=== PATIENT | male | born 1955 | race Two or more races ===

== ENCOUNTER 2020-05-07 11:44 | Inpatient (IN) | payer MEDICARE, OTHER ==
[~2020-05-07] VITALS: Ht 177.8 cm; Wt 59.9 kg
--- NOTE | 2020-05-07 11:55 | Emergency Room Report ---
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 Per EMS patient was Covid +2 days ago. He started having vomiting yesterday. Labs demonstrated sodium of 126. Unable to obtain further history at this time. Allergies: Coded Allergies: No Known Allergies (Unverified , 05/07/20) Patient History Reviewed Nursing Documentation: PMH: Agreed; PSxH: Agreed Review of Systems All Other Systems: limited - Nonverbal Physical Exam Sp02 EP Interpretation: abnormal General Appearance: other - Nonverbal, Chronically Ill ENT: dry mucus membranes Neck: supple, no meningismus Respiratory: no respiratory distress, no accessory muscle use, other - Scattered rhonchi Cardiovascular #1: regular rate, rhythm Gastrointestinal: non tender, soft Musculoskeletal: other - Contracted extremities Psychiatric: other - Nonverbal unable to assess Skin: no rash Medical Decision Making Diagnostic Impression: Primary Impression: COVID-19 Additional Impressions: UTI (urinary tract infection) Hyponatremia ER Course Patient pancultured. Patient started on broad-spectrum antibiotics for pneumonia and UTI. Patient is also COVID-19 positive. Patient mildly hypoxic. His lactate is normal. patient started on albuterol and IV Decadron. Patient admitted for further treatment and evaluation. Laboratory Tests Test 05/07/20 12:09 05/07/20 12:45 Arterial Blood pH 7.479 (7.350-7.450) Arterial Blood Partial Pressure CO2 31.9 mmHg (35.0-45.0) L Arterial Blood Partial Pressure O2 63.2 mmHg (75.0-100.0) L Arterial Blood HCO3 23.2 mmol/L (22.0-26.0) Arterial Blood Oxygen Saturation 92.8 % (95-100) L Arterial Blood Base Excess 0.2 (-2-2) Caleb Test Positive White Blood Count 4.6 K/UL (4.8-10.8) L Red Blood Count 3.77 M/UL (4.70-6.10) L Hemoglobin 10.8 G/DL (14.2-18.0) L Hematocrit 34.1 % (42.0-52.0) L Mean Corpuscular Volume 91 FL (80-99) Mean Corpuscular Hemoglobin 28.8 PG (27.0-31.0) Mean Corpuscular Hemoglobin Concent 31.8 G/DL (32.0-36.0) L Red Cell Distribution Width 13.8 % (11.6-14.8) Platelet Count 244 K/UL (150-450) Mean Platelet Volume 5.3 FL (6.5-10.1) L Neutrophils (%) (Auto) 68.2 % (45.0-75.0) Lymphocytes (%) (Auto) 22.5 % (20.0-45.0) Monocytes (%) (Auto) 5.4 % (1.0-10.0) Eosinophils (%) (Auto) 3.2 % (0.0-3.0) H Basophils (%) (Auto) 0.7 % (0.0-2.0) Prothrombin Time 12.7 SEC (9.30-11.50) H Prothrombin Time INR 1.2 (0.9-1.1) H Activated Partial Thromboplast Time 35 SEC (23-33) H D-Dimer Pending Urine Color Yellow Urine Appearance Clear Urine pH 7 (4.5-8.0) Urine Specific [place] 1.010 (1.005-1.035) Urine Protein Negative (NEGATIVE) Urine Glucose (UA) Negative (NEGATIVE) Urine Ketones Negative (NEGATIVE) Urine Blood Negative (NEGATIVE) Urine Nitrite Negative (NEGATIVE) Urine Bilirubin Negative (NEGATIVE) Urine Urobilinogen 1 MG/DL (0.0-1.0) H Urine Leukocyte Esterase 2+ (NEGATIVE) H Urine RBC Pending Urine WBC Pending Urine Squamous Epithelial Cells Pending Urine Bacteria Pending Sodium Level 129 MMOL/L (136-145) L Potassium Level 4.2 MMOL/L (3.5-5.1) Chloride Level 96 MMOL/L (98-107) L Carbon Dioxide Level 26 MMOL/L (21-32) Anion Gap 7 mmol/L (5-15) Blood Urea Nitrogen 13 mg/dL (7-18) Creatinine 1.1 MG/DL (0.55-1.30) Estimated Glomerular Filtration Rate > 60 mL/min (>60) Glucose Level 98 MG/DL (74-106) Lactic Acid Level Pending Calcium Level 8.1 MG/DL (8.5-10.1) L Magnesium Level Pending Ferritin Pending Total Bilirubin Pending Aspartate Amino Transferase (AST) Pending Alanine Aminotransferase (ALT) Pending Alkaline Phosphatase Pending Lactate Dehydrogenase Pending Troponin I Pending C-Reactive Protein, Quantitative Pending Pro-B-Type Natriuretic Peptide Pending Total Protein Pending Albumin Pending Globulin Pending Microbiology Date/Time Source Procedure Growth Status 05/07/20 13:00 Nasal Nares - Final Complete 05/07/20 13:00 Nasal Nares - Final Complete 05/07/20 12:45 Nasopharynx SARS-CoV-2 RdRp Gene Assay - Final Complete EKG Diagnostic Results Troponin ordered: Yes When was troponin ordered?: May 07, 2020 EKG Time: 13:12 EP Interpretation: Janae Dumas MD Rate: normal - 71 bpm Rhythm: NSR ST Segments: no acute changes ASA given to the pt in ED: No Rhythm Strip Diag. Results Rhythm Strip Time: 13:20 EP Interpretation: yes - Janae Dumas MD Rate: 72 bpm Rhythm: NSR, no PVC's, no ectopy Chest X-Ray Diagnostic Results Chest X-Ray Diagnostic Results : Chest X-Ray Ordered: Yes # of Views/Limited/Complete: 1 View Indication: Other - Fever EP Interpretation: Yes Interpretation: no effusion, no pneumothorax, other - Left lower lobe infiltrate Impression: Other - Pneumonia Electronically Signed by: Janae Dumas MD Other X-Ray Diagnostic Results Other X-Ray Diagnostic Results : X-Ray ordered: Abdominal x-ray # of Views/Limited Vs Complete: 2 View Indication: Other - Vomiting EP Interpretation: Yes Interpretation: nonspecific bowel gas, no sbo, other - Moderate stool Impression: No acute disease Electronically Signed by: Janae Dumas MD Disposition: ADMITTED INPATIENT Condition: Critical Physician Consult: Dr. Aranda Additional Instructions: Please note that this report is being documented using [employer] technology. This can lead to erroneous entry secondary to incorrect interpretation by the dictating instrument. Janae Dumas M.D. May 07, 2020 11:55
[2020-05-07 11:57] VITALS: BP 105/65
--- NOTE | 2020-05-07 11:57 | NUR ---
ED Nurse Note: Patient from [facility] and brought in by [facility] due to abnormal labs of NA 126 and 2 episodes of vomiting. Pt is awake but non verbal, No respiratory distress and came in with indwelling toth cath.
--- NOTE | 2020-05-07 12:30 | NUR ---
ED Nurse Note: Collected blood, Covid9 swab, flu swab and urine specimen then sent.
[2020-05-07] MEDS ORDERED: Acetaminophen 650mg/20.3ml GT ONE (12:45)
[2020-05-07] MEDS ORDERED: LORazepam Inj 2mg/ml 1ml IV ONE (12:45)
[2020-05-07] MEDS ORDERED: Albuterol ud Inhalation HHN ONE ×2 (13:15→15:45)
[2020-05-07] MEDS ORDERED: dexAMETHasone 10mg/ml Inj IV ONE (13:15)
[2020-05-07 13:43] LABS: BASOPHILS % (AUTO) 0.7 % (0.0-2.0); EOSINOPHILS % (AUTO) 3.2 % (0.0-3.0); HEMATOCRIT 34.1 % (42.0-52.0); HEMOGLOBIN 10.8 G/DL (14.2-18.0); LYMPHOCYTES % (AUTO) 22.5 % (20.0-45.0); MEAN CORPUSCULAR VOLUME 91 FL (80-99); MONOCYTES % (AUTO) 5.4 % (1.0-10.0); NEUTROPHILS % (AUTO) 68.2 % (45.0-75.0); PLATELET COUNT 244 K/UL (150-450); RED BLOOD COUNT 3.77 M/UL (4.70-6.10); RED CELL DISTRIBUTION WIDTH 13.8 % (11.6-14.8); WHITE BLOOD COUNT 4.6 K/UL (4.8-10.8)
[2020-05-07 13:49] LABS: APPEARANCE,URINE CLEAR; BILIRUBIN, URINE NEGATIVE (NEGATIVE); COLOR,URINE YELLOW; GLUCOSE, URINE (UA) NEGATIVE (NEGATIVE); KETONES,URINE NEGATIVE (NEGATIVE); LEUKOCYTE ESTERASE ,URINE 2+ (NEGATIVE); NITRITE,URINE NEGATIVE (NEGATIVE); PH,URINE 7 (4.5-8.0); PROTEIN,URINE NEGATIVE (NEGATIVE); UROBILINOGEN,URINE 1 MG/DL (0.0-1.0)
[2020-05-07 13:54] LABS: ANION GAP 7 mmol/L (5-15); BLOOD UREA NITROGEN 13 mg/dL (7-18); CALCIUM 8.1 MG/DL (8.5-10.1); CARBON DIOXIDE 26 MMOL/L (21-32); CHLORIDE 96 MMOL/L (98-107); CREATININE 1.1 MG/DL (0.55-1.30); POTASSIUM 4.2 MMOL/L (3.5-5.1); SODIUM 129 MMOL/L (136-145)
[2020-05-07 13:56] LABS: INR 1.2 (0.9-1.1)
[2020-05-07 14:11] LABS: ALANINE AMINOTRANSFERASE 19 U/L (12-78); ALBUMIN 2.3 G/DL (3.4-5.0); ALBUMIN/GLOBULIN RATIO 0.5 (1.0-2.7); ALKALINE PHOSPHATASE 61 U/L (46-116); ASPARTATE AMINO TRANSFERASE 31 U/L (15-37); BILIRUBIN,TOTAL 0.2 MG/DL (0.2-1.0); FERRITIN 130 NG/ML (8-388); LACTATE DEHYDROGENASE 236 U/L (81-234)
[2020-05-07] MEDS ORDERED: Vancomycin 1 GM in NS 275 ML IVPB ONE (14:15)
[2020-05-07] MEDS ORDERED: Cefepime HCl 2 GM in D5W 55 ML IVPB ONE (14:15)
[2020-05-07] MEDS ORDERED: HUMULIN R100 UNIT/1 SUBQ (14:43)
[2020-05-07] MEDS ORDERED: PROTONIX40 MG ORAL (14:43)
[2020-05-07] MEDS ORDERED: ATORVASTATIN CA40 MG ORAL (14:43)
[2020-05-07] MEDS ORDERED: FERROUS SULFAT325 MG ORAL (14:43)
[2020-05-07] MEDS ORDERED: LOSARTAN POTASS50 MG ORAL (14:43)
[2020-05-07] MEDS ORDERED: CARVEDILOL25 MG ORAL (14:43)
[2020-05-07] MEDS ORDERED: WELLBUTRIN SR100 MG ORAL (14:43)
[2020-05-07] MEDS ORDERED: FLOMAX0.4 MG ORAL (14:43)
[2020-05-07] MEDS ORDERED: BACTRIM DS TAB1 EAC1 ORAL (14:43)
[2020-05-07] MEDS ORDERED: PROSCAR5 MG ORAL (14:43)
[2020-05-07] MEDS ORDERED: GABAPENTIN600 MG ORAL (14:43)
[2020-05-07] MEDS ORDERED: AMLODIPINE BESY10 MG ORAL (14:43)
[2020-05-07] MEDS ORDERED: Enoxaparin 40mg Inj SUBQ SCH (14:45)
--- NOTE | 2020-05-07 15:09 | History and Physical ---
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 He recently tested positive for COVID-19. Patient is nonverbal and unable to provide any history. In ED, he was found to have hyponatremia as well as possible UTI. He does not appear to have respiratory symptoms/signs. Unable to verify patient's PMH, PSH, Fam Hx, Soc Hx due to patient's nonverbal status. Allergies: Coded Allergies: No Known Allergies (Unverified , 05/07/20) COVID-19 Screening Contact w/high risk pt: Yes Experienced COVID-19 symptoms?: No Medication History Scheduled Amlodipine Besylate* (Amlodipine Besylate*), 10 MG ORAL DAILY, (Reported) Atorvastatin Calcium* (Atorvastatin Calcium*), 80 MG ORAL BEDTIME, (Reported) Atorvastatin Calcium* (Atorvastatin Calcium*), 80 MG ORAL BEDTIME, (Reported) Bupropion Sr* (Wellbutrin Sr*), 150 MG ORAL DAILY, (Reported) Carvedilol* (Carvedilol*), 25 MG ORAL EVERY 12 HOURS, (Reported) Ferrous Sulfate* (Ferrous Sulfate*), 450 MG ORAL TID, (Reported) Finasteride* (Proscar*), 5 MG ORAL DAILY, (Reported) Gabapentin* (Gabapentin*), 600 MG ORAL THREE TIMES A DAY, (Reported) Losartan Potassium* (Losartan Potassium*), 100 MG ORAL DAILY, (Reported) Pantoprazole* (Protonix*), 40 MG ORAL DAILY, (Reported) Tamsulosin HCl (Flomax), 0.4 MG ORAL HS, (Reported) Trimethoprim/Sulfamethoxazole 160/800* (Bactrim Ds Tablet*), 1 TAB ORAL DAILY, (Reported) Miscellaneous Medications Insulin Regular, Human (Humulin R), 0 SUBQ, (Reported) Patient History Limited by: medical condition History Provided By: Medical Record Healthcare decision maker Resuscitation status Advanced Directive on File Review of Systems ROS Narrative Unable to obtain ROS due to patient's nonverbal status. Physical Exam General Appearance: no apparent distress, thin HEENT: normocephalic, atraumatic Neck: non-tender, supple, normal inspection Respiratory/Chest: lungs clear, normal breath sounds, no respiratory distress, no accessory muscle use Cardiovascular/Chest: normal rate, regular rhythm, no gallop/murmur Abdomen: soft, no organomegaly Extremities: other - severe contractures Skin Exam: normal pigmentation Neurologic: motor weakness Musculoskeletal: atrophy Last 24 Hour Vital Signs Date Time Temp Pulse Resp B/P (MAP) Pulse Ox O2 Delivery O2 Flow Rate FiO2 05/07/20 13:10 62 20 105/65 05/07/20 11:57 98.0 88 20 105/65 97 Room Air 05/07/20 11:47 99.7 62 20 105/65 (78) Room Air Laboratory Tests Test 05/07/20 12:09 05/07/20 12:45 Arterial Blood pH 7.479 (7.350-7.450) Arterial Blood Partial Pressure CO2 31.9 mmHg (35.0-45.0) L Arterial Blood Partial Pressure O2 63.2 mmHg (75.0-100.0) L Arterial Blood HCO3 23.2 mmol/L (22.0-26.0) Arterial Blood Oxygen Saturation 92.8 % (95-100) L Arterial Blood Base Excess 0.2 (-2-2) Caleb Test Positive White Blood Count 4.6 K/UL (4.8-10.8) L Red Blood Count 3.77 M/UL (4.70-6.10) L Hemoglobin 10.8 G/DL (14.2-18.0) L Hematocrit 34.1 % (42.0-52.0) L Mean Corpuscular Volume 91 FL (80-99) Mean Corpuscular Hemoglobin 28.8 PG (27.0-31.0) Mean Corpuscular Hemoglobin Concent 31.8 G/DL (32.0-36.0) L Red Cell Distribution Width 13.8 % (11.6-14.8) Platelet Count 244 K/UL (150-450) Mean Platelet Volume 5.3 FL (6.5-10.1) L Neutrophils (%) (Auto) 68.2 % (45.0-75.0) Lymphocytes (%) (Auto) 22.5 % (20.0-45.0) Monocytes (%) (Auto) 5.4 % (1.0-10.0) Eosinophils (%) (Auto) 3.2 % (0.0-3.0) H Basophils (%) (Auto) 0.7 % (0.0-2.0) Prothrombin Time 12.7 SEC (9.30-11.50) H Prothromb Time International Ratio 1.2 (0.9-1.1) H Activated Partial Thromboplast Time 35 SEC (23-33) H D-Dimer 0.68 mg/L FEU (0.00-0.49) H Urine Color Yellow Urine Appearance Clear Urine pH 7 (4.5-8.0) Urine Specific [place] 1.010 (1.005-1.035) Urine Protein Negative (NEGATIVE) Urine Glucose (UA) Negative (NEGATIVE) Urine Ketones Negative (NEGATIVE) Urine Blood Negative (NEGATIVE) Urine Nitrite Negative (NEGATIVE) Urine Bilirubin Negative (NEGATIVE) Urine Urobilinogen 1 MG/DL (0.0-1.0) H Urine Leukocyte Esterase 2+ (NEGATIVE) H Urine RBC 0-2 /HPF (0 - 0) H Urine WBC 2-4 /HPF (0 - 0) Urine Squamous Epithelial Cells None /LPF (NONE/OCC) Urine Bacteria Occasional /HPF (NONE) Sodium Level 129 MMOL/L (136-145) L Potassium Level 4.2 MMOL/L (3.5-5.1) Chloride Level 96 MMOL/L (98-107) L Carbon Dioxide Level 26 MMOL/L (21-32) Anion Gap 7 mmol/L (5-15) Blood Urea Nitrogen 13 mg/dL (7-18) Creatinine 1.1 MG/DL (0.55-1.30) Estimat Glomerular Filtration Rate > 60 mL/min (>60) Glucose Level 98 MG/DL (74-106) Lactic Acid Level 0.40 mmol/L (0.4-2.0) Calcium Level 8.1 MG/DL (8.5-10.1) L Magnesium Level 1.7 MG/DL (1.8-2.4) L Ferritin 130 NG/ML (8-388) Total Bilirubin 0.2 MG/DL (0.2-1.0) Aspartate Amino Transf (AST/SGOT) 31 U/L (15-37) Alanine Aminotransferase (ALT/SGPT) 19 U/L (12-78) Alkaline Phosphatase 61 U/L (46-116) Lactate Dehydrogenase 236 U/L (81-234) H Troponin I 0.019 ng/mL (0.000-0.056) C-Reactive Protein, Quantitative 2.5 mg/dL (0.00-0.90) H Pro-B-Type Natriuretic Peptide 57 pg/mL (0-125) Total Protein 6.6 G/DL (6.4-8.2) Albumin 2.3 G/DL (3.4-5.0) L Globulin 4.3 g/dL Albumin/Globulin Ratio 0.5 (1.0-2.7) L Microbiology Date/Time Source Procedure Growth Status 05/07/20 13:20 Rectum Received 05/07/20 13:00 Nasal Nares - Final Complete 05/07/20 13:00 Nasal Nares - Final Complete 05/07/20 12:45 Nasopharynx SARS-CoV-2 RdRp Gene Assay - Final Complete Height (Feet): 5 Height (Inches): 10.00 Weight (Pounds): 120 Medications Current Medications Medications (Trade) Dose Ordered Sig/Luis E Route PRN Reason Start Time Stop Time Status Last Admin Dose Admin Enoxaparin Sodium (Lovenox) 40 mg Q12HR SUBQ 05/07/20 14:45 08/05/20 14:44 05/07/20 15:02 Vancomycin HCl 1 gm/Sodium Chloride 275 ml @ 183.708 mls/hr ONCE ONCE IVPB 05/07/20 14:15 05/07/20 15:44 05/07/20 14:54 Assessment/Plan Assessment/Plan: #COVID-19 infection #Respiratory alkalosis - on ABG - CTX per ID - No indication for dexamethasone or remdesivir at this time per ID - Pulmonary consult linda Hood appreciated - ID consult linda Gold appreciated #Hyponatremia - Na 126 on admission #Renal insufficiency - Nephrology consult linda James appreciated - BMP daily #UTI - CTX per ID #HTN #Dyslipidemia - continue home meds #Hx of CVA #Nonverbal status - MANAGER WOUND CARE eval I spent 61 minutes on this patient's case, and 33 minutes was dedicated to counseling and/or care coordination with RN, telehealth case manager, consulting MD team I spent an additional 36 minutes on review of medical records including prior outside hospital records, consult notes, progress notes, procedures, imaging, labs, hemodynamics, and other clinical documentation. Maximiliano Pacheco M.D. May 07, 2020 15:09
--- NOTE | 2020-05-07 15:21 | NUR ---
ED Nurse Note: Placed patient on negative pressure room. Called RT for breathing treatment.
--- NOTE | 2020-05-07 15:35 | Diagnostic Imaging Report ---
EXAM: XR Abdomen, 2 Views CLINICAL HISTORY: VOMITING TECHNIQUE: Frontal view of the abdomen/pelvis with upright view of the abdomen. COMPARISON: None FINDINGS: Hardware: None. Abdomen: Nonobstructive but nonspecific bowel gas pattern. Moderate to large amount of stool. No free air. Bones: Chronic appearing deformity of the proximal right femur. Soft tissues: Normal. IMPRESSION: Nonobstructive but nonspecific bowel gas pattern. Moderate to large amount of stool.
--- NOTE | 2020-05-07 15:36 | Diagnostic Imaging Report ---
EXAM: XR Chest, 1 View CLINICAL HISTORY: AMS TECHNIQUE: Frontal view of the chest. COMPARISON: None FINDINGS: Hardware: None. Lungs/pleura: Mild left basilar atelectasis. No focal consolidation. No pleural effusion or pneumothorax. Heart/mediastinum: Normal. No cardiomegaly. Soft tissues: Unremarkable. Bones: No acute fracture. Upper abdomen: Normal. Other: The patient's hand projects over the right midlung and limits evaluation. IMPRESSION: The patient's hand projects over the right midlung and limits evaluation. Otherwise, no acute disease identified.
--- NOTE | 2020-05-07 15:50 | NUR ---
ED Nurse Note: RT at the bed side for breathing treatment.
--- NOTE | 2020-05-07 15:57 | NUR ---
ED Nurse Note: Report given to Sherman ELIZONDO of telemetry unit.
[2020-05-07 16:35] VITALS: BP 131/78
--- NOTE | 2020-05-07 16:35 | NUR ---
NURSE NOTES: PATIENT WAS BROUGHT TO TELE VIA [facility] FROM ED. COVID 19 + CALLED AND PROTOCOL IMPLEMENTED. PERSONAL BELONGINGS REVIEWED AND NOTED. PATIENT RECEIVED A/A/OX1, RESPONSE TO TACTILE STIMULI. NONVERBAL. PATIENT APPEARED TO BE CONTRACTED TO ALL EXTREMITIES UPPER AND LOWER. SKIN ASSESSMENT RENDERED AND INTACT WITH ALL THE BONY PROMINENCES. FEW DRY SCABS ON UPPER TORSO. VSS AND RECORDED. ON RA. NO ACUTE RESP DISTRESS NOTED. PIV PATENT AND INTACT. BAILEY CATH INPLACED AND ANCHORED WELL. HOB ELEVATED FOR ASPIRATION PRECAUTIONS. OBSERVED NPO XCEPT MEDS/ICE CHIPS. ADMISSION PROFILE DONE AND ADMISSION ORDERS ENTERED BY PMD. SIDERAILS ARE UPX3. CALL LIGHT IS WITHIN REACH. BED ALARM AND LOCKED ACTIVATED. WILL CONT THE PLAN OF CARE.
--- NOTE | 2020-05-07 18:10 | Consultation ---
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 He recently tested positive for COVID-19. Patient is nonverbal and unable to provide any history. In ED, he was found to have hyponatremia as well as possible UTI. He does not appear to have respiratory symptoms/signs. Unable to verify patient's PMH, PSH, Fam Hx, Soc Hx due to patient's nonverbal status. Allergies: Coded Allergies: No Known Allergies (Unverified , 05/07/20) Medication History Scheduled Amlodipine Besylate* (Amlodipine Besylate*), 10 MG ORAL DAILY, (Reported) Atorvastatin Calcium* (Atorvastatin Calcium*), 80 MG ORAL BEDTIME, (Reported) Atorvastatin Calcium* (Atorvastatin Calcium*), 80 MG ORAL BEDTIME, (Reported) Bupropion Sr* (Wellbutrin Sr*), 150 MG ORAL DAILY, (Reported) Carvedilol* (Carvedilol*), 25 MG ORAL EVERY 12 HOURS, (Reported) Ferrous Sulfate* (Ferrous Sulfate*), 450 MG ORAL TID, (Reported) Finasteride* (Proscar*), 5 MG ORAL DAILY, (Reported) Gabapentin* (Gabapentin*), 600 MG ORAL THREE TIMES A DAY, (Reported) Losartan Potassium* (Losartan Potassium*), 100 MG ORAL DAILY, (Reported) Pantoprazole* (Protonix*), 40 MG ORAL DAILY, (Reported) Tamsulosin HCl (Flomax), 0.4 MG ORAL HS, (Reported) Trimethoprim/Sulfamethoxazole 160/800* (Bactrim Ds Tablet*), 1 TAB ORAL DAILY, (Reported) Miscellaneous Medications Insulin Regular, Human (Humulin R), 0 SUBQ, (Reported) Patient History Healthcare decision maker Resuscitation status Advanced Directive on File No Review of Systems ROS Narrative Unable to obtain due to non-verbal status Physical Exam General Appearance: no apparent distress Lines, tubes and drains: peripheral HEENT: normocephalic, atraumatic Neck: non-tender Respiratory/Chest: chest wall non-tender, normal breath sounds Extremities: normal range of motion Skin Exam: normal pigmentation Last 24 Hour Vital Signs Date Time Temp Pulse Resp B/P (MAP) Pulse Ox O2 Delivery O2 Flow Rate FiO2 05/07/20 16:56 Room Air 05/07/20 16:35 96.8 77 20 131/78 (95) 98 05/07/20 16:19 97.8 81 17 117/80 96 Room Air 05/07/20 16:02 69 20 100 Room Air 21 83 20 95 05/07/20 13:40 62 20 105/65 97 05/07/20 13:10 62 20 105/65 05/07/20 11:57 98.0 88 20 105/65 97 Room Air 05/07/20 11:47 99.7 62 20 105/65 (78) Room Air Laboratory Tests Test 05/07/20 12:09 05/07/20 12:45 Arterial Blood pH 7.479 (7.350-7.450) Arterial Blood Partial Pressure CO2 31.9 mmHg (35.0-45.0) L Arterial Blood Partial Pressure O2 63.2 mmHg (75.0-100.0) L Arterial Blood HCO3 23.2 mmol/L (22.0-26.0) Arterial Blood Oxygen Saturation 92.8 % (95-100) L Arterial Blood Base Excess 0.2 (-2-2) Caleb Test Positive White Blood Count 4.6 K/UL (4.8-10.8) L Red Blood Count 3.77 M/UL (4.70-6.10) L Hemoglobin 10.8 G/DL (14.2-18.0) L Hematocrit 34.1 % (42.0-52.0) L Mean Corpuscular Volume 91 FL (80-99) Mean Corpuscular Hemoglobin 28.8 PG (27.0-31.0) Mean Corpuscular Hemoglobin Concent 31.8 G/DL (32.0-36.0) L Red Cell Distribution Width 13.8 % (11.6-14.8) Platelet Count 244 K/UL (150-450) Mean Platelet Volume 5.3 FL (6.5-10.1) L Neutrophils (%) (Auto) 68.2 % (45.0-75.0) Lymphocytes (%) (Auto) 22.5 % (20.0-45.0) Monocytes (%) (Auto) 5.4 % (1.0-10.0) Eosinophils (%) (Auto) 3.2 % (0.0-3.0) H Basophils (%) (Auto) 0.7 % (0.0-2.0) Prothrombin Time 12.7 SEC (9.30-11.50) H Prothromb Time International Ratio 1.2 (0.9-1.1) H Activated Partial Thromboplast Time 35 SEC (23-33) H D-Dimer 0.68 mg/L FEU (0.00-0.49) H Urine Color Yellow Urine Appearance Clear Urine pH 7 (4.5-8.0) Urine Specific [place] 1.010 (1.005-1.035) Urine Protein Negative (NEGATIVE) Urine Glucose (UA) Negative (NEGATIVE) Urine Ketones Negative (NEGATIVE) Urine Blood Negative (NEGATIVE) Urine Nitrite Negative (NEGATIVE) Urine Bilirubin Negative (NEGATIVE) Urine Urobilinogen 1 MG/DL (0.0-1.0) H Urine Leukocyte Esterase 2+ (NEGATIVE) H Urine RBC 0-2 /HPF (0 - 0) H Urine WBC 2-4 /HPF (0 - 0) Urine Squamous Epithelial Cells None /LPF (NONE/OCC) Urine Bacteria Occasional /HPF (NONE) Sodium Level 129 MMOL/L (136-145) L Potassium Level 4.2 MMOL/L (3.5-5.1) Chloride Level 96 MMOL/L (98-107) L Carbon Dioxide Level 26 MMOL/L (21-32) Anion Gap 7 mmol/L (5-15) Blood Urea Nitrogen 13 mg/dL (7-18) Creatinine 1.1 MG/DL (0.55-1.30) Estimat Glomerular Filtration Rate > 60 mL/min (>60) Glucose Level 98 MG/DL (74-106) Lactic Acid Level 0.40 mmol/L (0.4-2.0) Calcium Level 8.1 MG/DL (8.5-10.1) L Magnesium Level 1.7 MG/DL (1.8-2.4) L Ferritin 130 NG/ML (8-388) Total Bilirubin 0.2 MG/DL (0.2-1.0) Aspartate Amino Transf (AST/SGOT) 31 U/L (15-37) Alanine Aminotransferase (ALT/SGPT) 19 U/L (12-78) Alkaline Phosphatase 61 U/L (46-116) Lactate Dehydrogenase 236 U/L (81-234) H Troponin I 0.019 ng/mL (0.000-0.056) C-Reactive Protein, Quantitative 2.5 mg/dL (0.00-0.90) H Pro-B-Type Natriuretic Peptide 57 pg/mL (0-125) Total Protein 6.6 G/DL (6.4-8.2) Albumin 2.3 G/DL (3.4-5.0) L Globulin 4.3 g/dL Albumin/Globulin Ratio 0.5 (1.0-2.7) L Urine Legionella Antigen Pending Microbiology Date/Time Source Procedure Growth Status 05/07/20 13:20 Rectum Received 05/07/20 13:00 Nasal Nares - Final Complete 05/07/20 13:00 Nasal Nares - Final Complete 05/07/20 12:45 Nasopharynx SARS-CoV-2 RdRp Gene Assay - Final Complete Height (Feet): 5 Height (Inches): 10.00 Weight (Pounds): 132 Medications Current Medications Medications (Trade) Dose Ordered Sig/Luis E Route PRN Reason Start Time Stop Time Status Last Admin Dose Admin Atorvastatin Calcium (Lipitor) 80 mg BEDTIME ORAL 05/07/20 21:00 08/05/20 20:59 Bisacodyl (Dulcolax) 10 mg DAILYPRN PRN RECTAL Constipation 05/07/20 15:45 08/05/20 15:44 Bupropion HCl (Wellbutrin SR) 150 mg DAILY ORAL 05/08/20 09:00 06/07/20 08:59 UNV Dextrose (Dextrose 50%) 25 ml Q30M PRN IV Hypoglycemia 05/07/20 15:45 08/05/20 15:44 Dextrose (Dextrose 50%) 50 ml Q30M PRN IV Hypoglycemia 05/07/20 15:45 08/05/20 15:44 Heparin Sodium (Porcine) (Heparin 5000 units/ml) 5,000 units EVERY 12 HOURS SUBQ 05/08/20 09:00 06/22/20 08:59 Pantoprazole (Protonix) 40 mg DAILY IV 05/08/20 09:00 06/07/20 08:59 Assessment/Plan Diagnosis [place]: #Hyponatremia- hypovolumic #COVID infection #UTI #HLD #HTN #h/o CVA #nonverbal #failure to thrive - IVF on D5NS - ID eval - on ceftriaxone - follow cx - monitor sodium - GI eval - swallow eval - pulmonary eval - monitor UOP - replete lytes prn Time spent 65min Barak Aranda M.D. May 07, 2020 18:10
[2020-05-07] MEDS ORDERED: cefTRIAXone 1 GM in D5W 50 ML IVPB SCH (18:15)
--- NOTE | 2020-05-07 18:15 | Infectious Diseases Prog Note ---
Assessment/Plan Assessment/Plan Full consult dictated: A) 1) covid-19 virus infection, fevers 2) complicated uti 3) pmh noted 4) allergies - nkda P) 1) ceftriaxone 2) f/u on cultures 3) no indication for remdesivir or steroids 4) thank you Subjective Allergies: Coded Allergies: No Known Allergies (Unverified , 05/07/20) Objective Last 24 Hour Vital Signs Date Time Temp Pulse Resp B/P (MAP) Pulse Ox O2 Delivery O2 Flow Rate FiO2 05/07/20 16:56 Room Air 05/07/20 16:35 96.8 77 20 131/78 (95) 98 05/07/20 16:19 97.8 81 17 117/80 96 Room Air 05/07/20 16:02 69 20 100 Room Air 21 83 20 95 05/07/20 13:40 62 20 105/65 97 05/07/20 13:10 62 20 105/65 05/07/20 11:57 98.0 88 20 105/65 97 Room Air 05/07/20 11:47 99.7 62 20 105/65 (78) Room Air Height (Feet): 5 Height (Inches): 10.00 Weight (Pounds): 132 Microbiology Date/Time Source Procedure Growth Status 05/07/20 13:20 Rectum Received 05/07/20 13:00 Nasal Nares - Final Complete 05/07/20 13:00 Nasal Nares - Final Complete 05/07/20 12:45 Nasopharynx SARS-CoV-2 RdRp Gene Assay - Final Complete Laboratory Tests Test 05/07/20 12:09 05/07/20 12:45 Arterial Blood pH 7.479 (7.350-7.450) Arterial Blood Partial Pressure CO2 31.9 mmHg (35.0-45.0) L Arterial Blood Partial Pressure O2 63.2 mmHg (75.0-100.0) L Arterial Blood HCO3 23.2 mmol/L (22.0-26.0) Arterial Blood Oxygen Saturation 92.8 % (95-100) L Arterial Blood Base Excess 0.2 (-2-2) Caleb Test Positive White Blood Count 4.6 K/UL (4.8-10.8) L Red Blood Count 3.77 M/UL (4.70-6.10) L Hemoglobin 10.8 G/DL (14.2-18.0) L Hematocrit 34.1 % (42.0-52.0) L Mean Corpuscular Volume 91 FL (80-99) Mean Corpuscular Hemoglobin 28.8 PG (27.0-31.0) Mean Corpuscular Hemoglobin Concent 31.8 G/DL (32.0-36.0) L Red Cell Distribution Width 13.8 % (11.6-14.8) Platelet Count 244 K/UL (150-450) Mean Platelet Volume 5.3 FL (6.5-10.1) L Neutrophils (%) (Auto) 68.2 % (45.0-75.0) Lymphocytes (%) (Auto) 22.5 % (20.0-45.0) Monocytes (%) (Auto) 5.4 % (1.0-10.0) Eosinophils (%) (Auto) 3.2 % (0.0-3.0) H Basophils (%) (Auto) 0.7 % (0.0-2.0) Prothrombin Time 12.7 SEC (9.30-11.50) H Prothromb Time International Ratio 1.2 (0.9-1.1) H Activated Partial Thromboplast Time 35 SEC (23-33) H D-Dimer 0.68 mg/L FEU (0.00-0.49) H Urine Color Yellow Urine Appearance Clear Urine pH 7 (4.5-8.0) Urine Specific Nerinx 1.010 (1.005-1.035) Urine Protein Negative (NEGATIVE) Urine Glucose (UA) Negative (NEGATIVE) Urine Ketones Negative (NEGATIVE) Urine Blood Negative (NEGATIVE) Urine Nitrite Negative (NEGATIVE) Urine Bilirubin Negative (NEGATIVE) Urine Urobilinogen 1 MG/DL (0.0-1.0) H Urine Leukocyte Esterase 2+ (NEGATIVE) H Urine RBC 0-2 /HPF (0 - 0) H Urine WBC 2-4 /HPF (0 - 0) Urine Squamous Epithelial Cells None /LPF (NONE/OCC) Urine Bacteria Occasional /HPF (NONE) Sodium Level 129 MMOL/L (136-145) L Potassium Level 4.2 MMOL/L (3.5-5.1) Chloride Level 96 MMOL/L (98-107) L Carbon Dioxide Level 26 MMOL/L (21-32) Anion Gap 7 mmol/L (5-15) Blood Urea Nitrogen 13 mg/dL (7-18) Creatinine 1.1 MG/DL (0.55-1.30) Estimat Glomerular Filtration Rate > 60 mL/min (>60) Glucose Level 98 MG/DL (74-106) Lactic Acid Level 0.40 mmol/L (0.4-2.0) Calcium Level 8.1 MG/DL (8.5-10.1) L Magnesium Level 1.7 MG/DL (1.8-2.4) L Ferritin 130 NG/ML (8-388) Total Bilirubin 0.2 MG/DL (0.2-1.0) Aspartate Amino Transf (AST/SGOT) 31 U/L (15-37) Alanine Aminotransferase (ALT/SGPT) 19 U/L (12-78) Alkaline Phosphatase 61 U/L (46-116) Lactate Dehydrogenase 236 U/L (81-234) H Troponin I 0.019 ng/mL (0.000-0.056) C-Reactive Protein, Quantitative 2.5 mg/dL (0.00-0.90) H Pro-B-Type Natriuretic Peptide 57 pg/mL (0-125) Total Protein 6.6 G/DL (6.4-8.2) Albumin 2.3 G/DL (3.4-5.0) L Globulin 4.3 g/dL Albumin/Globulin Ratio 0.5 (1.0-2.7) L Urine Legionella Antigen Pending Current Medications Medications (Trade) Dose Ordered Sig/Luis E Route PRN Reason Start Time Stop Time Status Last Admin Dose Admin Atorvastatin Calcium (Lipitor) 80 mg BEDTIME ORAL 05/07/20 21:00 08/05/20 20:59 Bisacodyl (Dulcolax) 10 mg DAILYPRN PRN RECTAL Constipation 05/07/20 15:45 08/05/20 15:44 Bupropion HCl (Wellbutrin SR) 150 mg DAILY ORAL 05/08/20 09:00 06/07/20 08:59 UNV Dextrose (Dextrose 50%) 25 ml Q30M PRN IV Hypoglycemia 05/07/20 15:45 08/05/20 15:44 Dextrose (Dextrose 50%) 50 ml Q30M PRN IV Hypoglycemia 05/07/20 15:45 08/05/20 15:44 Heparin Sodium (Porcine) (Heparin 5000 units/ml) 5,000 units EVERY 12 HOURS SUBQ 05/08/20 09:00 06/22/20 08:59 Magnesium Sulfate 100 ml @ 100 mls/hr Q1H IVPB 05/07/20 18:15 05/07/20 20:14 Pantoprazole (Protonix) 40 mg DAILY IV 05/08/20 09:00 06/07/20 08:59 Nickolas Goldstein MD May 07, 2020 18:15
--- NOTE | 2020-05-07 18:47 | NUR ---
NURSE NOTES: sent urine culture to lab from indwelling cath. will cont to monitor.
--- NOTE | 2020-05-07 19:07 | NUR ---
NURSE HAND-OFF REPORT: Important Events on Shift:[ADMISSION RENDERED; BATHE AND SKIN ASSESSMENT DONE; PERSONAL BELONGINGS NOTED. ] Patient Status: [STABLE] Diet: [NPO XCEPT MEDS AND ICE CHIPS] Pending Orders: [LABAS AND CXR] Pending Results/Labs:[IN AM] Pending MD notification:[] Latest Vital Signs: Temperature 96.8 , Pulse 77 , B/P 131 /78 , Respiratory Rate 20 , O2 SAT 98 , Room Air, O2 Flow Rate . Vital Sign Comment: [] EKG Rhythm: Rhythm change?: MD Notified?: - MD Response: Latest Hankins Fall Score: 35 Fall Risk: Medium Risk Safety Measures: Call light Within Reach, Bed Alarm Zone 1, Side Rails Side Rails x2, Bed position Low and Locked. Fall Precautions: Yellow Socks Yellow Gown Report given to [MURRAY].
--- NOTE | 2020-05-07 19:51 | NUR ---
NURSE NOTES: Patient received from Mari ELIZONDO. Patient A&O x 0. Saturating well on room air. Patient is non verbal. Patient on NPO for swallow eval. IV site patent and intact on Left FA 20G SL. Bed in lowest position and locked. Call light and bedside table within reach. Will continue plan of care.
[2020-05-07 20:00] VITALS: BP 109/69
[2020-05-07] MEDS: Atorvastatin 80mg tab ORAL SCH ×2 (20:08→21:00)
--- NOTE | 2020-05-07 21:14 | Consultation ---
DATE OF CONSULTATION: 05/07/2020 INFECTIOUS DISEASE CONSULTATION CONSULTING PHYSICIAN: Nickolas Goldstein MD. ATTENDING PHYSICIAN: Barak Aranda MD. REFERRING PHYSICIANS: 1. Barak Aranda MD. 2. Maximiliano Pacheco MD. REASON FOR CONSULTATION: Urinary tract infection, COVID-19 infection, fevers. CHIEF COMPLAINT: The patient's chief complaint coming in the hospital is hyponatremia. HISTORY OF PRESENT ILLNESS: This is a 64-year-old male, who is not a very good historian. The patient presents to [facility] with what looks like hyponatremia from [facility] care facility. The patient has tested positive for COVID infection by molecular testing and PCR testing, I believe. Influenza testing is negative. The patient has significant hyponatremia with a sodium 129. The patient was noted to have 2+ leukocyte esterase on urinalysis and could have complicated UTI with hyponatremia. The patient also has fevers. Infectious Disease consultation is requested. Infectious Disease consultation requested because of the possible complicated urinary tract infection, complicated UTI, and also COVID-19 infection. The patient's saturations are stable. Initial chest x-ray was negative. The patient was placed empirically on Rocephin. He was given vancomycin and cefepime in the emergency room. MAR was noted. Orders were noted. Notes were reviewed. The patient did have fevers also in the emergency room. REVIEW OF SYSTEMS: CONSTITUTIONAL: As discussed, he did have fevers in the emergency room. He comes with generalized weakness and hyponatremia. HEAD AND NECK: No head pain or neck pain. CARDIAC: No chest pain or pressors. PULMONARY: No significant cough, congestion, shortness of breath, hemoptysis, or secretions GASTROINTESTINAL: No nausea, vomiting, abdominal pain, or diarrhea. GENITOURINARY: He has a Gregory. SKIN: No rash or itching. EXTREMITIES: No extremity pain. NEUROLOGICAL: No seizures. Generalized fatigue. MUSCULOSKELETAL: No joint pain. PAST MEDICAL HISTORY: The patient has a past medical history of hypertension, I believe, essential hypertension. He has history of CVA. He is nonverbal. He has history of renal insufficiency. He has hyponatremia. He could have depression, he is on Wellbutrin, and also dyslipidemia in addition to CVA, hypertension, weakness, and renal insufficiency. ALLERGIES: He has no known drug allergies. No antibiotic allergies. SOCIAL HISTORY: Negative for smoking, alcohol, or drug abuse. FAMILY HISTORY: Noncontributory. Negative for tuberculosis or cancer. MEDICATIONS: Upon reviewing the MAR, he is on following medications; he is on Wellbutrin, pantoprazole, heparin, atorvastatin, IV fluids. He was given vancomycin, cefepime, enoxaparin, dexamethasone, albuterol, lorazepam, and acetaminophen. Outside medications were noted and reconciliated. PHYSICAL EXAMINATION: VITAL SIGNS: Temperature 96.8, pulse rate 77, respiratory rate 20, blood pressure 131/78. Saturation 98% on room air. The patient has not been hypoxic on room air. GENERAL: Weak, nonverbal. He is in no acute distress. HEAD AND NECK: Oral exam, no thrush. Eye exam, no icterus. Normocephalic. Neck is supple. No JVD. HEART: Regular. No gallop or murmur. No friction rub. LUNGS: Clear bilaterally. No rhonchi or rales. ABDOMEN: Soft. Positive bowel sounds. Nontender. SKIN: No rash or dermatitis. MUSCULOSKELETAL: No joint pain or septic arthritis. Lower extremities are without cellulitis. PERIPHERAL VASCULAR: No gangrene or cyanosis. GENITOURINARY: The patient has a Gregory. Urine is cloudy. LINE SITES: Without phlebitis. NEUROLOGIC: General weakness, alert, responsive. LABORATORY DATA: UA with 2+ leukocyte esterase and bacteria. Creatinine 1.1. LFTs noted. Sodium 129. White count 4.6, hemoglobin 10.8. Cultures - SARS nasopharyngeal molecular testing or COVID testing was positive. Influenza testing negative. Outside COVID testing positive. Blood and urine cultures are pending. IMAGING: Chest x-ray shows no acute disease. No pneumonia. Chest x-ray initially was negative. Followup chest x-ray has been ordered. ASSESSMENT AND PLAN: 1. The patient has COVID-19 virus infection and fevers. He did have a temperature initially of 99.7. I believe he has history of temperatures. The patient's chest x-ray is negative and saturations are stable. There is no indication for remdesivir or dexamethasone at this time. The patient also looks like he has a complicated UTI, significant positive urinalysis with hyponatremia. At this time, we will continue antibiotic, Rocephin empirically for gram-negative coverage. Continue Rocephin for complicated urinary tract infection. Check urine culture and blood cultures. Monitor fevers. Monitor for hypoxia for COVID-19 infection. The patient is currently in COVID isolation. Continue Rocephin for now for UTI and continue supportive care for COVID-19 virus infection. Monitor fevers and check urine culture, blood cultures, laboratories, and followup chest x-ray. 2. Hyponatremia. Continue IV fluids per Renal and Medicine. 3. The patient is anemic. 4. Possible hyperlipidemia or dyslipidemia. 5. CVA. 6. Weakness. 7. Nonverbal. 8. Hypertension. Blood pressure treatment per primary care team. 9. Renal insufficiency. 10. Skin care per protocol. 11. The patient has no known drug allergies. 12. Social history is negative. 13. Family history is noncontributory. 14. MAR is noted. 15. Case discussed with RN. 16. Continue treatment per primary consultants. Thank you, I will follow. Nickolas Goldstein M.D. DR: RADHA JOB#: [id number] CC:
[2020-05-07] MEDS: cefTRIAXone 1 GM in D5W 50 ML IVPB SCH (21:43)
[2020-05-07] MEDS ORDERED: Varibar Pudding 230ml MC PRN (22:00)
[2020-05-07] MEDS ORDERED: Varibar Honey 250ml MC PRN (22:00)
[2020-05-07] MEDS ORDERED: Varibar Thin Liquid powder 148gm MC PRN (22:00)
[2020-05-07] MEDS ORDERED: Varibar Nectar 240ml MC PRN (22:00)
--- NOTE | 2020-05-07 22:00 | NUR ---
NURSE NOTES: Gave Magnesium late patient only had 1 IV access and notified [facility]. Also wasted PO atorvastatin for safety because patient was sleeping and has difficulty swallowing, risk for aspiration. Swallow eval tomorrow
[2020-05-08] VITALS (7 sets, daily range): BP systolic 102–131; BP diastolic 64–80
[2020-05-08 04:16] LABS: HEMATOCRIT 34.7 % (42.0-52.0); HEMOGLOBIN 10.7 G/DL (14.2-18.0); LYMPHOCYTES % (AUTO) 13.8 % (20.0-45.0); MEAN CORPUSCULAR VOLUME 91 FL (80-99); MONOCYTES % (AUTO) 5.7 % (1.0-10.0); NEUTROPHILS % (AUTO) 77.6 % (45.0-75.0); PLATELET COUNT 247 K/UL (150-450); RED CELL DISTRIBUTION WIDTH 13.5 % (11.6-14.8)
[2020-05-08 04:33] LABS: ANION GAP 7 mmol/L (5-15); BLOOD UREA NITROGEN 12 mg/dL (7-18); CALCIUM 7.9 MG/DL (8.5-10.1); CARBON DIOXIDE 25 MMOL/L (21-32); CHLORIDE 98 MMOL/L (98-107); CREATININE 1.1 MG/DL (0.55-1.30); POTASSIUM 4.8 MMOL/L (3.5-5.1); SODIUM 130 MMOL/L (136-145)
--- NOTE | 2020-05-08 07:18 | NUR ---
NURSE HAND-OFF REPORT: Important Events on Shift:[None] Patient Status: [] Diet: [NPO] Pending Orders: [] Pending Results/Labs:[] Pending MD notification:[] Latest Vital Signs: Temperature 97.7 , Pulse 77 , B/P 102 /64 , Respiratory Rate 18 , O2 SAT 94 , Room Air, O2 Flow Rate . Vital Sign Comment: [] EKG Rhythm: Sinus Rhythm Rhythm change?: N MD Notified?: - MD Response: Latest Hankins Fall Score: 55 Fall Risk: High Risk Safety Measures: Call light Within Reach, Bed Alarm Zone 1, Side Rails Side Rails x3, Bed position Low and Locked. Fall Precautions: Yellow Socks Yellow Gown Door Sign Patient Fall Education Report given to [Ana Cristina RN].
--- NOTE | 2020-05-08 07:23 | NUR ---
NURSE NOTES: Pt received from Tena ELIZONDO. Pt in bed awake and responds with mumble and nod, bed low and locked call light within reach. no distress noted.
--- NOTE | 2020-05-08 08:44 | Consultation ---
DATE OF CONSULTATION: 05/08/2020 CHIEF COMPLAINT: Nausea and vomiting. HISTORY OF PRESENT ILLNESS: Most of history per chart. The patient is a poor historian. The patient is a 64-year-old male with past medical history of CVA, very poorly verbal, history of hypertension, history of hypercholesteremia, possibly depression, BPH, chronic GERD, was admitted to the hospital with complaint of vomiting, was found to have a urinary tract infection, also COVID positive pneumonia. PAST MEDICAL HISTORY: Significant for: 1. History of hypertension. 2. CVA. 3. BPH. 4. Hypercholesteremia. 5. Chronic GERD. 6. Iron-deficiency. PAST SURGICAL HISTORY: Unknown. ALLERGIES: No known drug allergies. MEDICATIONS: Please see medication reconciliation list. SOCIAL HISTORY: Currently the patient lives in a fci. No recent history of tobacco, alcohol, or drug abuse. FAMILY HISTORY: Noncontributory. REVIEW OF SYSTEMS: Unable to obtain. PHYSICAL EXAMINATION: VITAL SIGNS: Temperature is 97.7, pulse 78, respirations 18, blood pressure is 106/64. HEENT: Normocephalic and atraumatic. Sclerae anicteric. NECK: Supple. No evidence of obvious lymphadenopathy. CARDIOVASCULAR: Regular rate and rhythm. Plus S1 and S2. LUNGS: Decreased breath sounds bilaterally and diffusely. ABDOMEN: Soft, nontender. No rebound. No guarding. No peritoneal sign. EXTREMITIES: No cyanosis. No clubbing. No edema. LABORATORY DATA: White count is 4, hemoglobin 10, hematocrit 34, platelets 247. Creatinine is 1.1, magnesium 1.7. ASSESSMENT: 1. Pneumonia. 2. Hyponatremia. 3. UTI. 4. Constipation. 5. Normocytic anemia. 6. History of CVA. 7. History of . 8. History of hypercholesteremia. 9. History of BPH. PLAN: Vomiting might be the combination of COVID positive pneumonia, UTI, hyponatremia, and also mild constipation. According to the nurses, has not had any vomiting overnight. The patient is NPO for swallow evaluation. Therefore, we are going to start IV fluids, D5 normal saline at 75 mL an hour while waiting for the swallow evaluation. If the patient passes swallow, we will start him on diet and slowly stop the IV fluids. In terms of hyponatremia, follow with Nephrology recommendation. Anemia is normocytic in nature. Apparently, the patient has prior history of anemia and is on iron. Plan to do anemia workup including iron panel, B12, folate, stool for OB. GI procedures on hold at this time unless there is emergency. In terms of constipation, KUB showed evidence of some constipation. Plan to start the patient on Colace and MiraLAX and monitor for bowel movement. Alejandro Jimenez M.D. DR: Sarai JOB#: [id number] CC:
--- NOTE | 2020-05-08 08:44 | Diagnostic Imaging Report ---
EXAM: XR Chest, 1 View CLINICAL HISTORY: INFECT TECHNIQUE: Frontal view of the chest. COMPARISON: Chest radiograph May 07, 2020. FINDINGS/IMPRESSION: No focal consolidation, pleural effusion, or pneumothorax. Numerous skin folds project over the lung alva. Cardiomegaly. Tortuous aorta. Old, healed posterior right rib fractures. Note, the right lung apex is obscured by the patient's hand. Recommend follow-up radiographs to have patient's hand excluded from the field-of- view.
[2020-05-08] MEDS: Pantoprazole Inj IV SCH (09:55)
[2020-05-08] MEDS: Docusate 100mg cap ORAL SCH ×2 (09:56→17:36)
[2020-05-08] MEDS: Heparin 5000 units/ml inj SUBQ SCH ×2 (09:56→21:13)
--- NOTE | 2020-05-08 10:58 | NUR ---
CASE MANAGEMENT:INITIAL REVIEW 64 YR OLD MALE BIBA FROM [facility] CC;ABNORMAL LABS SI;COVID POSITIVE. HYPONATREMIA. UTI. 99.7 88 20 105/65 95% ON RA WBC 4.6 NA 129 MAG 1.7 LDH 236 CRP 2.5 ALB 2.3 PT 12.7 INR 1.2 APTT 35 D-DIMER 0.68 UA+ UROBILINOGEN, LEUKOCYTE ESTERASE, RBC RAPID COVID ~ POSITIVE CXR ~ The patient's hand projects over the right midlung and limits evaluation. Otherwise, no acute disease identified. ABD XRAY ~ ortuous aorta. Old, healed posterior right rib fractures. IS;IVF N S BOLUS TYLENOL GT ATIVAN IV DECADRON IV X2 ROCEPHIN IV VANCOMYCIN IV PROVENTIL HHN ONCE ADMITTED TO TELE 05/07/20 @ 1543 TELE STATUS DCP;FROM [facility]
[2020-05-08] MEDS: BuPROPion SR 150mg tab ORAL SCH (11:00)
--- NOTE | 2020-05-08 12:57 | NUR ---
NURSE NOTES: Wellbutrin held because pt is pending st eval and does not seem to be able to solerate swallowing whole pills, and this one cant be crushed. Dr. Viera aware that we are not giving anything PO for now.
--- NOTE | 2020-05-08 13:06 | NUR ---
RD ASSESSMENT & RECOMMENDATIONS SEE CARE ACTIVITY FOR COMPLETE ASSESSMENT DAILY ESTIMATED NEEDS: Needs based on Pulmonary 60kg 25-35 kcals/kg 9389-7515 total kcals 1-1.5 g protein/kg 60-90 g total protein 25-30 mL/kg 6127-1496 total fluid mLs NUTRITION DIAGNOSIS: Swallowing difficulty r/t h/o CVA, as evidenced by pt is non verbal, NPO w/ pending [facility] eval. CURRENT DIET: NPO, pending [facility] PO DIET RECOMMENDATIONS: Liberalized Regular diet, texture per [facility] ADDITIONAL RECOMMENDATIONS: 1) Add Ensure Enlive w/ meals w/ diet order F/up w/ [facility], need for non oral feeds 2) Check lytes, replete as needed 3) Monitor weight, maintain calibrated weights 4) rec D5 while NPO
--- NOTE | 2020-05-08 13:15 | Consultation ---
DATE OF CONSULTATION: 05/08/2020 PULMONARY CONSULTATION HISTORY OF PRESENT ILLNESS: This is a 64-year-old male admitted to the hospital with a diagnosis of COVID pneumonia. The patient had a rapid antigen test that was positive in the emergency room. The patient is a resident at a extended care facility. He was sent in with hyponatremia. The patient has tested as an outpatient for COVID-19 as well. The patient started having emesis, was found to be hyponatremic. No other history is available at this point in time. PAST MEDICAL HISTORY: Previous CVA, hypertension, hyperlipidemia, psychiatric disorder, BPH. HOME MEDICATIONS: Flomax, losartan, ferrous sulfate, Coreg, bupropion, Lipitor, amlodipine. REVIEW OF SYSTEMS: Not obtainable. PHYSICAL EXAMINATION: GENERAL: Reveals a 64-year-old male. VITAL SIGNS: Blood pressure is 102/70, heart rate 74, respiratory rate 18, O2 saturation 98% on 2 L of oxygen. HEENT: Unremarkable. CHEST: Clear breath sounds bilaterally. ABDOMEN: Soft. EXTREMITIES: There is no edema. LABORATORY DATA: Lab testing shows white count 4000, hemoglobin 10.7. Sodium 130, glucose 129. ABG, pH 7.47, pCO2 31, pO2 63. Coags show D-dimer of 0.6. Serology is negative. X-ray chest shows old healed right rib fractures. Apart from that, there is no focal consolidation. IMPRESSION: 1. COVID-19 pneumonia. 2. Hyponatremia. 3. CVA. 4. . 5. Hyperlipidemia. DISCUSSION: The patient is saturating well on room air. I would recommend holding off on further therapies for COVID-19 pneumonia as he is not hypoxic. I note he has received Decadron one dose yesterday. Defer further choice to ID specialist. We will follow as chief passenger ship steward/stewardess. Jaguar Gann M.D. DR: Aster JOB#: [id number] CC:
--- NOTE | 2020-05-08 15:50 | Cardiology Report ---
APPROVED REPORT EKG Measurement Heart [id number] <Conclusion> Normal sinus rhythm Normal ECG
--- NOTE | 2020-05-08 16:32 | Nephrology Progress Note ---
Assessment/Plan Plan #Hyponatremia- hypovolumic #COVID infection #UTI #HLD #HTN #h/o CVA #nonverbal #failure to thrive - IVF on D5NS - ID eval - on ceftriaxone - follow cx - monitor sodium - GI eval - swallow eval - pulmonary eval - monitor UOP - replete lytes prn Time spent 65min Subjective ROS Limited/Unobtainable: Yes Subjective sodium is slowly uptrending with hydration afebrile vitals stable Objective Objective Last 24 Hour Vital Signs Date Time Temp Pulse Resp B/P (MAP) Pulse Ox O2 Delivery O2 Flow Rate FiO2 05/08/20 12:00 71 05/08/20 12:00 98.1 78 21 107/80 (89) 96 05/08/20 09:00 Room Air 05/08/20 08:00 73 05/08/20 08:00 97.7 78 21 102/71 (81) 96 05/08/20 04:00 97.7 78 18 102/64 (77) 94 05/08/20 04:00 77 05/08/20 00:00 97.5 71 19 102/64 (77) 96 05/08/20 00:00 68 05/07/20 21:00 Room Air 05/07/20 20:00 69 05/07/20 20:00 97.7 69 18 109/69 (82) 95 05/07/20 16:56 Room Air 05/07/20 16:35 96.8 77 20 131/78 (95) 98 Intake and Output 05/07/20 05/08/20 19:00 07:00 Intake Total 1238.7 ml Output Total 100 ml 700 ml Balance 1138.7 ml -700 ml Intake IV Total 1238.7 ml Output Urine Total 100 ml 700 ml # Bowel Movements 1 Laboratory Tests 05/08/20 03:30: White Blood Count 4.0L, Red Blood Count 3.80L, Hemoglobin 10.7L, Hematocrit 34.7L, Mean Corpuscular Volume 91, Mean Corpuscular Hemoglobin 28.2, Mean Corpuscular Hemoglobin Concent 30.8L, Red Cell Distribution Width 13.5, Platelet Count 247, Mean Platelet Volume 4.7L, Neutrophils (%) (Auto) 77.6H, Lymphocytes (%) (Auto) 13.8L, Monocytes (%) (Auto) 5.7, Eosinophils (%) (Auto) 0.0, B asophils (%) (Auto) 3.0H, Sodium Level 130L, Potassium Level 4.8, Chloride Level 98, Carbon Dioxide Level 25, Anion Gap 7, Blood Urea Nitrogen 12, Creatinine 1.1, Estimat Glomerular Filtration Rate > 60, Glucose Level 129H, Calcium Level 7.9L Height (Feet): 5 Height (Inches): 10.00 Weight (Pounds): 132 Objective General Appearance: no apparent distress Lines, tubes and drains: peripheral HEENT: normocephalic, atraumatic Neck: non-tender Respiratory/Chest: chest wall non-tender, normal breath sounds Extremities: normal range of motion Skin Exam: normal pigmentation Barak Aranda M.D. May 08, 2020 16:32
--- NOTE | 2020-05-08 17:08 | Consultation ---
History of Present Illness General Date patient seen: May 08, 2020 Reason for Hospitalization: Abnormal Labs Present Illness HPI 64M currently admitted to [facility] for abnormal labs was c/o abd pain cramping 4/10 without radiation early this AM. no n/v/f/c. passing flatus. intermittent cramping pain. surgery called to evaluate. patient seen, chart reviewed, patient examined. electrolytes being replaced Allergies: Coded Allergies: No Known Allergies (Unverified , 05/07/20) COVID-19 Screening Contact w/high risk pt: Yes Experienced COVID-19 symptoms?: No Medication History Scheduled Amlodipine Besylate* (Amlodipine Besylate*), 10 MG ORAL DAILY, (Reported) Atorvastatin Calcium* (Atorvastatin Calcium*), 80 MG ORAL BEDTIME, (Reported) Atorvastatin Calcium* (Atorvastatin Calcium*), 80 MG ORAL BEDTIME, (Reported) Bupropion Sr* (Wellbutrin Sr*), 150 MG ORAL DAILY, (Reported) Carvedilol* (Carvedilol*), 25 MG ORAL EVERY 12 HOURS, (Reported) Ferrous Sulfate* (Ferrous Sulfate*), 450 MG ORAL TID, (Reported) Finasteride* (Proscar*), 5 MG ORAL DAILY, (Reported) Gabapentin* (Gabapentin*), 600 MG ORAL THREE TIMES A DAY, (Reported) Losartan Potassium* (Losartan Potassium*), 100 MG ORAL DAILY, (Reported) Pantoprazole* (Protonix*), 40 MG ORAL DAILY, (Reported) Tamsulosin HCl (Flomax), 0.4 MG ORAL HS, (Reported) Trimethoprim/Sulfamethoxazole 160/800* (Bactrim Ds Tablet*), 1 TAB ORAL DAILY, (Reported) Miscellaneous Medications Insulin Regular, Human (Humulin R), 0 SUBQ, (Reported) Patient History History Provided By: Patient, Medical Record, PMD Healthcare decision maker Resuscitation status Advanced Directive on File No Past Medical/Surgical History Past Medical/Surgical History: (1) Abdominal pain (2) Hyponatremia (3) UTI (urinary tract infection) (4) COVID-19 Review of Systems Review of Symptoms General ROS: no weight loss or fever Psychological ROS: no depression or mood changes, no memory loss Ophthalmic ROS: no visual changes or eye irritation ENT ROS: no nasal congestion, hearing loss, dizziness Allergy and Immunology ROS: no allergic symptoms or urticaria Hematological and Lymphatic ROS: no swollen glands, unusual bleeding or bruising Endocrine ROS: no polyuria, polydipsia, weight changes, temperature intolerance Respiratory ROS: no cough, shortness of breath, or wheezing Cardiovascular ROS: no chest pain or dyspnea on exertion Gastrointestinal ROS: denies abdominal pain, bright red blood in stool. Musculoskeletal ROS: no myalgias or arthralgias Neurological ROS: no TIA or stroke symptoms Dermatological ROS: no new or changing skin lesions, rashes or pruritis Physical Exam Physical Exam General appearance: alert, cooperative, no distress, appears stated age Head: Normocephalic, without obvious abnormality, atraumatic Eyes: conjunctivae/corneas clear. PERRL, EOM's intact. Fundi benign Throat: Lips, mucosa, and tongue normal. Teeth and gums normal Neck: supple, symmetrical, trachea midline, no adenopathy, thyroid: not enlarged, symmetric, no tenderness/mass/nodules, no carotid bruit and no JVD Lungs: clear to auscultation bilaterally Heart: regular rate and rhythm, S1, S2 normal, no murmur, click, rub or gallop Abdomen: soft, non-tender. Bowel sounds normal. No masses, no organomegaly Extremities: extremities normal, atraumatic, no cyanosis or edema Pulses: 2+ and symmetric Skin: Skin color, texture, turgor normal. No rashes or lesions Neurologic: Grossly normal Last 24 Hour Vital Signs Date Time Temp Pulse Resp B/P (MAP) Pulse Ox O2 Delivery O2 Flow Rate FiO2 05/08/20 16:00 96.7 80 20 108/71 (83) 96 05/08/20 16:00 67 05/08/20 12:00 71 05/08/20 12:00 98.1 78 21 107/80 (89) 96 05/08/20 09:00 Room Air 05/08/20 08:00 73 05/08/20 08:00 97.7 78 21 102/71 (81) 96 05/08/20 04:00 97.7 78 18 102/64 (77) 94 05/08/20 04:00 77 05/08/20 00:00 97.5 71 19 102/64 (77) 96 05/08/20 00:00 68 05/07/20 21:00 Room Air 05/07/20 20:00 69 05/07/20 20:00 97.7 69 18 109/69 (82) 95 Intake and Output 05/07/20 05/08/20 19:00 07:00 Intake Total 1238.7 ml Output Total 100 ml 700 ml Balance 1138.7 ml -700 ml Intake IV Total 1238.7 ml Output Urine Total 100 ml 700 ml # Bowel Movements 1 Laboratory Tests Test 05/08/20 03:30 White Blood Count 4.0 K/UL (4.8-10.8) L Red Blood Count 3.80 M/UL (4.70-6.10) L Hemoglobin 10.7 G/DL (14.2-18.0) L Hematocrit 34.7 % (42.0-52.0) L Mean Corpuscular Volume 91 FL (80-99) Mean Corpuscular Hemoglobin 28.2 PG (27.0-31.0) Mean Corpuscular Hemoglobin Concent 30.8 G/DL (32.0-36.0) L Red Cell Distribution Width 13.5 % (11.6-14.8) Platelet Count 247 K/UL (150-450) Mean Platelet Volume 4.7 FL (6.5-10.1) L Neutrophils (%) (Auto) 77.6 % (45.0-75.0) H Lymphocytes (%) (Auto) 13.8 % (20.0-45.0) L Monocytes (%) (Auto) 5.7 % (1.0-10.0) Eosinophils (%) (Auto) 0.0 % (0.0-3.0) Basophils (%) (Auto) 3.0 % (0.0-2.0) H Sodium Level 130 MMOL/L (136-145) L Potassium Level 4.8 MMOL/L (3.5-5.1) Chloride Level 98 MMOL/L (98-107) Carbon Dioxide Level 25 MMOL/L (21-32) Anion Gap 7 mmol/L (5-15) Blood Urea Nitrogen 12 mg/dL (7-18) Creatinine 1.1 MG/DL (0.55-1.30) Estimat Glomerular Filtration Rate > 60 mL/min (>60) Glucose Level 129 MG/DL (74-106) H Calcium Level 7.9 MG/DL (8.5-10.1) L Height (Feet): 5 Height (Inches): 10.00 Weight (Pounds): 132 Medications Current Medications Medications (Trade) Dose Ordered Sig/Luis E Route PRN Reason Start Time Stop Time Status Last Admin Dose Admin Atorvastatin Calcium (Lipitor) 80 mg BEDTIME ORAL 05/07/20 21:00 08/05/20 20:59 Barium Sulfate (Varibar Honey) 250 ml NOW PRN RAD 05/07/20 22:00 05/10/20 21:52 Barium Sulfate (Varibar [place]) 240 ml NOW PRN MC RAD 05/07/20 22:00 05/10/20 21:52 Barium Sulfate (Varibar Pudding) 230 ml NOW PRN RAD 05/07/20 22:00 05/10/20 21:52 Barium Sulfate (Varibar Thin Liquid powder) 148 gm NOW PRN RAD 05/07/20 22:00 05/10/20 21:52 Bisacodyl (Dulcolax) 10 mg DAILYPRN PRN RECTAL Constipation 05/07/20 15:45 08/05/20 15:44 Bupropion HCl (Wellbutrin SR) 150 mg DAILY ORAL 05/08/20 11:00 06/07/20 10:59 Ceftriaxone Sodium 1 gm/ Dextrose 50 ml @ 100 mls/hr Q24H IVPB 05/07/20 20:00 05/14/20 19:59 05/07/20 21:43 Dextrose (Dextrose 50%) 25 ml Q30M PRN IV Hypoglycemia 05/07/20 15:45 08/05/20 15:44 Dextrose (Dextrose 50%) 50 ml Q30M PRN IV Hypoglycemia 05/07/20 15:45 08/05/20 15:44 Docusate Sodium (Colace) 100 mg TWICE A DAY ORAL 05/08/20 09:00 06/07/20 08:59 05/08/20 09:56 Heparin Sodium (Porcine) (Heparin 5000 units/ml) 5,000 units EVERY 12 HOURS SUBQ 05/08/20 09:00 06/22/20 08:59 05/08/20 09:56 Pantoprazole (Protonix) 40 mg DAILY IV 05/08/20 09:00 06/07/20 08:59 05/08/20 09:55 Polyethylene Glycol (Miralax) 17 gm BEDTIME ORAL 05/08/20 21:00 06/07/20 20:59 Potassium Chloride 10 meq/ Dextrose/Sodium Chloride 1,005 ml @ 75 mls/hr [id number] IV 05/08/20 08:00 06/07/20 07:59 05/08/20 09:55 Assessment/Plan Problem List: (1) Hyponatremia ICD Codes: E87.1 - Hypo-osmolality and hyponatremia SNOMED: 44702977 (2) UTI (urinary tract infection) ICD Codes: N39.0 - Urinary tract infection, site not specified SNOMED: 56296120 (3) COVID-19 ICD Codes: U07.1 - COVID-19 SNOMED: 907656641 (4) Abdominal pain Assessment & Plan: KUB noted likely constipated recommend bowel regimen hold on further imaging okay for diet activity as tolerated will follow with exam and recs thank you Abdomen: Nonobstructive but nonspecific bowel gas pattern. Moderate to large amount of stool. No free air. Bones: Chronic appearing deformity of the proximal right femur. Soft tissues: Normal. IMPRESSION: Nonobstructive but nonspecific bowel gas pattern. Moderate to large amount of stool. ICD Codes: R10.9 - Unspecified abdominal pain SNOMED: 97238672 Harry Brown May 08, 2020 17:08
--- NOTE | 2020-05-08 17:43 | NUR ---
NURSE HAND-OFF REPORT: Important Events on Shift:[no remarkable events, pt stable throughout shift plan is to keep him npo until after swallow eval. weak cough present. ] Patient Status: [in bed stable awake] Diet: [NPO] Pending Orders: [] Pending Results/Labs:[] Pending MD notification:[] Latest Vital Signs: Temperature 96.7 , Pulse 67 , B/P 108 /71 , Respiratory Rate 20 , O2 SAT 96 , Room Air, O2 Flow Rate . Vital Sign Comment: [] EKG Rhythm: Sinus Rhythm Rhythm change?: N MD Notified?: - MD Response: Latest Hankins Fall Score: 55 Fall Risk: High Risk Safety Measures: Call light Within Reach, Bed Alarm Zone 1, Side Rails Side Rails x3, Bed position Low and Locked. Fall Precautions: Yellow Socks Yellow Gown Door Sign Patient Fall Education Report given to [Pending Rn assignment]. Addendum: 05/08/20 at 1923 by Ana Cristina Robb RN Report given to Liliane ELIZONDO
--- NOTE | 2020-05-08 18:53 | General Progress Note ---
Subjective Date patient seen: May 08, 2020 ROS Limited/Unobtainable: Yes - Patient nonverbal Allergies: Coded Allergies: No Known Allergies (Unverified , 05/07/20) Subjective Interval events: no acute events overnight. Today, patient appears to be resting comfortably in bed. Nonverbal. Objective Last 24 Hour Vital Signs Date Time Temp Pulse Resp B/P (MAP) Pulse Ox O2 Delivery O2 Flow Rate FiO2 05/08/20 16:00 96.7 80 20 108/71 (83) 96 05/08/20 16:00 67 05/08/20 12:00 71 05/08/20 12:00 98.1 78 21 107/80 (89) 96 05/08/20 09:00 Room Air 05/08/20 08:00 73 05/08/20 08:00 97.7 78 21 102/71 (81) 96 05/08/20 04:00 97.7 78 18 102/64 (77) 94 05/08/20 04:00 77 05/08/20 00:00 97.5 71 19 102/64 (77) 96 05/08/20 00:00 68 05/07/20 21:00 Room Air 05/07/20 20:00 69 05/07/20 20:00 97.7 69 18 109/69 (82) 95 Intake and Output 05/07/20 05/08/20 19:00 07:00 Intake Total 1238.7 ml Output Total 100 ml 700 ml Balance 1138.7 ml -700 ml Intake IV Total 1238.7 ml Output Urine Total 100 ml 700 ml # Bowel Movements 1 Laboratory Tests 05/08/20 03:30: White Blood Count 4.0L, Red Blood Count 3.80L, Hemoglobin 10.7L, Hematocrit 34.7L, Mean Corpuscular Volume 91, Mean Corpuscular Hemoglobin 28.2, Mean Corpuscular Hemoglobin Concent 30.8L, Red Cell Distribution Width 13.5, Platelet Count 247, Mean Platelet Volume 4.7L, Neutrophils (%) (Auto) 77.6H, Lymphocytes (%) (Auto) 13.8L, Monocytes (%) (Auto) 5.7, Eosinophils (%) (Auto) 0.0, B asophils (%) (Auto) 3.0H, Sodium Level 130L, Potassium Level 4.8, Chloride Level 98, Carbon Dioxide Level 25, Anion Gap 7, Blood Urea Nitrogen 12, Creatinine 1.1, Estimat Glomerular Filtration Rate > 60, Glucose Level 129H, Calcium Level 7.9L Height (Feet): 5 Height (Inches): 10.00 Weight (Pounds): 132 Objective General Appearance: no apparent distress, thin, resting comfortably HEENT: normocephalic, atraumatic Neck: non-tender, supple, normal inspection Respiratory/Chest: lungs clear, normal breath sounds, no respiratory distress, no accessory muscle use Cardiovascular/Chest: normal rate, regular rhythm, no gallop/murmur Abdomen: soft, no organomegaly Extremities: other - severe contractures Skin Exam: normal pigmentation Neurologic: motor weakness Musculoskeletal: atrophy Assessment/Plan Assessment/Plan: #COVID-19 infection #Respiratory alkalosis - on ABG Stable. No respiratory distress - CTX per ID - No indication for dexamethasone or remdesivir at this time per ID - Pulmonary consult linda Hood appreciated - ID consult linda Gold appreciated #Hyponatremia - Na 126 on admission. 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 Maximiliano Pacheco M.D. May 08, 2020 18:53
--- NOTE | 2020-05-08 19:45 | NUR ---
NURSE NOTES: Received patient in bed, confused, disoriented, unable to make his needs known, contracted in upper and lower extremities, IV site is clean dry and intact, patient is NPO pending the ST evaluation. Call light is within reach, bed is lowered, locked, alarm is on, will continue to monitor for comfort and safety.
[2020-05-08] MEDS: cefTRIAXone 1 GM in D5W 50 ML IVPB SCH (20:00)
[2020-05-08] MEDS: Miralax 17gm pkt ORAL SCH (21:00)
[2020-05-08] MEDS: Atorvastatin 80mg tab ORAL SCH (21:00)
[2020-05-09 04:00] VITALS: BP 122/74
--- NOTE | 2020-05-09 06:52 | NUR ---
NURSE HAND-OFF REPORT: Important Events on Shift: patient is NPO Patient Status:full code Diet: NPO Pending Orders: Pending Results/Labs: Pending MD notification: Latest Vital Signs: Temperature 97.8 , Pulse 74 , B/P 122 /74 , Respiratory Rate 18 , O2 SAT 98 , Room Air, O2 Flow Rate . Vital Sign Comment: EKG Rhythm: Sinus Rhythm Rhythm change?: N MD Notified?: - MD Response: Latest Hankins Fall Score: 55 Fall Risk: High Risk Safety Measures: Call light Within Reach, Bed Alarm Zone 1, Side Rails Side Rails x3, Bed position Low and Locked. Fall Precautions: Yellow Socks Yellow Gown Door Sign Patient Fall Education Report given to Ana Cristina ELIZONDO
[2020-05-09 07:00] LABS: HEMATOCRIT 35.4 % (42.0-52.0); HEMOGLOBIN 11.1 G/DL (14.2-18.0); MEAN CORPUSCULAR VOLUME 91 FL (80-99); PLATELET COUNT 247 K/UL (150-450); RED CELL DISTRIBUTION WIDTH 13.4 % (11.6-14.8)
--- NOTE | 2020-05-09 07:01 | NUR ---
NURSE NOTES: Pt received from Char ELIZONDO pt in bed resting. contraction of arm and legs noted. Bed low and locked. call light within reach. pt NPO (with sign on door) pending ST eval.
[2020-05-09 07:13] LABS: ANION GAP 6 mmol/L (5-15); BLOOD UREA NITROGEN 10 mg/dL (7-18); CARBON DIOXIDE 27 MMOL/L (21-32); CHLORIDE 99 MMOL/L (98-107); CREATININE 1.1 MG/DL (0.55-1.30); POTASSIUM 4.3 MMOL/L (3.5-5.1); SODIUM 132 MMOL/L (136-145)
[2020-05-09 08:00] VITALS: BP 125/72
[2020-05-09] MEDS: BuPROPion SR 150mg tab ORAL SCH (09:00)
[2020-05-09] MEDS: Docusate 100mg cap ORAL SCH ×2 (09:00→17:48)
[2020-05-09] MEDS: Pantoprazole Inj IV SCH (09:19)
[2020-05-09] MEDS: Heparin 5000 units/ml inj SUBQ SCH ×2 (09:20→22:22)
--- NOTE | 2020-05-09 09:53 | General Progress Note ---
Subjective ROS Limited/Unobtainable: No Allergies: Coded Allergies: No Known Allergies (Unverified , 05/07/20) Objective Last 24 Hour Vital Signs Date Time Temp Pulse Resp B/P (MAP) Pulse Ox O2 Delivery O2 Flow Rate FiO2 05/09/20 08:00 98.0 76 18 125/72 (89) 97 05/09/20 08:00 78 05/09/20 04:00 75 05/09/20 04:00 97.8 74 18 122/74 (90) 98 05/09/20 00:00 79 05/08/20 23:55 98.2 69 20 131/70 (90) 96 05/08/20 22:33 73 05/08/20 22:12 Room Air 05/08/20 20:00 98.6 70 20 126/65 (85) 98 05/08/20 16:00 96.7 80 20 108/71 (83) 96 05/08/20 16:00 67 05/08/20 12:00 71 05/08/20 12:00 98.1 78 21 107/80 (89) 96 Intake and Output 05/08/20 05/09/20 19:00 07:00 Output Total 1350 ml Balance -1350 ml Output Urine Total 1350 ml Laboratory Tests 05/09/20 06:30: White Blood Count 3.0L, Red Blood Count 3.90L, Hemoglobin 11.1L, Hematocrit 35.4L, Mean Corpuscular Volume 91, Mean Corpuscular Hemoglobin 28.5, Mean Corpuscular Hemoglobin Concent 31.3L, Red Cell Distribution Width 13.4, Platelet Count 247, Mean Platelet Volume 4.8L, Neutrophils (%) (Auto) , Lymphocytes (%) (Auto) , Monocytes (%) (Auto) , Eosinophils (%) (Auto) , Basophils (%) (Auto) , Differential Total Cells Counted 100, Neutrophils % (Manual) 73, Lymphocytes % (Manual) 20, Monocytes % (Manual) 7, Eosinophils % (Manual) 0, Basophils % (Manual) 0, Band Neutrophils 0, Platelet Estimate Adequate, Platelet Morphology Normal, Anisocytosis 1+, Sodium Level 132L, Potassium Level 4.3, Chloride Level 99, Carbon Dioxide Level 27, Anion Gap 6, Blood Urea Nitrogen 10, Creatinine 1.1, Estimat Glomerular Filtration Rate > 60, Glucose Level 99, Calcium Level 8.0L, Phosphorus Level 3.0, Magnesium Level 1.8, Vitamin B12 Level 1177H, Folate 9.5 Height (Feet): 5 Height (Inches): 10.00 Weight (Pounds): 132 General Appearance: no apparent distress EENT: normal ENT inspection Neck: supple Cardiovascular: normal rate Respiratory/Chest: decreased breath sounds Abdomen: hypoactive bowel sounds Extremities: non-tender Assessment/Plan Assessment/Plan: 1. Pneumonia. 2. Hyponatremia. 3. UTI. 4. Constipation. 5. Normocytic anemia. 6. History of CVA. 7. History of Covid 8. History of hypercholesteremia. 9. History of BPH. had BM bowel regimen stable H&H pending swallow eval iron panel repeat labs will fu Alejandro Jimenez MD May 09, 2020 09:53
--- NOTE | 2020-05-09 10:01 | Nephrology Progress Note ---
Assessment/Plan Plan #Hyponatremia- hypovolumic #COVID infection #UTI #HLD #HTN #h/o CVA #nonverbal #failure to thrive - IVF on D5NS - ID eval - on ceftriaxone - follow cx - monitor sodium - GI eval - swallow eval - pulmonary eval - monitor UOP - replete lytes prn Time spent 65min Subjective ROS Limited/Unobtainable: Yes Subjective sodium is slowly uptrending with hydration afebrile vitals stable Objective Objective Last 24 Hour Vital Signs Date Time Temp Pulse Resp B/P (MAP) Pulse Ox O2 Delivery O2 Flow Rate FiO2 05/09/20 09:00 Room Air 05/09/20 08:00 98.0 76 18 125/72 (89) 97 05/09/20 08:00 78 05/09/20 04:00 75 05/09/20 04:00 97.8 74 18 122/74 (90) 98 05/09/20 00:00 79 05/08/20 23:55 98.2 69 20 131/70 (90) 96 05/08/20 22:33 73 05/08/20 22:12 Room Air 05/08/20 20:00 98.6 70 20 126/65 (85) 98 05/08/20 16:00 96.7 80 20 108/71 (83) 96 05/08/20 16:00 67 05/08/20 12:00 71 05/08/20 12:00 98.1 78 21 107/80 (89) 96 Intake and Output 05/08/20 05/09/20 19:00 07:00 Output Total 1350 ml Balance -1350 ml Output Urine Total 1350 ml Laboratory Tests 05/09/20 06:30: White Blood Count 3.0L, Red Blood Count 3.90L, Hemoglobin 11.1L, Hematocrit 35. 4L, Mean Corpuscular Volume 91, Mean Corpuscular Hemoglobin 28.5, Mean Corpuscular Hemoglobin Concent 31.3L, Red Cell Distribution Width 13.4, Platelet Count 247, Mean Platelet Volume 4.8L, Neutrophils (%) (Auto) , Lymphocytes (%) (Auto) , Monocytes (%) (Auto) , Eosinophils (%) (Auto) , Basophils (%) (Auto) , Differential Total Cells Counted 100, Neutrophils % (Manual) 73, Lymphocytes % (Manual) 20, Monocytes % (Manual) 7, Eosinophils % (Manual) 0, Basophils % (Manual) 0, Band Neutrophils 0, Platelet Estimate Adequate, Platelet Morphology Normal, Anisocytosis 1+, Sodium Level 132L, Potassium Level 4.3, Chloride Level 99, Carbon Dioxide Level 27, Anion Gap 6, Blood Urea Nitrogen 10, Creatinine 1.1, Estimat Glomerular Filtration Rate > 60, Glucose Level 99, Calcium Level 8.0L, Phosphorus Level 3.0, Magnesium Level 1.8, Vitamin B12 Level 1177H, Folate 9.5 Height (Feet): 5 Height (Inches): 10.00 Weight (Pounds): 132 Objective General Appearance: no apparent distress Lines, tubes and drains: peripheral HEENT: normocephalic, atraumatic Neck: non-tender Respiratory/Chest: chest wall non-tender, normal breath sounds Extremities: normal range of motion Skin Exam: normal pigmentation Barak Aranda M.D. May 09, 2020 10:01
--- NOTE | 2020-05-09 10:17 | Pulmonology Progress Note ---
Subjective ROS Limited/Unobtainable: Yes Interval Events: None new Constitutional: Reports: no symptoms HEENT: Repors: no symptoms Respiratory: Reports: no symptoms Cardiovascular: Reports: no symptoms Gastrointestinal/Abdominal: Reports: no symptoms Allergies: Coded Allergies: No Known Allergies (Unverified , 05/07/20) Objective Last 24 Hour Vital Signs Date Time Temp Pulse Resp B/P (MAP) Pulse Ox O2 Delivery O2 Flow Rate FiO2 05/09/20 09:00 Room Air 05/09/20 08:00 98.0 76 18 125/72 (89) 97 05/09/20 08:00 78 05/09/20 04:00 75 05/09/20 04:00 97.8 74 18 122/74 (90) 98 05/09/20 00:00 79 05/08/20 23:55 98.2 69 20 131/70 (90) 96 05/08/20 22:33 73 05/08/20 22:12 Room Air 05/08/20 20:00 98.6 70 20 126/65 (85) 98 05/08/20 16:00 96.7 80 20 108/71 (83) 96 05/08/20 16:00 67 05/08/20 12:00 71 05/08/20 12:00 98.1 78 21 107/80 (89) 96 Intake and Output 05/08/20 05/09/20 19:00 07:00 Output Total 1350 ml Balance -1350 ml Output Urine Total 1350 ml General Appearance: no acute distress HEENT: normocephalic Respiratory: chest wall non-tender, lungs clear Cardiovascular: normal peripheral pulses Abdomen: normal bowel sounds Microbiology Date/Time Source Procedure Growth Status 05/07/20 13:20 Rectum Received 05/07/20 13:00 Nasal Nares - Final Complete 05/07/20 13:00 Nasal Nares - Final Complete 05/07/20 12:45 Nasopharynx SARS-CoV-2 RdRp Gene Assay - Final Complete Laboratory Tests 05/09/20 06:30: White Blood Count 3.0L, Red Blood Count 3.90L, Hemoglobin 11.1L, Hematocrit 35.4L, Mean Corpuscular Volume 91, Mean Corpuscular Hemoglobin 28.5, Mean Corpuscular Hemoglobin Concent 31.3L, Red Cell Distribution Width 13.4, Platelet Count 247, Mean Platelet Volume 4.8L, Neutrophils (%) (Auto) , Lymphocytes (%) (Auto) , Monocytes (%) (Auto) , Eosinophils (%) (Auto) , Basophils (%) (Auto) , Differential Total Cells Counted 100, Neutrophils % (Manual) 73, Lymphocytes % (Manual) 20, Monocytes % (Manual) 7, Eosinophils % (Manual) 0, Basophils % (Manual) 0, Band Neutrophils 0, Platelet Estimate Adequate, Platelet Morphology Normal, Anisocytosis 1+, Sodium Level 132L, Potassium Level 4.3, Chloride Level 99, Carbon Dioxide Level 27, Anion Gap 6, Blood Urea Nitrogen 10, Creatinine 1.1, Estimat Glomerular Filtration Rate > 60, Glucose Level 99, Calcium Level 8.0L, Phosphorus Level 3.0, Magnesium Level 1.8, Vitamin B12 Level 1177H, Folate 9.5 Current Medications Medications (Trade) Dose Ordered Sig/Luis E Route PRN Reason Start Time Stop Time Status Last Admin Dose Admin Atorvastatin Calcium (Lipitor) 80 mg BEDTIME ORAL 05/07/20 21:00 08/05/20 20:59 Barium Sulfate (Varibar Honey) 250 ml NOW PRN MC RAD 05/07/20 22:00 05/10/20 21:52 Barium Sulfate (Varibar [place]) 240 ml NOW PRN MC RAD 05/07/20 22:00 05/10/20 21:52 Barium Sulfate (Varibar Pudding) 230 ml NOW PRN MC RAD 05/07/20 22:00 05/10/20 21:52 Barium Sulfate (Varibar Thin Liquid powder) 148 gm NOW PRN MC RAD 05/07/20 22:00 05/10/20 21:52 Bisacodyl (Dulcolax) 10 mg DAILYPRN PRN RECTAL Constipation 05/07/20 15:45 08/05/20 15:44 Bupropion HCl (Wellbutrin SR) 150 mg DAILY ORAL 05/08/20 11:00 06/07/20 10:59 Ceftriaxone Sodium 1 gm/ Dextrose 50 ml @ 100 mls/hr Q24H IVPB 05/07/20 20:00 05/14/20 19:59 05/08/20 20:00 Dextrose (Dextrose 50%) 25 ml Q30M PRN IV Hypoglycemia 05/07/20 15:45 08/05/20 15:44 Dextrose (Dextrose 50%) 50 ml Q30M PRN IV Hypoglycemia 05/07/20 15:45 08/05/20 15:44 Docusate Sodium (Colace) 100 mg TWICE A DAY ORAL 05/08/20 09:00 06/07/20 08:59 05/08/20 09:56 Heparin Sodium (Porcine) (Heparin 5000 units/ml) 5,000 units EVERY 12 HOURS SUBQ 05/08/20 09:00 06/22/20 08:59 05/09/20 09:20 Pantoprazole (Protonix) 40 mg DAILY IV 05/08/20 09:00 06/07/20 08:59 05/09/20 09:19 Polyethylene Glycol (Miralax) 17 gm BEDTIME ORAL 05/08/20 21:00 06/07/20 20:59 Potassium Chloride 10 meq/ Dextrose/Sodium Chloride 1,005 ml @ 75 mls/hr [id number] IV 05/08/20 08:00 06/07/20 07:59 05/09/20 05:57 Assessment/Plan Assessment/Plan IMPRESSION: 1. COVID-19 pneumonia. 2. Hyponatremia. 3. CVA. 4. Hyperlipidemia. DISCUSSION: The patient is saturating well on room air. I would recommend holding off on further therapies for COVID-19 pneumonia as he is not hypoxic. I will follow as crap game box person. Isiah Coffey Omar Syed MD May 09, 2020 10:17
--- NOTE | 2020-05-09 10:44 | General Progress Note ---
Subjective Date patient seen: May 09, 2020 ROS Limited/Unobtainable: Yes Allergies: Coded Allergies: No Known Allergies (Unverified , 05/07/20) Subjective Interval events: fever to 101.2 this morning per nurse report Today, patient remains lying in bed, no distress or pain noted. Nonverbal. Objective Last 24 Hour Vital Signs Date Time Temp Pulse Resp B/P (MAP) Pulse Ox O2 Delivery O2 Flow Rate FiO2 05/09/20 09:00 Room Air 05/09/20 08:00 98.0 76 18 125/72 (89) 97 05/09/20 08:00 78 05/09/20 04:00 75 05/09/20 04:00 97.8 74 18 122/74 (90) 98 05/09/20 00:00 79 05/08/20 23:55 98.2 69 20 131/70 (90) 96 05/08/20 22:33 73 05/08/20 22:12 Room Air 05/08/20 20:00 98.6 70 20 126/65 (85) 98 05/08/20 16:00 96.7 80 20 108/71 (83) 96 05/08/20 16:00 67 05/08/20 12:00 71 05/08/20 12:00 98.1 78 21 107/80 (89) 96 Intake and Output 05/08/20 05/09/20 19:00 07:00 Output Total 1350 ml Balance -1350 ml Output Urine Total 1350 ml Laboratory Tests 05/09/20 06:30: White Blood Count 3.0L, Red Blood Count 3.90L, Hemoglobin 11.1L, Hematocrit 35.4L, Mean Corpuscular Volume 91, Mean Corpuscular Hemoglobin 28.5, Mean Corpuscular Hemoglobin Concent 31.3L, Red Cell Distribution Width 13.4, Platelet Count 247, Mean Platelet Volume 4.8L, Neutrophils (%) (Auto) , Lymphocytes (%) (Auto) , Monocytes (%) (Auto) , Eosinophils (%) (Auto) , Basophils (%) (Auto) , Differential Total Cells Counted 100, Neutrophils % (Manual) 73, Lymphocytes % (Manual) 20, Monocytes % (Manual) 7, Eosinophils % (Manual) 0, Basophils % (Manual) 0, Band Neutrophils 0, Platelet Estimate Adequate, Platelet Morphology Normal, Anisocytosis 1+, Sodium Level 132L, Potassium Level 4.3, Chloride Level 99, Carbon Dioxide Level 27, Anion Gap 6, Blood Urea Nitrogen 10, Creatinine 1.1, Estimat Glomerular Filtration Rate > 60, Glucose Level 99, Calcium Level 8.0L, Phosphorus Level 3.0, Magnesium Level 1.8, Vitamin B12 Level 1177H, Folate 9.5 Height (Feet): 5 Height (Inches): 10.00 Weight (Pounds): 132 Objective General Appearance: no apparent distress, thin, resting in bed HEENT: normocephalic, atraumatic Neck: non-tender, supple, normal inspection Respiratory/Chest: lungs clear, normal breath sounds, no respiratory distress, no accessory muscle use Cardiovascular/Chest: normal rate, regular rhythm, no gallop/murmur Abdomen: soft, no organomegaly Extremities: other - severe contractures Skin Exam: normal pigmentation Neurologic: motor weakness Musculoskeletal: atrophy Assessment/Plan Assessment/Plan: #COVID-19 infection - #Respiratory alkalosis - on ABG Fever with decreasing WBC count. Still hemodynamically stable. No respiratory distress. - Blood and urine cultures - CXR - Exchange Gregory catheter - Per ID, broadening abx to Vanc/Zosyn - No indication for dexamethasone or remdesivir at this time per ID - Pulmonary consult linda Hood appreciated - ID consult linda Gold appreciated #Hyponatremia - Na 126 on admission. Continues to improve #Renal insufficiency - resolving - Nephrology consult linda James appreciated - BMP daily #UTI Fever today. - UA and urine culture - Gregory exchange - Abx per ID #HTN #Dyslipidemia - continue home meds #Hx of CVA #Nonverbal status - AUDIO VIDEO TECH sarah Stout spent 40 minutes on this patient's case, and 24 minutes was dedicated to counseling and/or care coordination with RN, case sealer, consulting MD team regarding new fever, infectious workup, antibiotic selection, patient's respiratory status, nutrition status. Maximiliano Pacheco M.D. May 09, 2020 10:44
--- NOTE | 2020-05-09 11:00 | NUR ---
NURSE NOTES: Pt has fever 101.3. per Dr. Viera, JONATHAN toth and reinsert a new one. upon D/C noted abscess at the end of the shaft. Informed Bairon Viera who put Dr Brown on the case to assess.
[2020-05-09 11:16] LABS: APPEARANCE,URINE CLEAR; BILIRUBIN, URINE NEGATIVE (NEGATIVE); GLUCOSE, URINE (UA) NEGATIVE (NEGATIVE); KETONES,URINE NEGATIVE (NEGATIVE); LEUKOCYTE ESTERASE ,URINE 1+ (NEGATIVE); NITRITE,URINE NEGATIVE (NEGATIVE); PH,URINE 5 (4.5-8.0); PROTEIN,URINE 1+ (NEGATIVE); UROBILINOGEN,URINE NORMAL MG/DL (0.0-1.0)
[2020-05-09 11:29] LABS: COLOR,URINE YELLOW
[2020-05-09 12:00] VITALS: BP 119/69
[2020-05-09] MEDS ORDERED: FERROUS SU300 MG/5 M ORAL (13:55)
[2020-05-09] MEDS ORDERED: ATORVASTATIN CA80 MG ORAL (13:55)
[2020-05-09] MEDS ORDERED: ACETAMINOPHEN325 M1 ORAL (13:55)
[2020-05-09] MEDS ORDERED: DIPHENHYDRAMINE25 M1 ORAL (13:56)
--- NOTE | 2020-05-09 14:05 | NUR ---
Speech Pathology Note (Bedside Dysphagia Evaluation) Brief Note: Mr. Kovacs is a 64 year old male admitted from [facility] on 05/07/2020 for hyponatremia 126 and positive COVID 19. Pt's diet at senior care home was pureed and nectar thick liquid. PO intake was not clear. Hospital course, Pt is currently NPO and hyponatremia was corrected and currently 132. His white count is low from 4.6k to 3.0 at this time. He has low fever 100.2. BP is stable. Spo2 is within functional range on room air. He has large amount of stool via KUB that has been medically treated. CXR is no evidence of acute cardiopulmonary process. Findings: Mr. Kovacs is alert. He has good eye contact and shift. Oral exam was difficult to perform due to oral apraxia and COVID 19 with mask requirement for this examiner. Given him, apple sauce via TSF x 2, he was able to tolerate without s.s of aspiration. Given him nectar thick liquid via a straw, he tolerated without s.s of aspiration. Given him thin liquid, he coughed with obvious s.s of aspiration. Interpretation: 1. Oropharyngeal Dysphagia with aspiration signs on thin liquid Plan: 1. Pureed and [place] thick liquid -Aspiration precaution Kelechi Luna
[2020-05-09 16:00] VITALS: BP 115/65
--- NOTE | 2020-05-09 16:44 | Diagnostic Imaging Report ---
Indication: Reason For Exam: COUGH Technique: Single AP view of the chest. Comparison: Chest radiograph dated 05/07/2020 and 05/08/2020 Findings: Examination is limited due to overlying right arm shadow. The cardiomediastinal silhouette is unchanged in appearance. No new airspace consolidation. No new pleural effusion or pneumothorax. Redemonstration of right rib deformities. IMPRESSION: Limited examination due to overlying arm shadows. Within these limitations, no definite new airspace consolidation.
--- NOTE | 2020-05-09 18:48 | Surgery Progress Note ---
Surgery Progress Note Subjective Additional Comments febrile HD stable penile lesion identified Objective Last 24 Hour Vital Signs Date Time Temp Pulse Resp B/P (MAP) Pulse Ox O2 Delivery O2 Flow Rate FiO2 05/09/20 16:00 99.7 64 18 115/65 (82) 97 05/09/20 16:00 71 05/09/20 12:00 100.2 71 20 119/69 (86) 96 05/09/20 12:00 69 05/09/20 11:33 100.9 05/09/20 09:00 Room Air 05/09/20 08:00 98.0 76 18 125/72 (89) 97 05/09/20 08:00 78 05/09/20 04:00 75 05/09/20 04:00 97.8 74 18 122/74 (90) 98 05/09/20 00:00 79 05/08/20 23:55 98.2 69 20 131/70 (90) 96 05/08/20 22:33 73 05/08/20 22:12 Room Air 05/08/20 20:00 98.6 70 20 126/65 (85) 98 I&O Intake and Output 05/08/20 05/09/20 19:00 07:00 Output Total 1350 ml Balance -1350 ml Output Urine Total 1350 ml Dressing: saturated Cardiovascular: RSR Respiratory: decreased breath sounds Abdomen: soft, non-tender, present bowel sounds Extremities: no tenderness, no cyanosis Laboratory Tests Test 05/09/20 06:30 05/09/20 10:00 05/09/20 10:35 White Blood Count 3.0 K/UL (4.8-10.8) L Red Blood Count 3.90 M/UL (4.70-6.10) L Hemoglobin 11.1 G/DL (14.2-18.0) L Hematocrit 35.4 % (42.0-52.0) L Mean Corpuscular Volume 91 FL (80-99) Mean Corpuscular Hemoglobin 28.5 PG (27.0-31.0) Mean Corpuscular Hemoglobin Concent 31.3 G/DL (32.0-36.0) L Red Cell Distribution Width 13.4 % (11.6-14.8) Platelet Count 247 K/UL (150-450) Mean Platelet Volume 4.8 FL (6.5-10.1) L Neutrophils (%) (Auto) % (45.0-75.0) Lymphocytes (%) (Auto) % (20.0-45.0) Monocytes (%) (Auto) % (1.0-10.0) Eosinophils (%) (Auto) % (0.0-3.0) Basophils (%) (Auto) % (0.0-2.0) Differential Total Cells Counted 100 Neutrophils % (Manual) 73 % (45-75) Lymphocytes % (Manual) 20 % (20-45) Monocytes % (Manual) 7 % (1-10) Eosinophils % (Manual) 0 % (0-3) Basophils % (Manual) 0 % (0-2) Band Neutrophils 0 % (0-8) Platelet Estimate Adequate Platelet Morphology Normal Anisocytosis 1+ Sodium Level 132 MMOL/L (136-145) L Potassium Level 4.3 MMOL/L (3.5-5.1) Chloride Level 99 MMOL/L (98-107) Carbon Dioxide Level 27 MMOL/L (21-32) Anion Gap 6 mmol/L (5-15) Blood Urea Nitrogen 10 mg/dL (7-18) Creatinine 1.1 MG/DL (0.55-1.30) Estimat Glomerular Filtration Rate > 60 mL/min (>60) Glucose Level 99 MG/DL (74-106) Calcium Level 8.0 MG/DL (8.5-10.1) L Phosphorus Level 3.0 MG/DL (2.5-4.9) Magnesium Level 1.8 MG/DL (1.8-2.4) Vitamin B12 Level 1177 PG/ML (193-986) H Folate 9.5 NG/ML (8.6-58.9) Stool Occult Blood Negative (NEGATIVE) Urine Color Yellow Urine Appearance Clear Urine pH 5 (4.5-8.0) Urine Specific [place] 1.015 (1.005-1.035) Urine Protein 1+ (NEGATIVE) H Urine Glucose (UA) Negative (NEGATIVE) Urine Ketones Negative (NEGATIVE) Urine Blood 5+ (NEGATIVE) H Urine Nitrite Negative (NEGATIVE) Urine Bilirubin Negative (NEGATIVE) Urine Urobilinogen Normal MG/DL (0.0-1.0) Urine Leukocyte Esterase 1+ (NEGATIVE) H Urine RBC 15-20 /HPF (0 - 0) H Urine WBC 0-2 /HPF (0 - 0) Urine Squamous Epithelial Cells Occasional /LPF Urine Bacteria Occasional /HPF (NONE) Plan Problems: (1) Hyponatremia (2) UTI (urinary tract infection) (3) COVID-19 (4) Abdominal pain Assessment & Plan: KUB noted likely constipated recommend bowel regimen hold on further imaging okay for diet activity as tolerated will follow with exam and recs thank you penile soft tissue pelvic swelling. likely seroma. does not seem to be abscess. will monitor toth causing breakdown of penile meatus chronic contractures Abdomen: Nonobstructive but nonspecific bowel gas pattern. Moderate to large amount of stool. No free air. Bones: Chronic appearing deformity of the proximal right femur. Soft tissues: Normal. IMPRESSION: Nonobstructive but nonspecific bowel gas pattern. Moderate to large amount of stool. Harry Brown May 09, 2020 18:48
--- NOTE | 2020-05-09 19:01 | NUR ---
NURSE HAND-OFF REPORT: Important Events on Shift:[pt spiked fever, MD aware, toth removed and new one inserted. Passed ST eval now eating. tolerating diet well. 2 BM's] Patient Status: [in bed resting stable] Diet: [cardiac puree moist with nectar thick fluids] Pending Orders: [] Pending Results/Labs:[] Pending MD notification:[please notify Dr. Jimenez that occult blood is negative] Latest Vital Signs: Temperature 99.7 , Pulse 71 , B/P 115 /65 , Respiratory Rate 18 , O2 SAT 97 , Room Air, O2 Flow Rate . Vital Sign Comment: [] EKG Rhythm: Sinus Rhythm Rhythm change?: N MD Notified?: - MD Response: Latest Hankins Fall Score: 55 Fall Risk: High Risk Safety Measures: Call light Within Reach, Bed Alarm Zone 1, Side Rails Side Rails x3, Bed position Low and Locked. Fall Precautions: Yellow Socks Yellow Gown Door Sign Patient Fall Education Report given to [pending Rn Assignment]. Addendum: 05/09/20 at 1922 by Ana Cristina Robb RN Report given to Latrell ELIZONDO
--- NOTE | 2020-05-09 19:02 | NUR ---
NURSE NOTES: Received pt asleep; AOX0 but arousable; denies any pain; in no acute distress; noted with f/c intact and patent. Will continue to monitor.
--- NOTE | 2020-05-09 20:59 | Infectious Diseases Prog Note ---
Assessment/Plan Assessment/Plan ASSESSMENT AND PLAN: 1. gram + uti, sepsis, covid-19 infection, fevers, weakness, chest x-ray negative for pna - change to zosyn and vancomycin - f/u on cultures - monitor labs - monitor temperatures 2. Hyponatremia. Continue IV fluids per Renal and Medicine. 3. The patient is anemic. 4. Possible hyperlipidemia or dyslipidemia. 5. CVA. 6. Weakness. 7. Nonverbal. 8. Hypertension. Blood pressure treatment per primary care team. 9. Renal insufficiency. 10. Skin care per protocol. 11. The patient has no known drug allergies. 12. Social history is negative. 13. Family history is noncontributory. 14. MAR is noted. 15. Case discussed with RN. 16. Continue treatment per primary consultants. Subjective Constitutional: Reports: fever HEENT: Denies: congestion Respiratory: Denies: shortness of breath Cardiovascular: Denies: chest pain Gastrointestinal/Abdominal: Denies: nausea, vomiting, diarrhea Genitourinary: Reports: other - + toth Neurologic: Reports: weakness Psychiatric: Reports: other - NA Skin: Denies: rash Hematologic: Denies: bleeding Musculoskeletal: Denies: pain Allergies: Coded Allergies: No Known Allergies (Unverified , 05/07/20) Objective Last 24 Hour Vital Signs Date Time Temp Pulse Resp B/P (MAP) Pulse Ox O2 Delivery O2 Flow Rate FiO2 05/09/20 16:00 99.7 64 18 115/65 (82) 97 05/09/20 16:00 71 05/09/20 12:00 100.2 71 20 119/69 (86) 96 05/09/20 12:00 69 05/09/20 11:33 100.9 05/09/20 09:00 Room Air 05/09/20 08:00 98.0 76 18 125/72 (89) 97 05/09/20 08:00 78 05/09/20 04:00 75 05/09/20 04:00 97.8 74 18 122/74 (90) 98 05/09/20 00:00 79 05/08/20 23:55 98.2 69 20 131/70 (90) 96 05/08/20 22:33 73 05/08/20 22:12 Room Air Height (Feet): 5 Height (Inches): 10.00 Weight (Pounds): 132 General Appearance: no acute distress HEENT: atraumatic, anicteric, mucous membranes moist, EOMI, supple, no JVD Respiratory/Chest: lungs clear, normal breath sounds, no respiratory distress, no accessory muscle use Cardiovascular: normal rate, regular rhythm, no gallop/murmur Abdomen: normal bowel sounds, soft, non tender, no organomegaly, non distended Genitourinary: other - + toth - urine cloudy Extremities: no cyanosis Skin: no rash 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 Comparison: Chest radiograph dated 05/07/2020 and 05/08/2020 Findings: Examination is limited due to overlying right arm shadow. The cardiomediastinal silhouette is unchanged in appearance. No new airspace consolidation. No new pleural effusion or pneumothorax. Redemonstration of right rib deformities. IMPRESSION: Limited examination due to overlying arm shadows. Within these limitations, no definite new airspace consolidation. Microbiology Date/Time Source Procedure Growth Status 05/07/20 18:40 Indwelling Cath Urine Culture - Preliminary Gram Positive Cocci Resulted 05/07/20 13:20 Rectum VRE Culture - Final NO VANCOMYCIN RESISTANT ENTEROCOCCUS ... Complete 05/07/20 13:20 Rectum Received 05/07/20 13:00 Nasal Nares - Final Complete 05/07/20 13:00 Nasal Nares - Final Complete 05/07/20 12:45 Nasopharynx SARS-CoV-2 RdRp Gene Assay - Final Complete Laboratory Tests Test 05/09/20 06:30 05/09/20 10:00 05/09/20 10:35 White Blood Count 3.0 K/UL (4.8-10.8) L Red Blood Count 3.90 M/UL (4.70-6.10) L Hemoglobin 11.1 G/DL (14.2-18.0) L Hematocrit 35.4 % (42.0-52.0) L Mean Corpuscular Volume 91 FL (80-99) Mean Corpuscular Hemoglobin 28.5 PG (27.0-31.0) Mean Corpuscular Hemoglobin Concent 31.3 G/DL (32.0-36.0) L Red Cell Distribution Width 13.4 % (11.6-14.8) Platelet Count 247 K/UL (150-450) Mean Platelet Volume 4.8 FL (6.5-10.1) L Neutrophils (%) (Auto) % (45.0-75.0) Lymphocytes (%) (Auto) % (20.0-45.0) Monocytes (%) (Auto) % (1.0-10.0) Eosinophils (%) (Auto) % (0.0-3.0) Basophils (%) (Auto) % (0.0-2.0) Differential Total Cells Counted 100 Neutrophils % (Manual) 73 % (45-75) Lymphocytes % (Manual) 20 % (20-45) Monocytes % (Manual) 7 % (1-10) Eosinophils % (Manual) 0 % (0-3) Basophils % (Manual) 0 % (0-2) Band Neutrophils 0 % (0-8) Platelet Estimate Adequate Platelet Morphology Normal Anisocytosis 1+ Sodium Level 132 MMOL/L (136-145) L Potassium Level 4.3 MMOL/L (3.5-5.1) Chloride Level 99 MMOL/L (98-107) Carbon Dioxide Level 27 MMOL/L (21-32) Anion Gap 6 mmol/L (5-15) Blood Urea Nitrogen 10 mg/dL (7-18) Creatinine 1.1 MG/DL (0.55-1.30) Estimat Glomerular Filtration Rate > 60 mL/min (>60) Glucose Level 99 MG/DL (74-106) Calcium Level 8.0 MG/DL (8.5-10.1) L Phosphorus Level 3.0 MG/DL (2.5-4.9) Magnesium Level 1.8 MG/DL (1.8-2.4) Vitamin B12 Level 1177 PG/ML (193-986) H Folate 9.5 NG/ML (8.6-58.9) Stool Occult Blood Negative (NEGATIVE) Urine Color Yellow Urine Appearance Clear Urine pH 5 (4.5-8.0) Urine Specific [place] 1.015 (1.005-1.035) Urine Protein 1+ (NEGATIVE) H Urine Glucose (UA) Negative (NEGATIVE) Urine Ketones Negative (NEGATIVE) Urine Blood 5+ (NEGATIVE) H Urine Nitrite Negative (NEGATIVE) Urine Bilirubin Negative (NEGATIVE) Urine Urobilinogen Normal MG/DL (0.0-1.0) Urine Leukocyte Esterase 1+ (NEGATIVE) H Urine RBC 15-20 /HPF (0 - 0) H Urine WBC 0-2 /HPF (0 - 0) Urine Squamous Epithelial Cells Occasional /LPF Urine Bacteria Occasional /HPF (NONE) Current Medications Medications (Trade) Dose Ordered Sig/Luis E Route PRN Reason Start Time Stop Time Status Last Admin Dose Admin Acetaminophen (Tylenol) 325 mg Q6H PRN RECTAL Temp >100.5 05/09/20 10:45 06/08/20 10:44 05/09/20 11:03 Atorvastatin Calcium (Lipitor) 80 mg BEDTIME ORAL 05/07/20 21:00 08/05/20 20:59 Barium Sulfate (Varibar Honey) 250 ml NOW PRN MC RAD 05/07/20 22:00 05/10/20 21:52 Barium Sulfate (Varibar Radnor) 240 ml NOW PRN MC RAD 05/07/20 22:00 05/10/20 21:52 Barium Sulfate (Varibar Pudding) 230 ml NOW PRN MC RAD 05/07/20 22:00 05/10/20 21:52 Barium Sulfate (Varibar Thin Liquid powder) 148 gm NOW PRN MC RAD 05/07/20 22:00 05/10/20 21:52 Bisacodyl (Dulcolax) 10 mg DAILYPRN PRN RECTAL Constipation 05/07/20 15:45 08/05/20 15:44 Bupropion HCl (Wellbutrin SR) 150 mg DAILY ORAL 05/08/20 11:00 06/07/20 10:59 Ceftriaxone Sodium 1 gm/ Dextrose 50 ml @ 100 mls/hr Q24H IVPB 05/07/20 20:00 05/14/20 19:59 05/08/20 20:00 Dextrose (Dextrose 50%) 25 ml Q30M PRN IV Hypoglycemia 05/07/20 15:45 08/05/20 15:44 Dextrose (Dextrose 50%) 50 ml Q30M PRN IV Hypoglycemia 05/07/20 15:45 08/05/20 15:44 Docusate Sodium (Colace) 100 mg TWICE A DAY ORAL 05/08/20 09:00 06/07/20 08:59 05/09/20 17:48 Heparin Sodium (Porcine) (Heparin 5000 units/ml) 5,000 units EVERY 12 HOURS SUBQ 05/08/20 09:00 06/22/20 08:59 05/09/20 09:20 Pantoprazole (Protonix) 40 mg DAILY IV 05/08/20 09:00 06/07/20 08:59 05/09/20 09:19 Polyethylene Glycol (Miralax) 17 gm BEDTIME ORAL 05/08/20 21:00 06/07/20 20:59 Potassium Chloride 10 meq/ Dextrose/Sodium Chloride 1,005 ml @ 75 mls/hr [id number] IV 05/08/20 08:00 06/07/20 07:59 05/09/20 05:57 Nickolas Goldstein MD May 09, 2020 20:59
[2020-05-09] MEDS: Miralax 17gm pkt ORAL SCH (21:00)
[2020-05-09] MEDS: Atorvastatin 80mg tab ORAL SCH (22:21)
[2020-05-09] MEDS: Piperacillin/Tazobactam 3.375 GM in D5W 110 ML IVPB SCH (22:23)
[2020-05-10] VITALS: BP 132/73
[2020-05-10] MEDS: Vancomycin 750mg/D5W 275ml IVPB SCH ×4 (00:58→14:09)
[2020-05-10 04:00] VITALS: BP 126/70
[2020-05-10] MEDS: Piperacillin/Tazobactam 3.375 GM in D5W 110 ML IVPB SCH ×3 (06:17→23:01)
[2020-05-10 07:13] LABS: HEMATOCRIT 33.1 % (42.0-52.0); HEMOGLOBIN 10.4 G/DL (14.2-18.0); MEAN CORPUSCULAR VOLUME 90 FL (80-99); PLATELET COUNT 202 K/UL (150-450); RED BLOOD COUNT 3.66 M/UL (4.70-6.10); RED CELL DISTRIBUTION WIDTH 13.4 % (11.6-14.8); WHITE BLOOD COUNT 2.5 K/UL (4.8-10.8)
[2020-05-10 07:29] LABS: PHOSPHORUS 2.4 MG/DL (2.5-4.9)
--- NOTE | 2020-05-10 07:30 | NUR ---
NURSE HAND-OFF REPORT: Important Events on Shift: Temp 100.8 around 0000; stabilized with cooling measures and went down to 99 F Patient Status: AOX0 Diet: CARDIAC PUREE MOIST NECTAR THICK LIQUIDS Pending Orders: N/A Pending Results/Labs: morning labs Pending MD notification:N/A Latest Vital Signs: Temperature 99.0 , Pulse 65 , B/P 126 /70 , Respiratory Rate 20 , O2 SAT 95 , Room Air, O2 Flow Rate . Vital Sign Comment: STABLE EKG Rhythm: Sinus Rhythm Rhythm change?: N MD Notified?: - MD Response: Latest Hankins Fall Score: 55 Fall Risk: High Risk Safety Measures: Call light Within Reach, Bed Alarm Zone 1, Side Rails Side Rails x3, Bed position Low and Locked. Fall Precautions: Yellow Socks Yellow Gown Door Sign Patient Fall Education Report given to CARO Guardado[].
[2020-05-10 07:39] LABS: ALANINE AMINOTRANSFERASE 24 U/L (12-78); ALBUMIN 2.1 G/DL (3.4-5.0); ALBUMIN/GLOBULIN RATIO 0.5 (1.0-2.7); ALKALINE PHOSPHATASE 56 U/L (46-116); ANION GAP 8 mmol/L (5-15); ASPARTATE AMINO TRANSFERASE 29 U/L (15-37); BILIRUBIN,TOTAL 0.2 MG/DL (0.2-1.0); BLOOD UREA NITROGEN 8 mg/dL (7-18); CALCIUM 8.1 MG/DL (8.5-10.1); CARBON DIOXIDE 25 MMOL/L (21-32); CHLORIDE 100 MMOL/L (98-107); SODIUM 133 MMOL/L (136-145)
[2020-05-10 07:46] LABS: % IRON SATURATION 6 % (15-50); IRON 12 ug/dL (50-175); TOTAL IRON BINDING CAPACITY 207 ug/dL (250-450)
--- NOTE | 2020-05-10 07:47 | NUR ---
NURSE NOTES: Received report from Nai/RN. Pt is awake, in bed lying semi-fowlers. On room air, no distress or SOB noted. IV on left FA 20G running D5NS w Kcl @75ml/hr. Gregory catheter draining to gravity. Bed in the lowest position and locked. Call light within reach, side rails up X3. Will continue plan of care.
[2020-05-10 08:00] VITALS: BP 115/59
--- NOTE | 2020-05-10 09:21 | General Progress Note ---
Subjective ROS Limited/Unobtainable: No Allergies: Coded Allergies: No Known Allergies (Unverified , 05/07/20) Objective Last 24 Hour Vital Signs Date Time Temp Pulse Resp B/P (MAP) Pulse Ox O2 Delivery O2 Flow Rate FiO2 05/10/20 08:00 96.8 77 20 115/59 (77) 98 05/10/20 04:00 74 05/10/20 04:00 99.0 65 20 126/70 (88) 95 05/10/20 01:00 99.9 05/10/20 00:00 100.8 64 18 132/73 (92) 94 79 05/10/20 00:00 75 05/09/20 21:00 Room Air 05/09/20 20:00 79 05/09/20 16:00 99.7 64 18 115/65 (82) 97 05/09/20 16:00 71 05/09/20 12:00 100.2 71 20 119/69 (86) 96 05/09/20 12:00 69 05/09/20 11:33 100.9 Intake and Output 05/09/20 05/10/20 19:00 07:00 Intake Total 120 ml Output Total 30 ml 600 ml Balance 90 ml -600 ml Intake Oral 120 ml Output Urine Total 30 ml 600 ml Laboratory Tests 05/09/20 10:00: Stool Occult Blood Negative 05/09/20 10:35: Urine Color Yellow, Urine Appearance Clear, Urine pH 5, Urine Specific [place] 1.015, Urine Protein 1+H, Urine Glucose (UA) Negative, Urine Ketones Negative, Urine Blood 5+H, Urine Nitrite Negative, Urine Bilirubin Negative, Urine Urobilinogen Normal, Urine Leukocyte Esterase 1+H, Urine RBC 15-20H, Urine WBC 0-2, Urine Squamous Epithelial Cells Occasional, Urine Bacteria Occasional 05/10/20 06:35: White Blood Count 2.5L, Red Blood Count 3.66L, Hemoglobin 10.4L, Hematocrit 33.1L, Mean Corpuscular Volume 90, Mean Corpuscular Hemoglobin 28.3, Mean Corpuscular Hemoglobin Concent 31.4L, Red Cell Distribution Width 13.4, Platelet Count 202, Mean Platelet Volume 4.7L, Neutrophils (%) (Auto) , Lymphocytes (%) (Auto) , Monocytes (%) (Auto) , Eosinophils (%) (Auto) , Basophils (%) (Auto) , Neutrophils % (Manual) [Pending], Lymphocytes % (Manual) [Pending], Platelet Estimate [Pending], Platelet Morphology [Pending], Sodium Level 133L, Potassium Level 4.0, Chloride Level 100, Carbon Dioxide Level 25, Anion Gap 8, Blood Urea Nitrogen 8, Creatinine 1.0, Estimat Glomerular Filtration Rate > 60, Glucose Level 115H, Calcium Level 8.1L, Phosphorus Level 2.4L, Magnesium Level 1.8, Iron Level 12L, Total Iron Binding Capacity 207L, Percent Iron Saturation 6L, Unsaturated Iron Binding 195, Total Bilirubin 0.2, Aspartate Amino Transf (AST/SGOT) 29, Alanine Aminotransferase (ALT/SGPT) 24, Alkaline Phosphatase 56, Total Protein 6.1L, Albumin 2.1L, Globulin 4.0, Albumin/Globulin Ratio 0.5L Height (Feet): 5 Height (Inches): 10.00 Weight (Pounds): 132 General Appearance: no apparent distress EENT: normal ENT inspection Neck: supple Cardiovascular: normal rate Respiratory/Chest: decreased breath sounds Abdomen: normal bowel sounds, non tender, soft Extremities: non-tender Assessment/Plan Assessment/Plan: 1. Pneumonia. 2. Hyponatremia. 3. UTI. 4. Constipation. 5. Normocytic anemia. 6. History of CVA. 7. History of Covid 8. History of hypercholesteremia. 9. History of BPH. had BM bowel regimen stable H&H stool ob neg passed swallow eval calorie count iv iron repeat labs will fu Alejandro Jimenez MD May 10, 2020 09:21
[2020-05-10] MEDS: Docusate 100mg cap ORAL SCH ×2 (09:34→17:58)
[2020-05-10] MEDS: BuPROPion SR 150mg tab ORAL SCH (09:34)
[2020-05-10] MEDS: Pantoprazole Inj IV SCH (09:35)
[2020-05-10] MEDS: Heparin 5000 units/ml inj SUBQ SCH ×2 (09:36→22:54)
--- NOTE | 2020-05-10 10:26 | Pulmonology Progress Note ---
Subjective ROS Limited/Unobtainable: No Interval Events: None new Constitutional: Reports: fever HEENT: Repors: no symptoms Respiratory: Reports: no symptoms Cardiovascular: Reports: no symptoms Gastrointestinal/Abdominal: Denies: nausea, vomiting, diarrhea Psychiatric: Reports: other - NA Skin: Denies: rash Musculoskeletal: Denies: pain Allergies: Coded Allergies: No Known Allergies (Unverified , 05/07/20) Objective Last 24 Hour Vital Signs Date Time Temp Pulse Resp B/P (MAP) Pulse Ox O2 Delivery O2 Flow Rate FiO2 05/10/20 08:00 63 05/10/20 08:00 96.8 77 20 115/59 (77) 98 05/10/20 04:00 74 05/10/20 04:00 99.0 65 20 126/70 (88) 95 05/10/20 01:00 99.9 05/10/20 00:00 100.8 64 18 132/73 (92) 94 79 05/10/20 00:00 75 05/09/20 21:00 Room Air 05/09/20 20:00 79 05/09/20 16:00 99.7 64 18 115/65 (82) 97 05/09/20 16:00 71 05/09/20 12:00 100.2 71 20 119/69 (86) 96 05/09/20 12:00 69 05/09/20 11:33 100.9 Intake and Output 05/09/20 05/10/20 19:00 07:00 Intake Total 120 ml Output Total 30 ml 600 ml Balance 90 ml -600 ml Intake Oral 120 ml Output Urine Total 30 ml 600 ml General Appearance: no acute distress HEENT: normocephalic Respiratory: chest wall non-tender, lungs clear Cardiovascular: normal peripheral pulses Abdomen: normal bowel sounds Microbiology Date/Time Source Procedure Growth Status 05/07/20 18:40 Indwelling Cath Urine Culture - Final Enterococcus Faecalis Complete 05/07/20 13:20 Rectum VRE Culture - Final NO VANCOMYCIN RESISTANT ENTEROCOCCUS ... Complete 05/07/20 13:20 Rectum Received 05/07/20 13:20 Nasal Nares MRSA Culture - Final NO METHICILLIN RESISTANT STAPH AUREUS... Complete 05/07/20 13:00 Nasal Nares - Final Complete 05/07/20 13:00 Nasal Nares - Final Complete 05/07/20 13:00 Blood Blood Culture - Preliminary NO GROWTH AFTER 48 HOURS Resulted 05/07/20 12:45 Nasopharynx SARS-CoV-2 RdRp Gene Assay - Final Complete 05/07/20 12:45 Blood Blood Culture - Preliminary NO GROWTH AFTER 48 HOURS Resulted Laboratory Tests 05/09/20 10:35: Urine Color Yellow, Urine Appearance Clear, Urine pH 5, Urine Specific [place] 1.015, Urine Protein 1+H, Urine Glucose (UA) Negative, Urine Ketones Negative, Urine Blood 5+H, Urine Nitrite Negative, Urine Bilirubin Negative, Urine Urobilinogen Normal, Urine Leukocyte Esterase 1+H, Urine RBC 15-20H, Urine WBC 0-2, Urine Squamous Epithelial Cells Occasional, Urine Bacteria Occasional 05/10/20 06:35: White Blood Count 2.5L, Red Blood Count 3.66L, Hemoglobin 10.4L, Hematocrit 33.1L, Mean Corpuscular Volume 90, Mean Corpuscular Hemoglobin 28.3, Mean Corpuscular Hemoglobin Concent 31.4L, Red Cell Distribution Width 13.4, Platelet Count 202, Mean Platelet Volume 4.7L, Neutrophils (%) (Auto) , Lymphocytes (%) (Auto) , Monocytes (%) (Auto) , Eosinophils (%) (Auto) , Basophils (%) (Auto) , Differential Total Cells Counted 100, Neutrophils % (Manual) 63, Lymphocytes % (Manual) 28, Monocytes % (Manual) 9, Eosinophils % (Manual) 0, Basophils % (Manual) 0, Band Neutrophils 0, Platelet Estimate Adequate, Platelet Morphology Normal, Hypochromasia 1+, Sodium Level 133L, Potassium Level 4.0, Chloride Level 100, Carbon Dioxide Level 25, Anion Gap 8, Blood Urea Nitrogen 8, Creatinine 1.0, Estimat Glomerular Filtration Rate > 60, Glucose Level 115H, Calcium Level 8.1L, Phosphorus Level 2.4L, Magnesium Level 1.8, Iron Level 12L, Total Iron Binding Capacity 207L, Percent Iron Saturation 6L, Unsaturated Iron Binding 195, Total Bilirubin 0.2, Aspartate Amino Transf (AST/SGOT) 29, Alanine Aminotransferase (ALT/SGPT) 24, Alkaline Phosphatase 56, Total Protein 6.1L, Albumin 2.1L, Globulin 4.0, Albumin/Globulin Ratio 0.5L Current Medications Medications (Trade) Dose Ordered Sig/Luis E Route PRN Reason Start Time Stop Time Status Last Admin Dose Admin Acetaminophen (Tylenol) 325 mg Q6H PRN RECTAL Temp >100.5 05/09/20 10:45 06/08/20 10:44 05/09/20 11:03 Acetaminophen (Tylenol) 650 mg Q6H PRN ORAL Temp >100.5 05/10/20 00:15 06/09/20 00:14 Atorvastatin Calcium (Lipitor) 80 mg BEDTIME ORAL 05/07/20 21:00 08/05/20 20:59 05/09/20 22:21 Barium Sulfate (Varibar Honey) 250 ml NOW PRN MC RAD 05/07/20 22:00 05/10/20 21:52 Barium Sulfate (Varibar [place]) 240 ml NOW PRN RAD 05/07/20 22:00 05/10/20 21:52 Barium Sulfate (Varibar Pudding) 230 ml NOW PRN RAD 05/07/20 22:00 05/10/20 21:52 Barium Sulfate (Varibar Thin Liquid powder) 148 gm NOW PRN RAD 05/07/20 22:00 05/10/20 21:52 Bisacodyl (Dulcolax) 10 mg DAILYPRN PRN RECTAL Constipation 05/07/20 15:45 08/05/20 15:44 Bupropion HCl (Wellbutrin SR) 150 mg DAILY ORAL 05/08/20 11:00 06/07/20 10:59 05/10/20 09:34 Dextrose (Dextrose 50%) 25 ml Q30M PRN IV Hypoglycemia 05/07/20 15:45 08/05/20 15:44 Dextrose (Dextrose 50%) 50 ml Q30M PRN IV Hypoglycemia 05/07/20 15:45 08/05/20 15:44 Docusate Sodium (Colace) 100 mg TWICE A DAY ORAL 05/08/20 09:00 06/07/20 08:59 05/10/20 09:34 Heparin Sodium (Porcine) (Heparin 5000 units/ml) 5,000 units EVERY 12 HOURS SUBQ 05/08/20 09:00 06/22/20 08:59 05/10/20 09:36 Iron Sucrose 100 mg/Sodium Chloride 60 ml @ 240 mls/hr BEDTIME IVPB 05/10/20 21:00 05/14/20 21:14 Pantoprazole (Protonix) 40 mg DAILY IV 05/08/20 09:00 06/07/20 08:59 05/10/20 09:35 Piperacillin Sod/ Tazobactam Sod 3.375 gm/Dextrose 110 ml @ 27.5 mls/hr EVERY 8 HOURS IVPB 05/09/20 22:00 05/14/20 21:59 05/10/20 06:17 Polyethylene Glycol (Miralax) 17 gm BEDTIME ORAL 05/08/20 21:00 06/07/20 20:59 Potassium Chloride 10 meq/ Dextrose/Sodium Chloride 1,005 ml @ 75 mls/hr [id number] IV 05/08/20 08:00 06/07/20 07:59 05/10/20 00:12 Vancomycin HCl (Vanco pharmacy to dose) 1 ea DAILY PRN MISC Per rx protocol 05/09/20 21:00 06/08/20 20:59 Vancomycin HCl 750 mg/Dextrose 275 ml @ 183.333 mls/hr Q12HR@0100,1300 IVPB 05/10/20 01:00 05/15/20 00:59 05/10/20 00:58 Assessment/Plan Assessment/Plan IMPRESSION: 1. COVID-19 pneumonia. 2. Hyponatremia. Na now 133 3. CVA. 4. Hyperlipidemia. DISCUSSION: The patient is saturating well on room air. I would recommend holding off on further therapies for COVID-19 pneumonia as he is not hypoxic. 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 Isiah Coffey Omar Syed MD May 10, 2020 10:25
--- NOTE | 2020-05-10 10:27 | General Progress Note ---
Subjective ROS Limited/Unobtainable: Yes - Patient nonverbal at baseline Allergies: Coded Allergies: No Known Allergies (Unverified , 05/07/20) Subjective No acute events overnight. Patient nonverbal at baseline does not follow any commands or answer any questions. T-max 100 point 8 at night. No new complaints Objective Last 24 Hour Vital Signs Date Time Temp Pulse Resp B/P (MAP) Pulse Ox O2 Delivery O2 Flow Rate FiO2 05/10/20 08:00 63 05/10/20 08:00 96.8 77 20 115/59 (77) 98 05/10/20 04:00 74 05/10/20 04:00 99.0 65 20 126/70 (88) 95 05/10/20 01:00 99.9 05/10/20 00:00 100.8 64 18 132/73 (92) 94 79 05/10/20 00:00 75 05/09/20 21:00 Room Air 05/09/20 20:00 79 05/09/20 16:00 99.7 64 18 115/65 (82) 97 05/09/20 16:00 71 05/09/20 12:00 100.2 71 20 119/69 (86) 96 05/09/20 12:00 69 05/09/20 11:33 100.9 Intake and Output 05/09/20 05/10/20 19:00 07:00 Intake Total 120 ml Output Total 30 ml 600 ml Balance 90 ml -600 ml Intake Oral 120 ml Output Urine Total 30 ml 600 ml Laboratory Tests 05/09/20 10:35: Urine Color Yellow, Urine Appearance Clear, Urine pH 5, Urine Specific [place] 1.015, Urine Protein 1+H, Urine Glucose (UA) Negative, Urine Ketones Negative, Urine Blood 5+H, Urine Nitrite Negative, Urine Bilirubin Negative, Urine Urobilinogen Normal, Urine Leukocyte Esterase 1+H, Urine RBC 15-20H, Urine WBC 0-2, Urine Squamous Epithelial Cells Occasional, Urine Bacteria Occasional 05/10/20 06:35: White Blood Count 2.5L, Red Blood Count 3.66L, Hemoglobin 10.4L, Hematocrit 33.1L, Mean Corpuscular Volume 90, Mean Corpuscular Hemoglobin 28.3, Mean Corpuscular Hemoglobin Concent 31.4L, Red Cell Distribution Width 13.4, Platelet Count 202, Mean Platelet Volume 4.7L, Neutrophils (%) (Auto) , Lymphocytes (%) (Auto) , Monocytes (%) (Auto) , Eosinophils (%) (Auto) , Basophils (%) (Auto) , Differential Total Cells Counted 100, Neutrophils % (Manual) 63, Lymphocytes % (Manual) 28, Monocytes % (Manual) 9, Eosinophils % (Manual) 0, Basophils % (Manual) 0, Band Neutrophils 0, Platelet Estimate Adequate, Platelet Morphology Normal, Hypochromasia 1+, Sodium Level 133L, Potassium Level 4.0, Chloride Level 100, Carbon Dioxide Level 25, Anion Gap 8, Blood Urea Nitrogen 8, Creatinine 1.0, Estimat Glomerular Filtration Rate > 60, Glucose Level 115H, Calcium Level 8.1L, Phosphorus Level 2.4L, Magnesium Level 1.8, Iron Level 12L, Total Iron Binding Capacity 207L, Percent Iron Saturation 6L, Unsaturated Iron Binding 195, Total Bilirubin 0.2, Aspartate Amino Transf (AST/SGOT) 29, Alanine Aminotransferase (ALT/SGPT) 24, Alkaline Phosphatase 56, Total Protein 6.1L, Albumin 2.1L, Globulin 4.0, Albumin/Globulin Ratio 0.5L Height (Feet): 5 Height (Inches): 10.00 Weight (Pounds): 132 General Appearance: no apparent distress, alert EENT: PERRL/EOMI Neck: non-tender Cardiovascular: normal rate, regular rhythm, no JVD Respiratory/Chest: lungs clear, normal breath sounds Abdomen: non tender, soft Extremities: normal range of motion Edema: no edema noted Arm (L), no edema noted Arm (R), no edema noted Leg (L), no edema noted Leg (R), no edema noted Pedal (L), no edema noted Pedal (R), no edema noted Generalized 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 Kovacs is a 64-year-old male past medical history of hypertension, CVA nonverbal at baseline, renal insufficiency who was brought in from [facility] for hyponatremia. He recently tested positive for COVID-19. Patient is nonverbal and unable to provide any history. # Hypovolemic hyponatremia 2/2 poor oral intakeimproving # COVID-19 infection # UTI # Respiratory alkalosis - on ABG # Leukopenia likely secondary to viral infection # Normocytic anemia likely secondary to ACD # DURGA 2/2 prerenal azotemia # Essential hypertension # ?Chronic encephalopathy # Hyperlipidemia # History of CVA # Nonverbal P: Hemodynamically stable Saturating well on room air, monitor for increased O2 support No indications of dexamethasone, remdesivir Continue broad-spectrum coverage with Vanco/Zosyn per ID Urine cultures positive for Enterococcus, defer antibiotics to ID T-max 100.8 earlier this morning Leukopenia worsening continue to monitor CBC IVF Monitor sodium levels, improving Monitor renal function Monitor electrolytes replace as needed Continue home statin Continue home Wellbutrin - Pulmonary consult Dr. Gann, recs appreciated - ID consult Dr. Hewitt, recs appreciated Consult Dr. Haji, heme-onc recs appreciated - Nephrology consult Dr. Aranda, recs appreciated CM CODE: Full Diet: Cardiac DVT: Heparin 5000 BUD Dispo: pending improvement of covid, UTI infection, DC back to SNF Time spent on this encounter was 46 minutes which included 24 minutes of counseling and care coordination. I discussed with the nurse at bedside. Time of note may not reflect time patient was seen. Marcell Varma D.O May 10, 2020 10:27
[2020-05-10 11:20] LABS: HEMATOCRIT 34.4 % (42.0-52.0); HEMOGLOBIN 10.7 G/DL (14.2-18.0); MEAN CORPUSCULAR VOLUME 91 FL (80-99); PLATELET COUNT 208 K/UL (150-450); RED BLOOD COUNT 3.79 M/UL (4.70-6.10); RED CELL DISTRIBUTION WIDTH 13.5 % (11.6-14.8); WHITE BLOOD COUNT 2.4 K/UL (4.8-10.8)
[2020-05-10 12:00] VITALS: BP 118/64
--- NOTE | 2020-05-10 12:33 | NUR ---
DISCHARGE PLANNING PATIENT ACCEPTED BACK TO [facility] BED 16B
--- NOTE | 2020-05-10 13:17 | Nephrology Progress Note ---
Assessment/Plan Plan #Hyponatremia- hypovolumic #COVID infection #UTI #HLD #HTN #h/o CVA #nonverbal #failure to thrive - IVF on D5NS - ID eval - on ceftriaxone - follow cx - monitor sodium - GI eval - swallow eval - pulmonary eval - monitor UOP - replete lytes prn Time spent 65min Subjective ROS Limited/Unobtainable: Yes Subjective sodium is slowly uptrending with hydration afebrile vitals stable Objective Objective Last 24 Hour Vital Signs Date Time Temp Pulse Resp B/P (MAP) Pulse Ox O2 Delivery O2 Flow Rate FiO2 05/10/20 12:00 96.8 71 21 118/64 (82) 97 05/10/20 09:00 Room Air 05/10/20 08:00 63 05/10/20 08:00 96.8 77 20 115/59 (77) 98 05/10/20 04:00 74 05/10/20 04:00 99.0 65 20 126/70 (88) 95 05/10/20 01:00 99.9 05/10/20 00:00 100.8 64 18 132/73 (92) 94 79 05/10/20 00:00 75 05/09/20 21:00 Room Air 05/09/20 20:00 79 05/09/20 16:00 99.7 64 18 115/65 (82) 97 05/09/20 16:00 71 Intake and Output 05/09/20 05/10/20 19:00 07:00 Intake Total 120 ml Output Total 30 ml 600 ml Balance 90 ml -600 ml Intake Oral 120 ml Output Urine Total 30 ml 600 ml Laboratory Tests 05/10/20 06:35: White Blood Count 2.5L, Red Blood Count 3.66L, Hemoglobin 10.4L, Hematocrit 33.1L, Mean Corpuscular Volume 90, Mean Corpuscular Hemoglobin 28.3, Mean Corpuscular Hemoglobin Concent 31.4L, Red Cell Distribution Width 13.4, Platelet Count 202, Mean Platelet Volume 4.7L, Neutrophils (%) (Auto) , Lymphocytes (%) (Auto) , Monocytes (%) (Auto) , Eosinophils (%) (Auto) , Basophils (%) (Auto) , Differential Total Cells Counted 100, Neutrophils % (Manual) 63, Lymphocytes % (Manual) 28, Monocytes % (Manual) 9, Eosinophils % (Manual) 0, Basophils % (Manual) 0, Band Neutrophils 0, Platelet Estimate Adequate, Platelet Morphology Normal, Hypochromasia 1+, Sodium Level 133L, Potassium Level 4.0, Chloride Level 100, Carbon Dioxide Level 25, Anion Gap 8, Blood Urea Nitrogen 8, Creatinine 1.0, Estimat Glomerular Filtration Rate > 60, Glucose Level 115H, Calcium Level 8.1L, Phosphorus Level 2.4L, Magnesium Level 1.8, Iron Level 12L, Total Iron Binding Capacity 207L, Percent Iron Saturation 6L, Unsaturated Iron Binding 195, Total Bilirubin 0.2, Aspartate Amino Transf (AST/SGOT) 29, Alanine Aminotransferase (ALT/SGPT) 24, Alkaline Phosphatase 56, Total Protein 6.1L, Albumin 2.1L, Globulin 4.0, Albumin/Globulin Ratio 0.5L, Hepatitis A IgM Antibody [Pending], Hepatitis B Surface Antigen [Pending], Hepatitis B Core IgM Antibody [Pending], Hepatitis C Antibody [Pending], HIV (1&2) Antibody Rapid Negative 05/10/20 11:10: White Blood Count 2.4L, Red Blood Count 3.79L, Hemoglobin 10.7L, Hematocrit 34.4L, Mean Corpuscular Volume 91, Mean Corpuscular Hemoglobin 28.3, Mean Corpuscular Hemoglobin Concent 31.2L, Red Cell Distribution Width 13.5, Platelet Count 208, Mean Platelet Volume 4.7L, Neutrophils (%) (Auto) , Lymphocytes (%) (Auto) , Monocytes (%) (Auto) , Eosinophils (%) (Auto) , Basophils (%) (Auto) , Neutrophils % (Manual) [Pending], Lymphocytes % (Manual) [Pending], Platelet Estimate [Pending], Platelet Morphology [Pending] Height (Feet): 5 Height (Inches): 10.00 Weight (Pounds): 132 Objective General Appearance: no apparent distress Lines, tubes and drains: peripheral HEENT: normocephalic, atraumatic Neck: non-tender Respiratory/Chest: chest wall non-tender, normal breath sounds Extremities: normal range of motion Skin Exam: normal pigmentation Barak Aranda M.D. May 10, 2020 13:17
--- NOTE | 2020-05-10 15:10 | Surgery Progress Note ---
Surgery Progress Note Subjective Symptoms: improved, tolerating diet, passing flatus, BM Objective Last 24 Hour Vital Signs Date Time Temp Pulse Resp B/P (MAP) Pulse Ox O2 Delivery O2 Flow Rate FiO2 05/10/20 12:00 96.8 71 21 118/64 (82) 97 05/10/20 12:00 76 05/10/20 09:00 Room Air 05/10/20 08:00 63 05/10/20 08:00 96.8 77 20 115/59 (77) 98 05/10/20 04:00 74 05/10/20 04:00 99.0 65 20 126/70 (88) 95 05/10/20 01:00 99.9 05/10/20 00:00 100.8 64 18 132/73 (92) 94 79 05/10/20 00:00 75 05/09/20 21:00 Room Air 05/09/20 20:00 79 05/09/20 16:00 99.7 64 18 115/65 (82) 97 05/09/20 16:00 71 I&O Intake and Output 05/09/20 05/10/20 19:00 07:00 Intake Total 120 ml Output Total 30 ml 600 ml Balance 90 ml -600 ml Intake Oral 120 ml Output Urine Total 30 ml 600 ml Dressing: saturated Cardiovascular: RSR Respiratory: decreased breath sounds Abdomen: flat, non-tender, present bowel sounds, non-distended Extremities: no edema, no tenderness, no cyanosis Laboratory Tests Test 05/10/20 06:35 05/10/20 11:10 White Blood Count 2.5 K/UL (4.8-10.8) L 2.4 K/UL (4.8-10.8) L Red Blood Count 3.66 M/UL (4.70-6.10) L 3.79 M/UL (4.70-6.10) L Hemoglobin 10.4 G/DL (14.2-18.0) L 10.7 G/DL (14.2-18.0) L Hematocrit 33.1 % (42.0-52.0) L 34.4 % (42.0-52.0) L Mean Corpuscular Volume 90 FL (80-99) 91 FL (80-99) Mean Corpuscular Hemoglobin 28.3 PG (27.0-31.0) 28.3 PG (27.0-31.0) Mean Corpuscular Hemoglobin Concent 31.4 G/DL (32.0-36.0) L 31.2 G/DL (32.0-36.0) L Red Cell Distribution Width 13.4 % (11.6-14.8) 13.5 % (11.6-14.8) Platelet Count 202 K/UL (150-450) 208 K/UL (150-450) Mean Platelet Volume 4.7 FL (6.5-10.1) L 4.7 FL (6.5-10.1) L Neutrophils (%) (Auto) % (45.0-75.0) % (45.0-75.0) Lymphocytes (%) (Auto) % (20.0-45.0) % (20.0-45.0) Monocytes (%) (Auto) % (1.0-10.0) % (1.0-10.0) Eosinophils (%) (Auto) % (0.0-3.0) % (0.0-3.0) Basophils (%) (Auto) % (0.0-2.0) % (0.0-2.0) Differential Total Cells Counted 100 100 Neutrophils % (Manual) 63 % (45-75) 70 % (45-75) Lymphocytes % (Manual) 28 % (20-45) 20 % (20-45) Monocytes % (Manual) 9 % (1-10) 5 % (1-10) Eosinophils % (Manual) 0 % (0-3) 5 % (0-3) H Basophils % (Manual) 0 % (0-2) 0 % (0-2) Band Neutrophils 0 % (0-8) 0 % (0-8) Platelet Estimate Adequate Decreased L Platelet Morphology Normal Normal Hypochromasia 1+ Sodium Level 133 MMOL/L (136-145) L Potassium Level 4.0 MMOL/L (3.5-5.1) Chloride Level 100 MMOL/L (98-107) Carbon Dioxide Level 25 MMOL/L (21-32) Anion Gap 8 mmol/L (5-15) Blood Urea Nitrogen 8 mg/dL (7-18) Creatinine 1.0 MG/DL (0.55-1.30) Estimat Glomerular Filtration Rate > 60 mL/min (>60) Glucose Level 115 MG/DL (74-106) H Calcium Level 8.1 MG/DL (8.5-10.1) L Phosphorus Level 2.4 MG/DL (2.5-4.9) L Magnesium Level 1.8 MG/DL (1.8-2.4) Iron Level 12 ug/dL (50-175) L Total Iron Binding Capacity 207 ug/dL (250-450) L Percent Iron Saturation 6 % (15-50) L Unsaturated Iron Binding 195 ug/dL (112-346) Total Bilirubin 0.2 MG/DL (0.2-1.0) Aspartate Amino Transf (AST/SGOT) 29 U/L (15-37) Alanine Aminotransferase (ALT/SGPT) 24 U/L (12-78) Alkaline Phosphatase 56 U/L (46-116) Total Protein 6.1 G/DL (6.4-8.2) L Albumin 2.1 G/DL (3.4-5.0) L Globulin 4.0 g/dL Albumin/Globulin Ratio 0.5 (1.0-2.7) L Hepatitis A IgM Antibody Pending Hepatitis B Surface Antigen Pending Hepatitis B Core IgM Antibody Pending Hepatitis C Antibody Pending HIV (1&2) Antibody Rapid Negative (NEGATIVE) Red Blood Cell Morphology Normal Plan Problems: (1) Hyponatremia (2) UTI (urinary tract infection) (3) COVID-19 (4) Abdominal pain Assessment & Plan: KUB noted likely constipated recommend bowel regimen hold on further imaging okay for diet activity as tolerated will follow with exam and recs thank you penile soft tissue pelvic swelling. likely seroma. does not seem to be abscess. will monitor toth causing breakdown of penile meatus chronic contractures Abdomen: Nonobstructive but nonspecific bowel gas pattern. Moderate to large amount of stool. No free air. Bones: Chronic appearing deformity of the proximal right femur. Soft tissues: Normal. IMPRESSION: Nonobstructive but nonspecific bowel gas pattern. Moderate to large amount of stool. Harry Brown May 10, 2020 15:10
[2020-05-10 16:00] VITALS: BP 119/67
--- NOTE | 2020-05-10 19:39 | NUR ---
NURSE HAND-OFF REPORT: Important Events on Shift: Calorie count ordered by Dr Jimenez Patient Status: Stable Diet: Cardiac puree moist Pending Orders: Pending Results/Labs: Pending MD notification: Latest Vital Signs: Temperature 96.7 , Pulse 74 , B/P 119 /67 , Respiratory Rate 22 , O2 SAT 98 , Room Air, O2 Flow Rate . Vital Sign Comment: Stable EKG Rhythm: Sinus Rhythm Rhythm change?: N MD Notified?: - MD Response: Latest [place] Fall Score: 55 Fall Risk: High Risk Safety Measures: Call light Within Reach, Bed Alarm Zone 1, Side Rails Side Rails x3, Bed position Low and Locked. Fall Precautions: Yellow Socks Yellow Gown Door Sign Patient Fall Education Report given to Nai/RN.
--- NOTE | 2020-05-10 19:40 | NUR ---
NURSE NOTES: Received pt AOX4, nonverbal; in no acute distress; covid+ on contact and droplet precautions; call light within reach; bedside in low position and locked; side rails x 2; will continue to monitor.
[2020-05-10 20:00] VITALS: BP 109/68
[2020-05-10] MEDS ORDERED: Sodium Phosphate 15 MM in NS 275 ML IVPB ONE (21:00)
[2020-05-10] MEDS: Atorvastatin 80mg tab ORAL SCH (22:52)
[2020-05-10] MEDS: Iron Sucrose 100 MG in NS 55 ML IVPB SCH (22:59)
[2020-05-10] MEDS: Miralax 17gm pkt ORAL SCH (22:59)
[2020-05-11] VITALS: BP 108/65
--- NOTE | 2020-05-11 00:08 | NUR ---
NURSE NOTES: Pt noted with hematuria; on f/c 16Fr; no facial grimace noted; F/C stabilizer placed; sinus rhythm; v/s stable; hgb and hct within range; Contacted Dr. Benítez; will f/u with any orders.
[2020-05-11] MEDS: Vancomycin 750mg/D5W 275ml IVPB SCH ×2 (01:44)
[2020-05-11 04:00] VITALS: BP 117/67
[2020-05-11] MEDS: Piperacillin/Tazobactam 3.375 GM in D5W 110 ML IVPB SCH ×2 (05:12→15:40)
--- NOTE | 2020-05-11 06:32 | Consultation ---
History of Present Illness General Chief Complaint: Abnormal Labs Reason for Consultation: Hyponatremia Present Illness Allergies: Coded Allergies: No Known Allergies (Unverified , 05/07/20) Medication History Scheduled Amlodipine Besylate* (Amlodipine Besylate*), 10 MG ORAL DAILY, (Reported) Atorvastatin Calcium* (Lipitor*), 80 MG ORAL BEDTIME, (Reported) Bupropion Sr* (Wellbutrin Sr*), 150 MG ORAL DAILY, (Reported) Carvedilol* (Carvedilol*), 25 MG ORAL BID, (Reported) Ferrous Sulfate (Ferrous Sulfate), 7.5 ML ORAL TID, (Reported) Finasteride* (Proscar*), 5 MG ORAL DAILY, (Reported) Gabapentin* (Gabapentin*), 600 MG ORAL Q8HR, (Reported) Insulin Regular, Human (Humulin R), SUBQ BEFORE MEALS AND QHS, (Reported) Losartan Potassium* (Losartan Potassium*), 100 MG ORAL DAILY, (Reported) Pantoprazole* (Protonix*), 40 MG ORAL DAILY, (Reported) Tamsulosin HCl (Flomax), 0.4 MG ORAL QHS, (Reported) Trimethoprim/Sulfamethoxazole 160/800* (Bactrim Ds Tablet*), 1 TAB ORAL BID, (Reported) Scheduled PRN Acetaminophen* (Acetaminophen 325MG Tablet*), 650 MG ORAL Q6H PRN for FEVER AND PAIN, (Reported) Diphenhydramine Hcl* (Diphenhydramine Hcl*), 25 MG ORAL Q8H PRN for Itching, (Reported) Discontinued Medications Atorvastatin Calcium* (Atorvastatin Calcium*), 80 MG ORAL BEDTIME, (Reported) Discontinued Reason: Prescription changed Ferrous Sulfate* (Ferrous Sulfate*), 450 MG ORAL TID, (Reported) Discontinued Reason: Prescription changed Patient History Healthcare decision maker Resuscitation status Advanced Directive on File No Physical Exam Last 24 Hour Vital Signs Date Time Temp Pulse Resp B/P (MAP) Pulse Ox O2 Delivery O2 Flow Rate FiO2 05/11/20 04:00 63 05/11/20 04:00 97.9 68 18 117/67 (84) 96 05/11/20 00:00 97.9 66 18 108/65 (79) 95 05/11/20 00:00 68 05/10/20 21:00 Room Air 05/10/20 20:00 99.7 74 16 109/68 (82) 96 05/10/20 16:00 74 05/10/20 16:00 96.7 81 22 119/67 (84) 98 05/10/20 12:00 96.8 71 21 118/64 (82) 97 05/10/20 12:00 76 05/10/20 09:00 Room Air 05/10/20 08:00 63 05/10/20 08:00 96.8 77 20 115/59 (77) 98 Intake and Output 05/10/20 05/11/20 19:00 07:00 Intake Total 540.273 ml Output Total 400 ml Balance 140.273 ml Intake Oral 120 ml IV Total 420.273 ml Output Urine Total 400 ml # Voids 3 # Bowel Movements 1 Laboratory Tests Test 05/10/20 06:35 05/10/20 11:10 White Blood Count 2.5 K/UL (4.8-10.8) L 2.4 K/UL (4.8-10.8) L Red Blood Count 3.66 M/UL (4.70-6.10) L 3.79 M/UL (4.70-6.10) L Hemoglobin 10.4 G/DL (14.2-18.0) L 10.7 G/DL (14.2-18.0) L Hematocrit 33.1 % (42.0-52.0) L 34.4 % (42.0-52.0) L Mean Corpuscular Volume 90 FL (80-99) 91 FL (80-99) Mean Corpuscular Hemoglobin 28.3 PG (27.0-31.0) 28.3 PG (27.0-31.0) Mean Corpuscular Hemoglobin Concent 31.4 G/DL (32.0-36.0) L 31.2 G/DL (32.0-36.0) L Red Cell Distribution Width 13.4 % (11.6-14.8) 13.5 % (11.6-14.8) Platelet Count 202 K/UL (150-450) 208 K/UL (150-450) Mean Platelet Volume 4.7 FL (6.5-10.1) L 4.7 FL (6.5-10.1) L Neutrophils (%) (Auto) % (45.0-75.0) % (45.0-75.0) Lymphocytes (%) (Auto) % (20.0-45.0) % (20.0-45.0) Monocytes (%) (Auto) % (1.0-10.0) % (1.0-10.0) Eosinophils (%) (Auto) % (0.0-3.0) % (0.0-3.0) Basophils (%) (Auto) % (0.0-2.0) % (0.0-2.0) Differential Total Cells Counted 100 100 Neutrophils % (Manual) 63 % (45-75) 70 % (45-75) Lymphocytes % (Manual) 28 % (20-45) 20 % (20-45) Monocytes % (Manual) 9 % (1-10) 5 % (1-10) Eosinophils % (Manual) 0 % (0-3) 5 % (0-3) H Basophils % (Manual) 0 % (0-2) 0 % (0-2) Band Neutrophils 0 % (0-8) 0 % (0-8) Platelet Estimate Adequate Decreased L Platelet Morphology Normal Normal Hypochromasia 1+ Sodium Level 133 MMOL/L (136-145) L Potassium Level 4.0 MMOL/L (3.5-5.1) Chloride Level 100 MMOL/L (98-107) Carbon Dioxide Level 25 MMOL/L (21-32) Anion Gap 8 mmol/L (5-15) Blood Urea Nitrogen 8 mg/dL (7-18) Creatinine 1.0 MG/DL (0.55-1.30) Estimat Glomerular Filtration Rate > 60 mL/min (>60) Glucose Level 115 MG/DL (74-106) H Calcium Level 8.1 MG/DL (8.5-10.1) L Phosphorus Level 2.4 MG/DL (2.5-4.9) L Magnesium Level 1.8 MG/DL (1.8-2.4) Iron Level 12 ug/dL (50-175) L Total Iron Binding Capacity 207 ug/dL (250-450) L Percent Iron Saturation 6 % (15-50) L Unsaturated Iron Binding 195 ug/dL (112-346) Total Bilirubin 0.2 MG/DL (0.2-1.0) Aspartate Amino Transf (AST/SGOT) 29 U/L (15-37) Alanine Aminotransferase (ALT/SGPT) 24 U/L (12-78) Alkaline Phosphatase 56 U/L (46-116) Total Protein 6.1 G/DL (6.4-8.2) L Albumin 2.1 G/DL (3.4-5.0) L Globulin 4.0 g/dL Albumin/Globulin Ratio 0.5 (1.0-2.7) L Hepatitis A IgM Antibody Negative (Negative) Hepatitis B Surface Antigen Negative (Negative) Hepatitis B Core IgM Antibody Negative (Negative) Hepatitis C Antibody <0.1 s/co ratio HIV (1&2) Antibody Rapid Negative (NEGATIVE) Red Blood Cell Morphology Normal Height (Feet): 5 Height (Inches): 10.00 Weight (Pounds): 132 Medications Current Medications Medications (Trade) Dose Ordered Sig/Luis E Route PRN Reason Start Time Stop Time Status Last Admin Dose Admin Acetaminophen (Tylenol) 325 mg Q6H PRN RECTAL Temp >100.5 05/09/20 10:45 06/08/20 10:44 05/09/20 11:03 Acetaminophen (Tylenol) 650 mg Q6H PRN ORAL Temp >100.5 05/10/20 00:15 06/09/20 00:14 Atorvastatin Calcium (Lipitor) 80 mg BEDTIME ORAL 05/07/20 21:00 08/05/20 20:59 05/10/20 22:52 Bisacodyl (Dulcolax) 10 mg DAILYPRN PRN RECTAL Constipation 05/07/20 15:45 08/05/20 15:44 Bupropion HCl (Wellbutrin SR) 150 mg DAILY ORAL 05/08/20 11:00 06/07/20 10:59 05/10/20 09:34 Dextrose (Dextrose 50%) 25 ml Q30M PRN IV Hypoglycemia 05/07/20 15:45 08/05/20 15:44 Dextrose (Dextrose 50%) 50 ml Q30M PRN IV Hypoglycemia 05/07/20 15:45 08/05/20 15:44 Docusate Sodium (Colace) 100 mg TWICE A DAY ORAL 05/08/20 09:00 06/07/20 08:59 05/10/20 17:58 Heparin Sodium (Porcine) (Heparin 5000 units/ml) 5,000 units EVERY 12 HOURS SUBQ 05/08/20 09:00 06/22/20 08:59 05/10/20 22:54 Iron Sucrose 100 mg/Sodium Chloride 60 ml @ 240 mls/hr BEDTIME IVPB 05/10/20 21:00 05/14/20 21:14 05/10/20 22:59 Pantoprazole (Protonix) 40 mg DAILY IV 05/08/20 09:00 06/07/20 08:59 05/10/20 09:35 Piperacillin Sod/ Tazobactam Sod 3.375 gm/Dextrose 110 ml @ 27.5 mls/hr EVERY 8 HOURS IVPB 05/09/20 22:00 05/14/20 21:59 05/11/20 05:12 Polyethylene Glycol (Miralax) 17 gm BEDTIME ORAL 05/08/20 21:00 06/07/20 20:59 05/10/20 22:59 Potassium Chloride 10 meq/ Dextrose/Sodium Chloride 1,005 ml @ 75 mls/hr [id number] IV 05/08/20 08:00 06/07/20 07:59 05/10/20 13:15 [facility]com[facility] 1 ea DAILY PRN MISC Per rx protocol 05/09/20 21:00 06/08/20 20:59 Vancomycin HCl 750 mg/Dextrose 275 ml @ 183.333 mls/hr Q12HR@0100,1300 IVPB 05/10/20 01:00 05/15/20 00:59 05/11/20 01:44 Assessment/Plan Assessment/Plan: Hematology Consultation SADIE JEFFERY: Avani RFC: Anemia, Leukopenia eval DOS: 05/11/2020 ID 64-year-old male past medical history of hypertension, CVA nonverbal at baseline, renal insufficiency who was brought in from SNF for hyponatremia. He recently tested positive for COVID-19. Patient is nonverbal and unable to provide any history. In ED, he was found to have hyponatremia as well as possible UTI. He does not appear to have respiratory symptoms/signs. Noted with covid19 pna, on abx, with low wbc, and anemia. Unable to verify patient's PMH, PSH, Fam Hx, Soc Hx due to patient's nonverbal status. Allergies: No Known Allergies (Unverified , 05/07/20) COVID-19 Screening Contact w/high risk pt: Yes Experienced COVID-19 symptoms?: No Medication History Scheduled Amlodipine Besylate* (Amlodipine Besylate*), 10 MG ORAL DAILY, (Reported) Atorvastatin Calcium* (Atorvastatin Calcium*), 80 MG ORAL BEDTIME, (Reported) Atorvastatin Calcium* (Atorvastatin Calcium*), 80 MG ORAL BEDTIME, (Reported) Bupropion Sr* (Wellbutrin Sr*), 150 MG ORAL DAILY, (Reported) Carvedilol* (Carvedilol*), 25 MG ORAL EVERY 12 HOURS, (Reported) Ferrous Sulfate* (Ferrous Sulfate*), 450 MG ORAL TID, (Reported) Finasteride* (Proscar*), 5 MG ORAL DAILY, (Reported) Gabapentin* (Gabapentin*), 600 MG ORAL THREE TIMES A DAY, (Reported) Losartan Potassium* (Losartan Potassium*), 100 MG ORAL DAILY, (Reported) Pantoprazole* (Protonix*), 40 MG ORAL DAILY, (Reported) Tamsulosin HCl (Flomax), 0.4 MG ORAL HS, (Reported) Trimethoprim/Sulfamethoxazole 160/800* (Bactrim Ds Tablet*), 1 TAB ORAL DAILY, (Reported) Miscellaneous Medications Insulin Regular, Human (Humulin R), 0 SUBQ, (Reported) Patient History Limited by: medical condition History Provided By: Medical Record Healthcare decision maker Resuscitation status Advanced Directive on File Review of Systems ROS Narrative Unable to obtain ROS due to patient's nonverbal status. Physical Exam General Appearance: no apparent distress, thin HEENT: normocephalic, atraumatic Neck: non-tender, supple, normal inspection Respiratory/Chest: lungs clear, normal breath sounds Cardiovascular/Chest: normal rate, regular rhythm, no gallop/murmur Abdomen: soft, no organomegaly Extremities: other - severe contractures ++ Skin Exam: normal pigmentation Neurologic: motor weakness Musculoskeletal: atrophy Gu: +toth Labs: reviewed Meds: noted Assessment/Plan: # Leukopenia with hx of recent COVID-19 infection, pna --> continue ABX per id --> smear has been noted --> meds reviewed --> wbc 3.9-->2.4 --> consider neupogen as needed # Anemia due to underlying chronic disease --> anemia panel reviewed --> also with hematuria --> hgb 11-->10.7 # Respiratory alkalosis - on ABG --> No indication for dexamethasone or remdesivir at this time per ID --> per ID and pulm # Hyponatremia - Na 126 on admission --> per renal # Renal insufficiency --> Nephrology consult Dr. Aranda - BMP daily # UTI --> CTX per ID # HTN # Dyslipidemia # Hx of CVA Appreciate consultation and dw PCP Shaji Carrillo MD May 11, 2020 06:32
--- NOTE | 2020-05-11 07:25 | NUR ---
NURSE HAND-OFF REPORT: Important Events on Shift: Due meds administered and tolerated well; meds given crushed with apple sauce; severely contracted; noted with hematuria d/t possible being pulled, f/c stabilizer placed; Dr. huizar aware and to continue to monitor pt; calorie count x 48 hrs Patient Status: AOX1; NONVERBAL; STABLE Diet: CARDIAC PUREE MOIST; NECTAR thick liquids; crush meds give with apple sauce Pending Orders: n/a Pending Results/Labs: morning labs; f/u blood cx from 05/07/20 Pending MD notification: n/a Latest Vital Signs: Temperature 97.9 , Pulse 63 , B/P 117 /67 , Respiratory Rate 18 , O2 SAT 96 , Room Air, O2 Flow Rate . Vital Sign Comment: stable EKG Rhythm: Sinus Rhythm Rhythm change?: N MD Notified?: - MD Response: Latest Hankins Fall Score: 55 Fall Risk: High Risk Safety Measures: Call light Within Reach, Bed Alarm Zone 1, Side Rails Side Rails x3, Bed position Low and Locked. Fall Precautions: Yellow Socks Yellow Gown Door Sign Patient Fall Education Report given to CARO Babb[].
--- NOTE | 2020-05-11 07:41 | General Progress Note ---
Subjective ROS Limited/Unobtainable: Yes Allergies: Coded Allergies: No Known Allergies (Unverified , 05/07/20) Objective Last 24 Hour Vital Signs Date Time Temp Pulse Resp B/P (MAP) Pulse Ox O2 Delivery O2 Flow Rate FiO2 05/11/20 04:00 63 05/11/20 04:00 97.9 68 18 117/67 (84) 96 05/11/20 00:00 97.9 66 18 108/65 (79) 95 05/11/20 00:00 68 05/10/20 21:00 Room Air 05/10/20 20:00 99.7 74 16 109/68 (82) 96 05/10/20 16:00 74 05/10/20 16:00 96.7 81 22 119/67 (84) 98 05/10/20 12:00 96.8 71 21 118/64 (82) 97 05/10/20 12:00 76 05/10/20 09:00 Room Air 05/10/20 08:00 63 05/10/20 08:00 96.8 77 20 115/59 (77) 98 Intake and Output 05/10/20 05/11/20 19:00 07:00 Intake Total 680.273 ml Output Total 1300 ml Balance -619.727 ml Intake Oral 260 ml IV Total 420.273 ml Output Urine Total 1300 ml # Voids 3 # Bowel Movements 2 Laboratory Tests 05/10/20 11:10: White Blood Count 2.4L, Red Blood Count 3.79L, Hemoglobin 10.7L, Hematocrit 34.4 L, Mean Corpuscular Volume 91, Mean Corpuscular Hemoglobin 28.3, Mean Corpuscular Hemoglobin Concent 31.2L, Red Cell Distribution Width 13.5, Platelet Count 208, Mean Platelet Volume 4.7L, Neutrophils (%) (Auto) , Lymphocytes (%) (Auto) , Monocytes (%) (Auto) , Eosinophils (%) (Auto) , Basophils (%) (Auto) , Differential Total Cells Counted 100, Neutrophils % (Manual) 70, Lymphocytes % (Manual) 20, Monocytes % (Manual) 5, Eosinophils % (Manual) 5H, Basophils % (Manual) 0, Band Neutrophils 0, Platelet Estimate DecreasedL, Platelet Morphology Normal, Red Blood Cell Morphology Normal 05/11/20 07:23: White Blood Count [Pending], Red Blood Count [Pending], Hemoglobin [Pending], Hematocrit [Pending], Mean Corpuscular Volume [Pending], Mean Corpuscular Hemoglobin [Pending], Mean Corpuscular Hemoglobin Concent [Pending], Red Cell Distribution Width [Pending], Platelet Count [Pending], Mean Platelet Volume [Pending], Neutrophils (%) (Auto) [Pending], Lymphocytes (%) (Auto) [Pending], Monocytes (%) (Auto) [Pending], Eosinophils (%) (Auto) [Pending], Basophils (%) (Auto) [Pending], Sodium Level [Pending], Potassium Level [Pending], Chloride Level [Pending], Carbon Dioxide Level [Pending], Blood Urea Nitrogen [Pending], Creatinine [Pending], Estimat Glomerular Filtration Rate [Pending], Glucose Level [Pending], Calcium Level [Pending], Magnesium Level [Pending] Height (Feet): 5 Height (Inches): 10.00 Weight (Pounds): 132 General Appearance: no apparent distress EENT: normal ENT inspection Neck: supple Cardiovascular: normal rate Respiratory/Chest: decreased breath sounds Abdomen: normal bowel sounds, non tender, soft Extremities: non-tender Assessment/Plan Assessment/Plan: 1. Pneumonia. 2. Hyponatremia. 3. UTI. 4. Constipation. 5. Normocytic anemia. 6. History of CVA. 7. History of Covid 8. History of hypercholesteremia. 9. History of BPH. bowel regimen stable H&H stool ob neg passed swallow eval add marinol hematology in put appreciated calorie count iv iron repeat labs will fu Alejandro Jimenez MD May 11, 2020 07:41
[2020-05-11 07:53] LABS: HEMATOCRIT 34.7 % (42.0-52.0); HEMOGLOBIN 10.7 G/DL (14.2-18.0); MEAN CORPUSCULAR VOLUME 91 FL (80-99); PLATELET COUNT 220 K/UL (150-450); RED BLOOD COUNT 3.82 M/UL (4.70-6.10); RED CELL DISTRIBUTION WIDTH 13.5 % (11.6-14.8)
[2020-05-11 08:00] VITALS: BP 117/67
[2020-05-11 08:00] LABS: WHITE BLOOD COUNT 1.8 K/UL (4.8-10.8)
[2020-05-11 08:29] LABS: ANION GAP 8 mmol/L (5-15); BLOOD UREA NITROGEN 6 mg/dL (7-18); CALCIUM 7.7 MG/DL (8.5-10.1); CARBON DIOXIDE 25 MMOL/L (21-32); CHLORIDE 100 MMOL/L (98-107); CREATININE 0.9 MG/DL (0.55-1.30); POTASSIUM 3.6 MMOL/L (3.5-5.1); SODIUM 133 MMOL/L (136-145)
[2020-05-11] MEDS: Heparin 5000 units/ml inj SUBQ SCH ×2 (09:00→21:56)
--- NOTE | 2020-05-11 09:40 | General Progress Note ---
Subjective ROS Limited/Unobtainable: Yes - Advanced dementia, nonverbal at baseline Allergies: Coded Allergies: No Known Allergies (Unverified , 05/07/20) Subjective No acute events overnight. T-max 99.7 overnight. Patient resting comfortably in bed. No acute distress. Severe contractures in upper extremities and lower extremities. Objective Last 24 Hour Vital Signs Date Time Temp Pulse Resp B/P (MAP) Pulse Ox O2 Delivery O2 Flow Rate FiO2 05/11/20 08:00 98.1 80 20 117/67 (84) 96 05/11/20 04:00 63 05/11/20 04:00 97.9 68 18 117/67 (84) 96 05/11/20 00:00 97.9 66 18 108/65 (79) 95 05/11/20 00:00 68 05/10/20 21:00 Room Air 05/10/20 20:00 99.7 74 16 109/68 (82) 96 05/10/20 16:00 74 05/10/20 16:00 96.7 81 22 119/67 (84) 98 05/10/20 12:00 96.8 71 21 118/64 (82) 97 05/10/20 12:00 76 Intake and Output 05/10/20 05/11/20 19:00 07:00 Intake Total 680.273 ml Output Total 1300 ml Balance -619.727 ml Intake Oral 260 ml IV Total 420.273 ml Output Urine Total 1300 ml # Voids 3 # Bowel Movements 2 Laboratory Tests 05/10/20 11:10: White Blood Count 2.4L, Red Blood Count 3.79L, Hemoglobin 10.7L, Hematocrit 34.4L, Mean Corpuscular Volume 91, Mean Corpuscular Hemoglobin 28.3, Mean Corpuscular Hemoglobin Concent 31.2L, Red Cell Distribution Width 13.5, Platelet Count 208, Mean Platelet Volume 4.7L, Neutrophils (%) (Auto) , Lymphocytes (%) (Auto) , Monocytes (%) (Auto) , Eosinophils (%) (Auto) , Basophils (%) (Auto) , Differential Total Cells Counted 100, Neutrophils % (Manual) 70, Lymphocytes % (Manual) 20, Monocytes % (Manual) 5, Eosinophils % (Manual) 5H, Basophils % (Manual) 0, Band Neutrophils 0, Platelet Estimate DecreasedL, Platelet Morphology Normal, Red Blood Cell Morphology Normal 05/11/20 07:23: White Blood Count 1.8*L, Red Blood Count 3.82L, Hemoglobin 10.7L, Hematocrit 34.7L, Mean Corpuscular Volume 91, Mean Corpuscular Hemoglobin 28.1, Mean Corpuscular Hemoglobin Concent 30.9L, Red Cell Distribution Width 13.5, Platelet Count 220, Mean Platelet Volume 5.6L, Neutrophils (%) (Auto) , Lymphocytes (%) (Auto) , Monocytes (%) (Auto) , Eosinophils (%) (Auto) , Basophils (%) (Auto) , Neutrophils % (Manual) [Pending], Lymphocytes % (Manual) [Pending], Platelet Estimate [Pending], Platelet Morphology [Pending], Sodium Level 133L, Potassium Level 3.6, Chloride Level 100, Carbon Dioxide Level 25, Anion Gap 8, Blood Urea Nitrogen 6L, Creatinine 0.9, Estimat Glomerular Filtration Rate > 60, Glucose Level 109H, Calcium Level 7.7L, Magnesium Level 1.7L Height (Feet): 5 Height (Inches): 10.00 Weight (Pounds): 132 General Appearance: no apparent distress, alert, confused EENT: PERRL/EOMI Neck: non-tender, normal alignment Cardiovascular: normal rate, regular rhythm, no JVD Respiratory/Chest: lungs clear, normal breath sounds, respiratory distress Abdomen: non tender, soft Extremities: other - Severe contractures of the upper extremities and lower extremities Edema: no edema noted Arm (L), no edema noted Arm (R), no edema noted Leg (L), no edema noted Leg (R), no edema noted Pedal (L), no edema noted Pedal (R), no edema noted 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 Kovacs is a 64-year-old male past medical history of hypertension, CVA nonverbal at baseline, renal insufficiency who was brought in from [facility] for hyponatremia. He recently tested positive for COVID-19. Patient is nonverbal and unable to provide any history. # Hypovolemic hyponatremia 2/2 poor oral intakeimproving # COVID-19 infection # UTI 2/2 Enterococcus # Respiratory alkalosis - on ABG # Leukopenia likely secondary to viral infectionworsening # Normocytic anemia likely secondary to ACD # DURGA 2/2 prerenal azotemia # Essential hypertension # ?Chronic encephalopathy # Hyperlipidemia # History of CVA # Nonverbal P: Hemodynamically stable Saturating well on room air, monitor for increased O2 support No indications of dexamethasone, remdesivir Continue broad-spectrum coverage with Vanco/Zosyn per ID Urine cultures positive for Enterococcus, defer antibiotics to ID T-max 99.7, no fevers over last 24 hours Leukopenia worsening continue to monitor CBC, need may need Neupogen IVF Monitor sodium levels, improving Monitor renal function Monitor electrolytes replace as needed Continue home statin Continue home Wellbutrin - Pulmonary consult Dr. Gann, recs appreciated - ID consult Dr. Hewitt, recs appreciated Consult Dr. Haji, heme-onc recs appreciated - Nephrology consult Dr. Aranda, recs appreciated CM CODE: Full Diet: Cardiac DVT: Heparin 5000 BUD Dispo: pending improvement of covid, UTI infection, DC back to SNF Time spent on this encounter was 41 minutes which included 24 minutes of counseling and care coordination. I discussed with the nurse at bedside. Time of note may not reflect time patient was seen. Marcell Varma D.O May 11, 2020 09:40
[2020-05-11] MEDS: Docusate 100mg cap ORAL SCH ×2 (10:12→17:42)
[2020-05-11] MEDS: Pantoprazole Inj IV SCH (10:13)
[2020-05-11] MEDS: BuPROPion SR 150mg tab ORAL SCH (10:13)
[2020-05-11] MEDS: Dronabinol 2.5mg Cap ORAL SCH ×2 (10:29→17:42)
--- NOTE | 2020-05-11 10:41 | NUR ---
Speech Pathology Note (Dysphagia F/U) WBC 1.8k, Na 133 S: Repositioned for feeding. O: 1. Swallow safety: I fed him this morning. He was able to pace his feeding by nodding his head (Too fast), open his mouth (Ready for next bite), and clinician was able to provide him 80% of cream of wheat, 120cc of thick juice. He tolerated safely at this time. A: 1. Oropharyngeal Dysphagia with aspiration risk P: 1. Pureed and [employer] thick liquid with aspiration precaution Kelechi Luna
--- NOTE | 2020-05-11 11:07 | Pulmonology Progress Note ---
Subjective ROS Limited/Unobtainable: Yes - Advanced dementia, nonverbal at baseline Interval Events: None new Constitutional: Reports: fever HEENT: Repors: no symptoms Respiratory: Reports: no symptoms Cardiovascular: Reports: no symptoms Gastrointestinal/Abdominal: Denies: nausea, vomiting, diarrhea Psychiatric: Reports: other - NA Skin: Denies: rash Musculoskeletal: Denies: pain Allergies: Coded Allergies: No Known Allergies (Unverified , 05/07/20) Objective Last 24 Hour Vital Signs Date Time Temp Pulse Resp B/P (MAP) Pulse Ox O2 Delivery O2 Flow Rate FiO2 05/11/20 08:00 98.1 80 20 117/67 (84) 96 05/11/20 04:00 63 05/11/20 04:00 97.9 68 18 117/67 (84) 96 05/11/20 00:00 97.9 66 18 108/65 (79) 95 05/11/20 00:00 68 05/10/20 21:00 Room Air 05/10/20 20:00 99.7 74 16 109/68 (82) 96 05/10/20 16:00 74 05/10/20 16:00 96.7 81 22 119/67 (84) 98 05/10/20 12:00 96.8 71 21 118/64 (82) 97 05/10/20 12:00 76 Intake and Output 05/10/20 05/11/20 18:59 06:59 Intake Total 680.273 ml Output Total 1300 ml Balance -619.727 ml Intake Oral 260 ml IV Total 420.273 ml Output Urine Total 1300 ml # Voids 3 # Bowel Movements 2 General Appearance: no acute distress HEENT: normocephalic Respiratory: chest wall non-tender, lungs clear Cardiovascular: normal peripheral pulses Abdomen: normal bowel sounds Microbiology Date/Time Source Procedure Growth Status 05/09/20 12:00 Blood Blood Culture - Preliminary NO GROWTH AFTER 24 HOURS Resulted 05/09/20 11:50 Blood Blood Culture - Preliminary NO GROWTH AFTER 24 HOURS Resulted Laboratory Tests 05/10/20 11:10: White Blood Count 2.4L, Red Blood Count 3.79L, Hemoglobin 10.7L, Hematocrit 34.4L, Mean Corpuscular Volume 91, Mean Corpuscular Hemoglobin 28.3, Mean Corpuscular Hemoglobin Concent 31.2L, Red Cell Distribution Width 13.5, Platelet Count 208, Mean Platelet Volume 4.7L, Neutrophils (%) (Auto) , Lymphocytes (%) (Auto) , Monocytes (%) (Auto) , Eosinophils (%) (Auto) , Basophils (%) (Auto) , Differential Total Cells Counted 100, Neutrophils % (Manual) 70, Lymphocytes % (Manual) 20, Monocytes % (Manual) 5, Eosinophils % (Manual) 5H, Basophils % (Manual) 0, Band Neutrophils 0, Platelet Estimate DecreasedL, Platelet Morphology Normal, Red Blood Cell Morphology Normal 05/11/20 07:23: White Blood Count 1.8*L, Red Blood Count 3.82L, Hemoglobin 10.7L, Hematocrit 34.7L, Mean Corpuscular Volume 91, Mean Corpuscular Hemoglobin 28.1, Mean Corpuscular Hemoglobin Concent 30.9L, Red Cell Distribution Width 13.5, Platelet Count 220, Mean Platelet Volume 5.6L, Neutrophils (%) (Auto) , Lymphocytes (%) (Auto) , Monocytes (%) (Auto) , Eosinophils (%) (Auto) , Basophils (%) (Auto) , Differential Total Cells Counted 100, Neutrophils % (Manual) 55, Lymphocytes % (Manual) 34, Monocytes % (Manual) 11H, Eosinophils % (Manual) 0, Basophils % (Manual) 0, Band Neutrophils 0, Platelet Estimate Adequate, Platelet Morphology Normal, Hypochromasia 1+, Sodium Level 133L, Potassium Level 3.6, Chloride Level 100, Carbon Dioxide Level 25, Anion Gap 8, Blood Urea Nitrogen 6L, Creatinine 0.9, Estimat Glomerular Filtration Rate > 60, Glucose Level 109H, Calcium Level 7.7L, Magnesium Level 1.7L Current Medications Medications (Trade) Dose Ordered Sig/Luis E Route PRN Reason Start Time Stop Time Status Last Admin Dose Admin Acetaminophen (Tylenol) 325 mg Q6H PRN RECTAL Temp >100.5 05/09/20 10:45 06/08/20 10:44 05/09/20 11:03 Acetaminophen (Tylenol) 650 mg Q6H PRN ORAL Temp >100.5 05/10/20 00:15 06/09/20 00:14 Atorvastatin Calcium (Lipitor) 80 mg BEDTIME ORAL 05/07/20 21:00 08/05/20 20:59 05/10/20 22:52 Bisacodyl (Dulcolax) 10 mg DAILYPRN PRN RECTAL Constipation 05/07/20 15:45 08/05/20 15:44 Bupropion HCl (Wellbutrin SR) 150 mg DAILY ORAL 05/08/20 11:00 06/07/20 10:59 05/11/20 10:13 Dextrose (Dextrose 50%) 25 ml Q30M PRN IV Hypoglycemia 05/07/20 15:45 08/05/20 15:44 Dextrose (Dextrose 50%) 50 ml Q30M PRN IV Hypoglycemia 05/07/20 15:45 08/05/20 15:44 Docusate Sodium (Colace) 100 mg TWICE A DAY ORAL 05/08/20 09:00 06/07/20 08:59 05/11/20 10:12 Dronabinol (Marinol) 2.5 mg BID ORAL 05/11/20 09:00 08/09/20 08:59 05/11/20 10:29 Heparin Sodium (Porcine) (Heparin 5000 units/ml) 5,000 units EVERY 12 HOURS SUBQ 05/08/20 09:00 06/22/20 08:59 05/10/20 22:54 Iron Sucrose 100 mg/Sodium Chloride 60 ml @ 240 mls/hr BEDTIME IVPB 05/10/20 21:00 05/14/20 21:14 05/10/20 22:59 Magnesium Sulfate 100 ml @ 100 mls/hr ONCE IVPB 05/11/20 10:30 05/11/20 11:30 05/11/20 10:13 Pantoprazole (Protonix) 40 mg DAILY IV 05/08/20 09:00 06/07/20 08:59 05/11/20 10:13 Piperacillin Sod/ Tazobactam Sod 3.375 gm/Dextrose 110 ml @ 27.5 mls/hr EVERY 8 HOURS IVPB 05/09/20 22:00 05/14/20 21:59 05/11/20 05:12 Polyethylene Glycol (Miralax) 17 gm BEDTIME ORAL 05/08/20 21:00 06/07/20 20:59 05/10/20 22:59 Potassium Chloride 10 meq/ Dextrose/Sodium Chloride 1,005 ml @ 75 mls/hr [id number] IV 05/08/20 08:00 06/07/20 07:59 05/10/20 13:15 Vancomycin HCl (Vanco pharmacy to dose) 1 ea DAILY PRN MISC Per rx protocol 05/09/20 21:00 06/08/20 20:59 Vancomycin HCl 750 mg/Dextrose 275 ml @ 183.333 mls/hr Q12HR@0100,1300 IVPB 05/10/20 01:00 05/15/20 00:59 05/11/20 01:44 Assessment/Plan Assessment/Plan IMPRESSION: 1. COVID-19 pneumonia. 2. Hyponatremia. Na now 133 3. CVA. 4. Hyperlipidemia. DISCUSSION: The patient is saturating well on room air. I would recommend holding off on further therapies for COVID-19 pneumonia as he is not hypoxic. Abx per ID I will follow as research archaeologist. Isiah Coffey Omar Syed MD May 11, 2020 11:07
--- NOTE | 2020-05-11 11:34 | NUR ---
NURSE NOTES: Report received from RN. Pt is awake and only able to note incomprehensible sounds. on room air with no signs of resp distress, sob or pain. Pt is on school lunch monitor with ST noted. pt is afebrile. IV on left FA patent and infusing D5 1/2 NS @ 75ml/hr. Pt is ambulatory and using bedside commode. Pt is cont and currently NPO for scheduled colonoscopy. Bed low and locked, siderails up x2, call light placed within reach and instructed to call nurse for assistance. Will continue with plan of care.
[2020-05-11 11:51] VITALS: BP 119/71
--- NOTE | 2020-05-11 13:22 | Surgery Progress Note ---
Surgery Progress Note Subjective Additional Comments wbc 1.8 labs worse no n/v Objective Last 24 Hour Vital Signs Date Time Temp Pulse Resp B/P (MAP) Pulse Ox O2 Delivery O2 Flow Rate FiO2 05/11/20 11:51 96.7 71 19 119/71 (87) 98 05/11/20 09:00 Room Air 05/11/20 08:00 98.1 80 20 117/67 (84) 96 05/11/20 08:00 105 05/11/20 04:00 63 05/11/20 04:00 97.9 68 18 117/67 (84) 96 05/11/20 00:00 97.9 66 18 108/65 (79) 95 05/11/20 00:00 68 05/10/20 21:00 Room Air 05/10/20 20:00 99.7 74 16 109/68 (82) 96 05/10/20 16:00 74 05/10/20 16:00 96.7 81 22 119/67 (84) 98 I&O Intake and Output 05/10/20 05/11/20 19:00 07:00 Intake Total 680.273 ml Output Total 1300 ml Balance -619.727 ml Intake Oral 260 ml IV Total 420.273 ml Output Urine Total 1300 ml # Voids 3 # Bowel Movements 2 Dressing: saturated Cardiovascular: RSR Respiratory: decreased breath sounds Abdomen: non-tender, present bowel sounds Extremities: no edema, no tenderness, no cyanosis Laboratory Tests Test 05/11/20 07:23 05/11/20 12:06 White Blood Count 1.8 K/UL (4.8-10.8) *L Red Blood Count 3.82 M/UL (4.70-6.10) L Hemoglobin 10.7 G/DL (14.2-18.0) L Hematocrit 34.7 % (42.0-52.0) L Mean Corpuscular Volume 91 FL (80-99) Mean Corpuscular Hemoglobin 28.1 PG (27.0-31.0) Mean Corpuscular Hemoglobin Concent 30.9 G/DL (32.0-36.0) L Red Cell Distribution Width 13.5 % (11.6-14.8) Platelet Count 220 K/UL (150-450) Mean Platelet Volume 5.6 FL (6.5-10.1) L Neutrophils (%) (Auto) % (45.0-75.0) Lymphocytes (%) (Auto) % (20.0-45.0) Monocytes (%) (Auto) % (1.0-10.0) Eosinophils (%) (Auto) % (0.0-3.0) Basophils (%) (Auto) % (0.0-2.0) Differential Total Cells Counted 100 Neutrophils % (Manual) 55 % (45-75) Lymphocytes % (Manual) 34 % (20-45) Monocytes % (Manual) 11 % (1-10) H Eosinophils % (Manual) 0 % (0-3) Basophils % (Manual) 0 % (0-2) Band Neutrophils 0 % (0-8) Platelet Estimate Adequate Platelet Morphology Normal Hypochromasia 1+ Sodium Level 133 MMOL/L (136-145) L Potassium Level 3.6 MMOL/L (3.5-5.1) Chloride Level 100 MMOL/L (98-107) Carbon Dioxide Level 25 MMOL/L (21-32) Anion Gap 8 mmol/L (5-15) Blood Urea Nitrogen 6 mg/dL (7-18) L Creatinine 0.9 MG/DL (0.55-1.30) Estimat Glomerular Filtration Rate > 60 mL/min (>60) Glucose Level 109 MG/DL (74-106) H Calcium Level 7.7 MG/DL (8.5-10.1) L Magnesium Level 1.7 MG/DL (1.8-2.4) L Vancomycin Level Trough 7.2 ug/mL (5.0-12.0) Plan Problems: (1) Hyponatremia (2) UTI (urinary tract infection) (3) COVID-19 (4) Abdominal pain Assessment & Plan: KUB noted likely constipated recommend bowel regimen hold on further imaging okay for diet activity as tolerated will follow with exam and recs thank you penile soft tissue pelvic swelling. likely seroma. does not seem to be abscess. will monitor toth causing breakdown of penile meatus chronic contractures Abdomen: Nonobstructive but nonspecific bowel gas pattern. Moderate to large amount of stool. No free air. Bones: Chronic appearing deformity of the proximal right femur. Soft tissues: Normal. IMPRESSION: Nonobstructive but nonspecific bowel gas pattern. Moderate to large amount of stool. Harry Brown May 11, 2020 13:22
--- NOTE | 2020-05-11 13:32 | Nephrology Progress Note ---
Assessment/Plan Plan #Hyponatremia- hypovolumic #COVID infection #UTI #HLD #HTN #h/o CVA #nonverbal #failure to thrive - IVF on D5NS - ID eval - on ceftriaxone - follow cx - monitor sodium - GI eval - swallow eval - pulmonary eval - monitor UOP - replete lytes prn Time spent 65min Subjective ROS Limited/Unobtainable: Yes Subjective sodium is slowly uptrending with hydration afebrile vitals stable Objective Objective Last 24 Hour Vital Signs Date Time Temp Pulse Resp B/P (MAP) Pulse Ox O2 Delivery O2 Flow Rate FiO2 05/11/20 11:51 96.7 71 19 119/71 (87) 98 05/11/20 09:00 Room Air 05/11/20 08:00 98.1 80 20 117/67 (84) 96 05/11/20 08:00 105 05/11/20 04:00 63 05/11/20 04:00 97.9 68 18 117/67 (84) 96 05/11/20 00:00 97.9 66 18 108/65 (79) 95 05/11/20 00:00 68 05/10/20 21:00 Room Air 05/10/20 20:00 99.7 74 16 109/68 (82) 96 05/10/20 16:00 74 05/10/20 16:00 96.7 81 22 119/67 (84) 98 Intake and Output 05/10/20 05/11/20 19:00 07:00 Intake Total 680.273 ml Output Total 1300 ml Balance -619.727 ml Intake Oral 260 ml IV Total 420.273 ml Output Urine Total 1300 ml # Voids 3 # Bowel Movements 2 Laboratory Tests 05/11/20 07:23: White Blood Count 1.8*L, Red Blood Count 3.82L, Hemoglobin 10.7L, Hematocrit 34.7L, Mean Corpuscular Volume 91, Mean Corpuscular Hemoglobin 28.1, Mean Corpuscular Hemoglobin Concent 30.9L, Red Cell Distribution Width 13.5, Platelet Count 220, Mean Platelet Volume 5.6L, Neutrophils (%) (Auto) , Lymphocytes (%) (Auto) , Monocytes (%) (Auto) , Eosinophils (%) (Auto) , Basophils (%) (Auto) , Differential Total Cells Counted 100, Neutrophils % (Manual) 55, Lymphocytes % (Manual) 34, Monocytes % (Manual) 11H, Eosinophils % (Manual) 0, Basophils % (Manual) 0, Band Neutrophils 0, Platelet Estimate Adequate, Platelet Morphology Normal, Hypochromasia 1+, Sodium Level 133L, Potassium Level 3.6, Chloride Level 100, Carbon Dioxide Level 25, Anion Gap 8, Blood Urea Nitrogen 6L, Creatinine 0.9, Estimat Glomerular Filtration Rate > 60, Glucose Level 109H, Calcium Level 7.7L, Magnesium Level 1.7L 05/11/20 12:06: Vancomycin Level Trough 7.2 Height (Feet): 5 Height (Inches): 10.00 Weight (Pounds): 132 Objective General Appearance: no apparent distress Lines, tubes and drains: peripheral HEENT: normocephalic, atraumatic Neck: non-tender Respiratory/Chest: chest wall non-tender, normal breath sounds Extremities: normal range of motion Skin Exam: normal pigmentation Barak Aranda M.D. May 11, 2020 13:32
[2020-05-11] MEDS ORDERED: Vancomycin 1 GM in NS 275 ML IVPB SCH (14:00)
[2020-05-11 16:00] VITALS: BP 120/71
--- NOTE | 2020-05-11 16:08 | Infectious Diseases Prog Note ---
Assessment/Plan Assessment/Plan ASSESSMENT AND PLAN: 1. gram + uti, sepsis, covid-19 infection, fevers, weakness, chest x-ray negative for pna sever leukopenia likely secondary to covid - augmentin po x 5 days - discontinue vancomycin and zosyn - monitor labs - monitor temperatures - clinically improved - please see orders - fevers improved - d/w RN 2. Hyponatremia. Continue IV fluids per Renal and Medicine. 3. The patient is anemic. 4. Possible hyperlipidemia or dyslipidemia. 5. CVA. 6. Weakness. 7. Nonverbal. 8. Hypertension. Blood pressure treatment per primary care team. 9. Renal insufficiency. 10. Skin care per protocol. 11. The patient has no known drug allergies. 12. Social history is negative. 13. Family history is noncontributory. 14. MAR is noted. 15. Case discussed with RN. 16. Continue treatment per primary consultants. Subjective Constitutional: Reports: fatigue, other - more alert ; Denies: fever HEENT: Denies: congestion Respiratory: Denies: shortness of breath Cardiovascular: Denies: chest pain Gastrointestinal/Abdominal: Denies: nausea, vomiting, diarrhea Genitourinary: Reports: other - + toth Neurologic: Reports: weakness, other - more alert Psychiatric: Reports: other - NA Skin: Denies: rash Hematologic: Denies: bleeding Musculoskeletal: Denies: pain Allergies: Coded Allergies: No Known Allergies (Unverified , 05/07/20) Objective Last 24 Hour Vital Signs Date Time Temp Pulse Resp B/P (MAP) Pulse Ox O2 Delivery O2 Flow Rate FiO2 05/11/20 12:00 66 05/11/20 11:51 96.7 71 19 119/71 (87) 98 05/11/20 09:00 Room Air 05/11/20 08:00 98.1 80 20 117/67 (84) 96 05/11/20 08:00 105 05/11/20 04:00 63 05/11/20 04:00 97.9 68 18 117/67 (84) 96 05/11/20 00:00 97.9 66 18 108/65 (79) 95 05/11/20 00:00 68 05/10/20 21:00 Room Air 05/10/20 20:00 99.7 74 16 109/68 (82) 96 05/10/20 16:00 74 05/10/20 16:00 96.7 81 22 119/67 (84 98 Height (Feet): 5 Height (Inches): 10.00 Weight (Pounds): 132 General Appearance: no acute distress HEENT: normocephalic, atraumatic, anicteric, mucous membranes moist Respiratory/Chest: normal breath sounds, no respiratory distress, no accessory muscle use, crackles/rales, rhonchi - bilaterally Cardiovascular: normal rate, regular rhythm, no gallop/murmur, no JVD Abdomen: normal bowel sounds, soft, non tender, no organomegaly, non distended Genitourinary: other - + toth - urine cloudy but less Extremities: no cyanosis Skin: no rash Neurologic/Psychiatric: manager generation II-XII grossly normal, alert, responsive Lymphatic: no neck adenopathy Musculoskeletal: no effusion Chest x-ray - 04/08/20 - Procedure: XRAY Chest 1v Indication: Reason For Exam: COUGH Technique: Single AP view of the chest. Comparison: Chest radiograph dated 05/07/2020 and 05/08/2020 Findings: Examination is limited due to overlying right arm shadow. The cardiomediastinal silhouette is unchanged in appearance. No new airspace consolidation. No new pleural effusion or pneumothorax. Redemonstration of right rib deformities. IMPRESSION: Limited examination due to overlying arm shadows. Within these limitations, no definite new airspace consolidation. Microbiology Date/Time Source Procedure Growth Status 05/09/20 12:00 Blood Blood Culture - Preliminary NO GROWTH AFTER 24 HOURS Resulted 05/07/20 18:40 Indwelling Cath Urine Culture - Final Enterococcus Faecalis Complete 05/07/20 13:20 Rectum VRE Culture - Final NO VANCOMYCIN RESISTANT ENTEROCOCCUS ... Complete 05/07/20 13:20 Nasal Nares MRSA Culture - Final NO METHICILLIN RESISTANT STAPH AUREUS... Complete Microbiology Date/Time Source Procedure Growth Status 05/09/20 12:00 Blood Blood Culture - Preliminary NO GROWTH AFTER 24 HOURS Resulted 05/09/20 11:50 Blood Blood Culture - Preliminary NO GROWTH AFTER 24 HOURS Resulted Laboratory Tests Test 05/11/20 07:23 05/11/20 12:06 White Blood Count 1.8 K/UL (4.8-10.8) *L Red Blood Count 3.82 M/UL (4.70-6.10) L Hemoglobin 10.7 G/DL (14.2-18.0) L Hematocrit 34.7 % (42.0-52.0) L Mean Corpuscular Volume 91 FL (80-99) Mean Corpuscular Hemoglobin 28.1 PG (27.0-31.0) Mean Corpuscular Hemoglobin Concent 30.9 G/DL (32.0-36.0) L Red Cell Distribution Width 13.5 % (11.6-14.8) Platelet Count 220 K/UL (150-450) Mean Platelet Volume 5.6 FL (6.5-10.1) L Neutrophils (%) (Auto) % (45.0-75.0) Lymphocytes (%) (Auto) % (20.0-45.0) Monocytes (%) (Auto) % (1.0-10.0) Eosinophils (%) (Auto) % (0.0-3.0) Basophils (%) (Auto) % (0.0-2.0) Differential Total Cells Counted 100 Neutrophils % (Manual) 55 % (45-75) Lymphocytes % (Manual) 34 % (20-45) Monocytes % (Manual) 11 % (1-10) H Eosinophils % (Manual) 0 % (0-3) Basophils % (Manual) 0 % (0-2) Band Neutrophils 0 % (0-8) Platelet Estimate Adequate Platelet Morphology Normal Hypochromasia 1+ Sodium Level 133 MMOL/L (136-145) L Potassium Level 3.6 MMOL/L (3.5-5.1) Chloride Level 100 MMOL/L (98-107) Carbon Dioxide Level 25 MMOL/L (21-32) Anion Gap 8 mmol/L (5-15) Blood Urea Nitrogen 6 mg/dL (7-18) L Creatinine 0.9 MG/DL (0.55-1.30) Estimat Glomerular Filtration Rate > 60 mL/min (>60) Glucose Level 109 MG/DL (74-106) H Calcium Level 7.7 MG/DL (8.5-10.1) L Magnesium Level 1.7 MG/DL (1.8-2.4) L Vancomycin Level Trough 7.2 ug/mL (5.0-12.0) Current Medications Medications (Trade) Dose Ordered Sig/Luis E Route PRN Reason Start Time Stop Time Status Last Admin Dose Admin Acetaminophen (Tylenol) 325 mg Q6H PRN RECTAL Temp >100.5 05/09/20 10:45 06/08/20 10:44 05/09/20 11:03 Acetaminophen (Tylenol) 650 mg Q6H PRN ORAL Temp >100.5 05/10/20 00:15 06/09/20 00:14 Atorvastatin Calcium (Lipitor) 80 mg BEDTIME ORAL 05/07/20 21:00 08/05/20 20:59 05/10/20 22:52 Bisacodyl (Dulcolax) 10 mg DAILYPRN PRN RECTAL Constipation 05/07/20 15:45 08/05/20 15:44 Bupropion HCl (Wellbutrin SR) 150 mg DAILY ORAL 05/08/20 11:00 06/07/20 10:59 05/11/20 10:13 Dextrose (Dextrose 50%) 25 ml Q30M PRN IV Hypoglycemia 05/07/20 15:45 08/05/20 15:44 Dextrose (Dextrose 50%) 50 ml Q30M PRN IV Hypoglycemia 05/07/20 15:45 08/05/20 15:44 Docusate Sodium (Colace) 100 mg TWICE A DAY ORAL 05/08/20 09:00 06/07/20 08:59 05/11/20 10:12 Dronabinol (Marinol) 2.5 mg BID ORAL 05/11/20 09:00 08/09/20 08:59 05/11/20 10:29 Heparin Sodium (Porcine) (Heparin 5000 units/ml) 5,000 units EVERY 12 HOURS SUBQ 05/08/20 09:00 06/22/20 08:59 05/10/20 22:54 Iron Sucrose 100 mg/Sodium Chloride 60 ml @ 240 mls/hr BEDTIME IVPB 05/10/20 21:00 05/14/20 21:14 05/10/20 22:59 Pantoprazole (Protonix) 40 mg DAILY IV 05/08/20 09:00 06/07/20 08:59 05/11/20 10:13 Piperacillin Sod/ Tazobactam Sod 3.375 gm/Dextrose 110 ml @ 27.5 mls/hr EVERY 8 HOURS IVPB 05/09/20 22:00 05/14/20 21:59 05/11/20 15:40 Polyethylene Glycol (Miralax) 17 gm BEDTIME ORAL 05/08/20 21:00 06/07/20 20:59 05/10/20 22:59 Potassium Chloride 10 meq/ Dextrose/Sodium Chloride 1,005 ml @ 75 mls/hr [id number] IV 05/08/20 08:00 05/12/20 02:00 05/10/20 13:15 Potassium Chloride 10 meq/ Dextrose/Sodium Chloride 1,005 ml @ 75 mls/hr [id number] IV 05/12/20 02:00 06/11/20 01:59 Vancomycin HCl (Vanco pharmacy to dose) 1 ea DAILY PRN MISC Per rx protocol 05/09/20 21:00 06/08/20 20:59 Vancomycin HCl 1 gm/Sodium Chloride 275 ml @ 183.708 mls/hr Q12HR@0200,1400 IVPB 05/11/20 14:00 05/16/20 13:59 05/11/20 14:14 Nickolas Goldstein MD May 11, 2020 16:08
--- NOTE | 2020-05-11 17:11 | NUR ---
CASE MANAGEMENT:REVIEW 05/11/20 SI: COVID PNA 98.1 80 20 117/67 96% ON RA WBC-1.8 IS: IVF+KCL @75/HR AUGMENTIN PO Q12 MARINOL PO BID IV VENOFER QHS IV PROTONIX QD HEPARIN SQ Q12 : TELEMETRY STATUS DCP: [facility]
--- NOTE | 2020-05-11 19:24 | NUR ---
NURSE NOTES: Pt received from CARO Babb alert and oriented x1, opens eyes to name. Pt answers by grunting or nodding head, nonverbal. Radiochemical Technician on - Sinus Rhythm. On room air with no s/s of acute distress noted. 16F toth patent and draining to straw-colored urine. Toth stabilizer on. Bed in lowest position, bed alarm on. Call light and belongings within reach.
[2020-05-11 20:00] VITALS: BP 136/77
[2020-05-11] MEDS: Iron Sucrose 100 MG in NS 55 ML IVPB SCH (21:56)
[2020-05-11] MEDS: Atorvastatin 80mg tab ORAL SCH (21:57)
[2020-05-11] MEDS: Augmentin 875mg Tab ORAL SCH (21:57)
[2020-05-11] MEDS: Miralax 17gm pkt ORAL SCH (21:57)
[2020-05-12] VITALS: BP 132/74
[2020-05-12 04:00] VITALS: BP 136/76
[2020-05-12 05:59] LABS: HEMATOCRIT 35.1 % (42.0-52.0); HEMOGLOBIN 11.1 G/DL (14.2-18.0); MEAN CORPUSCULAR VOLUME 90 FL (80-99); PLATELET COUNT 214 K/UL (150-450); RED BLOOD COUNT 3.91 M/UL (4.70-6.10); RED CELL DISTRIBUTION WIDTH 13.2 % (11.6-14.8); WHITE BLOOD COUNT 3.4 K/UL (4.8-10.8)
[2020-05-12 06:19] LABS: ANION GAP 8 mmol/L (5-15); BLOOD UREA NITROGEN 5 mg/dL (7-18); CALCIUM 7.8 MG/DL (8.5-10.1); CARBON DIOXIDE 24 MMOL/L (21-32); CHLORIDE 98 MMOL/L (98-107); CREATININE 0.9 MG/DL (0.55-1.30); POTASSIUM 3.6 MMOL/L (3.5-5.1); SODIUM 130 MMOL/L (136-145)
--- NOTE | 2020-05-12 06:33 | Hematology/Onc Progress Note ---
Assessment/Plan Assessment/Plan Assessment/Plan: # Leukopenia with hx of recent COVID-19 infection, pna --> continue ABX per id --> smear has been noted --> meds reviewed --> wbc 3.9-->2.4-->3.4 --> consider neupogen as needed # Anemia due to underlying chronic disease --> anemia panel reviewed --> also with hematuria --> hgb 11-->10.7-->11 # Respiratory alkalosis - on ABG --> No indication for dexamethasone or remdesivir at this time per ID --> per ID and pulm # Hyponatremia - Na 126 on admission --> per renal # Renal insufficiency --> Nephrology consult Dr. Aranda - BMP daily # UTI --> CTX per ID ABX augmentin # HTN # Dyslipidemia # Hx of CVA # Dvt ppx heparin sq Appreciate consultation and dw PCP Subjective Allergies: Coded Allergies: No Known Allergies (Unverified , 05/07/20) Subjective 05/12 no events, on abx, no bleeding, wbc is better, no night sweats Objective Objective Current Medications Medications (Trade) Dose Ordered Sig/Luis E Route PRN Reason Start Time Stop Time Status Last Admin Dose Admin Acetaminophen (Tylenol) 325 mg Q6H PRN RECTAL Temp >100.5 05/09/20 10:45 06/08/20 10:44 05/09/20 11:03 Acetaminophen (Tylenol) 650 mg Q6H PRN ORAL Temp >100.5 05/10/20 00:15 06/09/20 00:14 Amoxicillin/ Clavulanate Potassium (Augmentin) 875 mg EVERY 12 HOURS ORAL 05/11/20 21:00 05/18/20 20:59 05/11/20 21:57 Atorvastatin Calcium (Lipitor) 80 mg BEDTIME ORAL 05/07/20 21:00 08/05/20 20:59 05/11/20 21:57 Bisacodyl (Dulcolax) 10 mg DAILYPRN PRN RECTAL Constipation 05/07/20 15:45 08/05/20 15:44 Bupropion HCl (Wellbutrin SR) 150 mg DAILY ORAL 05/08/20 11:00 06/07/20 10:59 05/11/20 10:13 Dextrose (Dextrose 50%) 25 ml Q30M PRN IV Hypoglycemia 05/07/20 15:45 08/05/20 15:44 Dextrose (Dextrose 50%) 50 ml Q30M PRN IV Hypoglycemia 05/07/20 15:45 08/05/20 15:44 Docusate Sodium (Colace) 100 mg TWICE A DAY ORAL 05/08/20 09:00 06/07/20 08:59 05/11/20 17:42 Dronabinol (Marinol) 2.5 mg BID ORAL 05/11/20 09:00 08/09/20 08:59 05/11/20 17:42 Heparin Sodium (Porcine) (Heparin 5000 units/ml) 5,000 units EVERY 12 HOURS SUBQ 05/08/20 09:00 06/22/20 08:59 05/11/20 21:56 Iron Sucrose 100 mg/Sodium Chloride 60 ml @ 240 mls/hr BEDTIME IVPB 05/10/20 21:00 05/14/20 21:14 05/11/20 21:56 Pantoprazole (Protonix) 40 mg DAILY IV 05/08/20 09:00 06/07/20 08:59 05/11/20 10:13 Polyethylene Glycol (Miralax) 17 gm BEDTIME ORAL 05/08/20 21:00 06/07/20 20:59 05/11/20 21:57 Potassium Chloride 10 meq/ Dextrose/Sodium Chloride 1,005 ml @ 75 mls/hr [id number] IV 05/12/20 02:00 06/11/20 01:59 05/11/20 21:58 Last 24 Hour Vital Signs Date Time Temp Pulse Resp B/P (MAP) Pulse Ox O2 Delivery O2 Flow Rate FiO2 05/12/20 04:00 97.7 76 20 136/76 (96) 98 05/12/20 04:00 62 05/12/20 00:00 80 05/12/20 00:00 99.0 77 20 132/74 (93) 100 05/11/20 21:00 Room Air 05/11/20 20:00 99.5 75 20 136/77 (96) 97 05/11/20 20:00 78 05/11/20 16:00 96.7 71 20 120/71 (87) 98 05/11/20 16:00 62 11/18/20 12:00 66 05/11/20 11:51 96.7 71 19 119/71 (87) 98 05/11/20 09:00 Room Air 05/11/20 08:00 98.1 80 20 117/67 (84) 96 05/11/20 08:00 105 05/11/20 04:00 63 05/11/20 04:00 97.9 68 18 117/67 (84) 96 05/11/20 00:00 97.9 66 18 108/65 (79) 95 05/11/20 00:00 68 05/10/20 21:00 Room Air 05/10/20 20:00 99.7 74 16 109/68 (82) 96 05/10/20 16:00 74 05/10/20 16:00 96.7 81 22 119/67 (84) 98 05/10/20 12:00 96.8 71 21 118/64 (82) 97 05/10/20 12:00 76 05/10/20 09:00 Room Air 05/10/20 08:00 63 05/10/20 08:00 96.8 77 20 115/59 (77) 98 Intake and Output 05/11/20 05/12/20 19:00 07:00 Intake Total 195 ml 465 ml Output Total 1400 ml 800 ml Balance -1205 ml -335 ml Intake Oral 120 ml IV Total 75 ml 465 ml Output Urine Total 1400 ml 800 ml # Voids 3 1 # Bowel Movements 2 Labs Test 05/09/20 10:00 05/09/20 10:35 05/10/20 06:35 05/10/20 11:10 Stool Occult Blood Negative (NEGATIVE) Urine Color Yellow Urine Appearance Clear Urine pH 5 (4.5-8.0) Urine Specific [place] 1.015 (1.005-1.035) Urine Protein 1+ (NEGATIVE) Urine Glucose (UA) Negative (NEGATIVE) Urine Ketones Negative (NEGATIVE) Urine Blood 5+ (NEGATIVE) Urine Nitrite Negative (NEGATIVE) Urine Bilirubin Negative (NEGATIVE) Urine Urobilinogen Normal MG/DL (0.0-1.0) Urine Leukocyte Esterase 1+ (NEGATIVE) Urine RBC 15-20 /HPF (0 - 0) Urine WBC 0-2 /HPF (0 - 0) Urine Squamous Epithelial Cells Occasional /LPF Urine Bacteria Occasional /HPF (NONE) White Blood Count 2.5 K/UL (4.8-10.8) 2.4 K/UL (4.8-10.8) Red Blood Count 3.66 M/UL (4.70-6.10) 3.79 M/UL (4.70-6.10) Hemoglobin 10.4 G/DL (14.2-18.0) 10.7 G/DL (14.2-18.0) Hematocrit 33.1 % (42.0-52.0) 34.4 % (42.0-52.0) Mean Corpuscular Volume 90 FL (80-99) 91 FL (80-99) Mean Corpuscular Hemoglobin 28.3 PG (27.0-31.0) 28.3 PG (27.0-31.0) Mean Corpuscular Hemoglobin Concent 31.4 G/DL (32.0-36.0) 31.2 G/DL (32.0-36.0) Red Cell Distribution Width 13.4 % (11.6-14.8) 13.5 % (11.6-14.8) Platelet Count 202 K/UL (150-450) 208 K/UL (150-450) Mean Platelet Volume 4.7 FL (6.5-10.1) 4.7 FL (6.5-10.1) Neutrophils (%) (Auto) % (45.0-75.0) % (45.0-75.0) Lymphocytes (%) (Auto) % (20.0-45.0) % (20.0-45.0) Monocytes (%) (Auto) % (1.0-10.0) % (1.0-10.0) Eosinophils (%) (Auto) % (0.0-3.0) % (0.0-3.0) Basophils (%) (Auto) % (0.0-2.0) % (0.0-2.0) Differential Total Cells Counted 100 100 Neutrophils % (Manual) 63 % (45-75) 70 % (45-75) Lymphocytes % (Manual) 28 % (20-45) 20 % (20-45) Monocytes % (Manual) 9 % (1-10) 5 % (1-10) Eosinophils % (Manual) 0 % (0-3) 5 % (0-3) Basophils % (Manual) 0 % (0-2) 0 % (0-2) Band Neutrophils 0 % (0-8) 0 % (0-8) Platelet Estimate Adequate Decreased Platelet Morphology Normal Normal Hypochromasia 1+ Sodium Level 133 MMOL/L (136-145) Potassium Level 4.0 MMOL/L (3.5-5.1) Chloride Level 100 MMOL/L (98-107) Carbon Dioxide Level 25 MMOL/L (21-32) Anion Gap 8 mmol/L (5-15) Blood Urea Nitrogen 8 mg/dL (7-18) Creatinine 1.0 MG/DL (0.55-1.30) Estimat Glomerular Filtration Rate > 60 mL/min (>60) Glucose Level 115 MG/DL (74-106) Calcium Level 8.1 MG/DL (8.5-10.1) Phosphorus Level 2.4 MG/DL (2.5-4.9) Magnesium Level 1.8 MG/DL (1.8-2.4) Iron Level 12 ug/dL (50-175) Total Iron Binding Capacity 207 ug/dL (250-450) Percent Iron Saturation 6 % (15-50) Unsaturated Iron Binding 195 ug/dL (112-346) Total Bilirubin 0.2 MG/DL (0.2-1.0) Aspartate Amino Transf (AST/SGOT) 29 U/L (15-37) Alanine Aminotransferase (ALT/SGPT) 24 U/L (12-78) Alkaline Phosphatase 56 U/L (46-116) Total Protein 6.1 G/DL (6.4-8.2) Albumin 2.1 G/DL (3.4-5.0) Globulin 4.0 g/dL Albumin/Globulin Ratio 0.5 (1.0-2.7) Hepatitis A IgM Antibody Negative (Negative) Hepatitis B Surface Antigen Negative (Negative) Hepatitis B Core IgM Antibody Negative (Negative) Hepatitis C Antibody <0.1 s/co ratio HIV (1&2) Antibody Rapid Negative (NEGATIVE) Red Blood Cell Morphology Normal Test 05/11/20 07:23 05/11/20 12:06 05/12/20 05:00 White Blood Count 1.8 K/UL (4.8-10.8) 3.4 K/UL (4.8-10.8) Red Blood Count 3.82 M/UL (4.70-6.10) 3.91 M/UL (4.70-6.10) Hemoglobin 10.7 G/DL (14.2-18.0) 11.1 G/DL (14.2-18.0) Hematocrit 34.7 % (42.0-52.0) 35.1 % (42.0-52.0) Mean Corpuscular Volume 91 FL (80-99) 90 FL (80-99) Mean Corpuscular Hemoglobin 28.1 PG (27.0-31.0) 28.3 PG (27.0-31.0) Mean Corpuscular Hemoglobin Concent 30.9 G/DL (32.0-36.0) 31.5 G/DL (32.0-36.0) Red Cell Distribution Width 13.5 % (11.6-14.8) 13.2 % (11.6-14.8) Platelet Count 220 K/UL (150-450) 214 K/UL (150-450) Mean Platelet Volume 5.6 FL (6.5-10.1) 4.8 FL (6.5-10.1) Neutrophils (%) (Auto) % (45.0-75.0) % (45.0-75.0) Lymphocytes (%) (Auto) % (20.0-45.0) % (20.0-45.0) Monocytes (%) (Auto) % (1.0-10.0) % (1.0-10.0) Eosinophils (%) (Auto) % (0.0-3.0) % (0.0-3.0) Basophils (%) (Auto) % (0.0-2.0) % (0.0-2.0) Differential Total Cells Counted 100 Neutrophils % (Manual) 55 % (45-75) Lymphocytes % (Manual) 34 % (20-45) Monocytes % (Manual) 11 % (1-10) Eosinophils % (Manual) 0 % (0-3) Basophils % (Manual) 0 % (0-2) Band Neutrophils 0 % (0-8) Platelet Estimate Adequate Platelet Morphology Normal Hypochromasia 1+ Sodium Level 133 MMOL/L (136-145) 130 MMOL/L (136-145) Potassium Level 3.6 MMOL/L (3.5-5.1) 3.6 MMOL/L (3.5-5.1) Chloride Level 100 MMOL/L (98-107) 98 MMOL/L (98-107) Carbon Dioxide Level 25 MMOL/L (21-32) 24 MMOL/L (21-32) Anion Gap 8 mmol/L (5-15) 8 mmol/L (5-15) Blood Urea Nitrogen 6 mg/dL (7-18) 5 mg/dL (7-18) Creatinine 0.9 MG/DL (0.55-1.30) 0.9 MG/DL (0.55-1.30) Estimat Glomerular Filtration Rate > 60 mL/min (>60) > 60 mL/min (>60) Glucose Level 109 MG/DL (74-106) 95 MG/DL (74-106) Calcium Level 7.7 MG/DL (8.5-10.1) 7.8 MG/DL (8.5-10.1) Magnesium Level 1.7 MG/DL (1.8-2.4) Vancomycin Level Trough 7.2 ug/mL (5.0-12.0) Height (Feet): 5 Height (Inches): 10.00 Weight (Pounds): 132 Objective Physical Exam General Appearance: no apparent distress, thin, nv++ HEENT: normocephalic, atraumatic Neck: non-tender, supple, normal inspection Respiratory/Chest: lungs clear, normal breath sounds Cardiovascular/Chest: normal rate, regular rhythm, no gallop/murmur Abdomen: soft, no organomegaly Extremities: other - severe contractures ++ Skin Exam: normal pigmentation Neurologic: motor weakness Musculoskeletal: atrophy Gu: +Shaji Pittman MD May 12, 2020 06:33
--- NOTE | 2020-05-12 07:17 | NUR ---
NURSE HAND-OFF REPORT: Important Events on Shift: Pt had soft brown BM x1. Gregory catheter draining to straw-colored urine. Afebrile, VS WNL. Patient Status: Stable Diet: regular, pureed moist, NTL Pending Orders: n/a Pending Results/Labs: n/a Pending MD notification: n/a Latest Vital Signs: Temperature 97.7 , Pulse 62 , B/P 136 /76 , Respiratory Rate 20 , O2 SAT 98 , Room Air, O2 Flow Rate . Vital Sign Comment: WNL EKG Rhythm: Sinus Rhythm Rhythm change?: N MD Notified?: - MD Response: Latest Hankins Fall Score: 55 Fall Risk: High Risk Safety Measures: Call light Within Reach, Bed Alarm Zone 1, Side Rails Side Rails x3, Bed position Low and Locked. Fall Precautions: Yes Yellow Socks Yellow Gown Door Sign Patient Fall Education Report given to CARO Babb.
--- NOTE | 2020-05-12 07:56 | NUR ---
NURSE NOTES: Report received from [place] RN. Pt is awake and only able to note incomprehensible sounds. on room air with no signs of resp distress, sob or pain. Pt is on potline monitor with SR noted. pt is afebrile. IV on left FA patent and infusing D5NS +10KCL @ 75ml/hr. Pt is incontinent. Bed low and locked, siderails up x2, call light placed within reach and instructed to call nurse for assistance. Will continue with plan of care.
[2020-05-12 08:00] VITALS: BP 137/78
[2020-05-12] MEDS: BuPROPion SR 150mg tab ORAL SCH (08:59)
[2020-05-12] MEDS: Pantoprazole Inj IV SCH (08:59)
[2020-05-12] MEDS: Docusate 100mg cap ORAL SCH ×2 (08:59→17:13)
[2020-05-12] MEDS: Dronabinol 2.5mg Cap ORAL SCH ×2 (08:59→17:13)
[2020-05-12] MEDS: Augmentin 875mg Tab ORAL SCH ×2 (08:59→21:55)
[2020-05-12] MEDS: Heparin 5000 units/ml inj SUBQ SCH ×2 (09:00→21:55)
--- NOTE | 2020-05-12 10:17 | Nephrology Progress Note ---
Assessment/Plan Plan #Hyponatremia- hypovolumic #COVID infection #UTI #HLD #HTN #h/o CVA #nonverbal #failure to thrive -GI eval for consideration of PEG PLACEMENT - IVF on D5NS for now - calorie count - consider PEG - ID eval - antibiotics per ID - follow cx - monitor sodium - GI eval - swallow eval - pulmonary eval - monitor UOP - replete lytes prn Subjective ROS Limited/Unobtainable: Yes Subjective GI eval for consideration of PEG PLACEMENT sodium 130 today mag low repleted afebrile vitals stable Objective Objective Last 24 Hour Vital Signs Date Time Temp Pulse Resp B/P (MAP) Pulse Ox O2 Delivery O2 Flow Rate FiO2 05/12/20 04:00 97.7 76 20 136/76 (96) 98 05/12/20 04:00 62 05/12/20 00:00 80 05/12/20 00:00 99.0 77 20 132/74 (93) 100 05/11/20 21:00 Room Air 05/11/20 20:00 99.5 75 20 136/77 (96) 97 05/11/20 20:00 78 05/11/20 16:00 96.7 71 20 120/71 (87) 98 05/11/20 16:00 62 05/11/20 12:00 66 05/11/20 11:51 96.7 71 19 119/71 (87) 98 Intake and Output 05/11/20 05/12/20 19:00 07:00 Intake Total 195 ml 990 ml Output Total 1400 ml 800 ml Balance -1205 ml 190 ml Intake Oral 120 ml IV Total 75 ml 990 ml Output Urine Total 1400 ml 800 ml # Voids 3 1 # Bowel Movements 2 Laboratory Tests 05/11/20 12:06: Vancomycin Level Trough 7.2 05/12/20 05:00: White Blood Count 3.4#L, Red Blood Count 3.91L, Hemoglobin 11.1L, Hematocrit 35.1L, Mean Corpuscular Volume 90, Mean Corpuscular Hemoglobin 28.3, Mean Corpuscular Hemoglobin Concent 31.5L, Red Cell Distribution Width 13.2, Platelet Count 214, Mean Platelet Volume 4.8L, Neutrophils (%) (Auto) , Lymphocytes (%) (Auto) , Monocytes (%) (Auto) , Eosinophils (%) (Auto) , Basophils (%) (Auto) , Neutrophils % (Manual) [Pending], Lymphocytes % (Manual) [Pending], Platelet Estimate [Pending], Platelet Morphology [Pending], Sodium Level 130L, Potassium Level 3.6, Chloride Level 98, Carbon Dioxide Level 24, Anion Gap 8, Blood Urea Nitrogen 5L, Creatinine 0.9, Estimat Glomerular Filtration Rate > 60, Glucose Level 95, Calcium Level 7.8L, Magnesium Level 1.7L Height (Feet): 5 Height (Inches): 10.00 Weight (Pounds): 132 Objective General Appearance: no apparent distress Lines, tubes and drains: peripheral HEENT: normocephalic, atraumatic Neck: non-tender Respiratory/Chest: chest wall non-tender, normal breath sounds Extremities: normal range of motion Skin Exam: normal pigmentation Barak Aranda M.D. May 12, 2020 10:17
--- NOTE | 2020-05-12 10:48 | NUR ---
RD ASSESSMENT & RECOMMENDATIONS SEE CARE ACTIVITY FOR COMPLETE ASSESSMENT NIKOLAS COUNT X 48 HRS (05/10 -05/12) COMPLETED. Incomplete data, 4 out of 6 meal tickets available for review. (05/10) Lunch: 20% chicken soup, 100% mashed potatoes, 100% pureed broccoli, unknown amount of fish and pudding Dinner: ~250kcal 75% chicken, 100% carrots, 50% pureed bread, (05/11) Breakfast: ~130kcal 80% cream of wheat, 30% eggs, 25% pureed bread Lunch: ~120kcal 20% aravind soup, 50% chicken pureed, 20% carrots puree Dinner : meal ticket missing, 50% per EMR (05/12) B meal ticket missing Incomplete data to assess exact kcal intake in the last 48 hrs. Pt appears to have fair intake of meals at this time. Per TURN MACHINE OPERATOR, did not feed pt this AM, but when fed pt yesterday, pt w/ overall good acceptance of meals, needs to be fed. Will add Ensure Enlive TID w/ meals (350kcal/20g prot each) to help increase kcal/pro intake. Rec to liberalize diet to regular for improved food acceptance and cont Marinol to help improve appetite. DAILY ESTIMATED NEEDS: Needs based on Pulmonary 60kg 25-35 kcals/kg 7070-6467 total kcals 1-1.5 g protein/kg 60-90 g total protein 25-30 mL/kg 2488-2587 total fluid mLs NUTRITION DIAGNOSIS: Swallowing difficulty r/t h/o CVA, as evidenced by pt is non verbal, seen by YOLK SPRAY DRIER w/ rec for pureed moist w/ NTL. CURRENT DIET:cardiac/ pureed w/ NTL PO DIET RECOMMENDATIONS: Liberalized Regular diet/ texture per YOLK SPRAY DRIER ADDITIONAL RECOMMENDATIONS: 1) Add Ensure Enlive w/ meals w/ diet order 2) Nikolas Count x 48 hrs completed- incomplete data fair/variable intake at this time rec liberalized regular diet, add Ensure Enlive TID w/ meals MVI x 1 as supplement, continue Marinol as per MD 3) Monitor lytes, replete as needed (low Na, phos, and mag) 4) Daily calibrated bedscale wt
--- NOTE | 2020-05-12 10:57 | Pulmonology Progress Note ---
Subjective ROS Limited/Unobtainable: Yes Interval Events: None new Constitutional: Reports: fatigue, other - more alert ; Denies: fever HEENT: Repors: no symptoms Respiratory: Reports: no symptoms Cardiovascular: Reports: no symptoms Gastrointestinal/Abdominal: Denies: nausea, vomiting, diarrhea Psychiatric: Reports: other - NA Skin: Denies: rash Musculoskeletal: Denies: pain Allergies: Coded Allergies: No Known Allergies (Unverified , 05/07/20) Objective Last 24 Hour Vital Signs Date Time Temp Pulse Resp B/P (MAP) Pulse Ox O2 Delivery O2 Flow Rate FiO2 05/12/20 08:00 78 05/12/20 08:00 98.9 70 18 137/78 (97) 97 05/12/20 04:00 97.7 76 20 136/76 (96) 98 05/12/20 04:00 62 05/12/20 00:00 80 05/12/20 00:00 99.0 77 20 132/74 (93) 100 05/11/20 21:00 Room Air 05/11/20 20:00 99.5 75 20 136/77 (96) 97 05/11/20 20:00 78 05/11/20 16:00 96.7 71 20 120/71 (87) 98 05/11/20 16:00 62 05/11/20 12:00 66 05/11/20 11:51 96.7 71 19 119/71 (87) 98 Intake and Output 05/11/20 05/12/20 19:00 07:00 Intake Total 195 ml 990 ml Output Total 1400 ml 800 ml Balance -1205 ml 190 ml Intake Oral 120 ml IV Total 75 ml 990 ml Output Urine Total 1400 ml 800 ml # Voids 3 1 # Bowel Movements 2 General Appearance: no acute distress HEENT: normocephalic Respiratory: chest wall non-tender, lungs clear Cardiovascular: normal peripheral pulses Abdomen: normal bowel sounds Microbiology Date/Time Source Procedure Growth Status 05/09/20 12:00 Blood Blood Culture - Preliminary NO GROWTH AFTER 24 HOURS Resulted 05/09/20 11:50 Blood Blood Culture - Preliminary NO GROWTH AFTER 24 HOURS Resulted Laboratory Tests 05/11/20 12:06: Vancomycin Level Trough 7.2 05/12/20 05:00: White Blood Count 3.4#L, Red Blood Count 3.91L, Hemoglobin 11.1L, Hematocrit 35.1L, Mean Corpuscular Volume 90, Mean Corpuscular Hemoglobin 28.3, Mean Corpuscular Hemoglobin Concent 31.5L, Red Cell Distribution Width 13.2, Platelet Count 214, Mean Platelet Volume 4.8L, Neutrophils (%) (Auto) , Lymphocytes (%) (Auto) , Monocytes (%) (Auto) , Eosinophils (%) (Auto) , Basophils (%) (Auto) , Differential Total Cells Counted 100, Neutrophils % (Manual) 81H, Lymphocytes % (Manual) 14L, Monocytes % (Manual) 4, Eosinophils % (Manual) 1, Basophils % (Manual) 0, Band Neutrophils 0, Platelet Estimate Adequate, Platelet Morphology Normal, Hypochromasia 1+, Sodium Level 130L, Potassium Level 3.6, Chloride Level 98, Carbon Dioxide Level 24, Anion Gap 8, Blood Urea Nitrogen 5L, Creatinine 0.9, Estimat Glomerular Filtration Rate > 60, Glucose Level 95, Calcium Level 7.8L, Magnesium Level 1.7L Current Medications Medications (Trade) Dose Ordered Sig/Luis E Route PRN Reason Start Time Stop Time Status Last Admin Dose Admin Acetaminophen (Tylenol) 325 mg Q6H PRN RECTAL Temp >100.5 05/09/20 10:45 06/08/20 10:44 05/09/20 11:03 Acetaminophen (Tylenol) 650 mg Q6H PRN ORAL Temp >100.5 05/10/20 00:15 06/09/20 00:14 Amoxicillin/ Clavulanate Potassium (Augmentin) 875 mg EVERY 12 HOURS ORAL 05/11/20 21:00 05/18/20 20:59 05/12/20 08:59 Atorvastatin Calcium (Lipitor) 80 mg BEDTIME ORAL 05/07/20 21:00 08/05/20 20:59 05/11/20 21:57 Bisacodyl (Dulcolax) 10 mg DAILYPRN PRN RECTAL Constipation 05/07/20 15:45 08/05/20 15:44 Bupropion HCl (Wellbutrin SR) 150 mg DAILY ORAL 05/08/20 11:00 06/07/20 10:59 05/12/20 08:59 Dextrose (Dextrose 50%) 25 ml Q30M PRN IV Hypoglycemia 05/07/20 15:45 08/05/20 15:44 Dextrose (Dextrose 50%) 50 ml Q30M PRN IV Hypoglycemia 05/07/20 15:45 08/05/20 15:44 Docusate Sodium (Colace) 100 mg TWICE A DAY ORAL 05/08/20 09:00 06/07/20 08:59 05/12/20 08:59 Dronabinol (Marinol) 2.5 mg BID ORAL 05/11/20 09:00 08/09/20 08:59 05/12/20 08:59 Heparin Sodium (Porcine) (Heparin 5000 units/ml) 5,000 units EVERY 12 HOURS SUBQ 05/08/20 09:00 06/22/20 08:59 05/11/20 21:56 Iron Sucrose 100 mg/Sodium Chloride 60 ml @ 240 mls/hr BEDTIME IVPB 05/10/20 21:00 05/14/20 21:14 05/11/20 21:56 Magnesium Sulfate 100 ml @ 100 mls/hr Q1H IVPB 05/12/20 10:30 05/12/20 12:29 Pantoprazole (Protonix) 40 mg DAILY IV 05/08/20 09:00 06/07/20 08:59 05/12/20 08:59 Polyethylene Glycol (Miralax) 17 gm BEDTIME ORAL 05/08/20 21:00 06/07/20 20:59 05/11/20 21:57 Potassium Chloride 10 meq/ Dextrose/Sodium Chloride 1,005 ml @ 75 mls/hr [id number] IV 05/12/20 02:00 06/11/20 01:59 05/11/20 21:58 Assessment/Plan Assessment/Plan IMPRESSION: 1. COVID-19 pneumonia. 2. Hyponatremia. 3. CVA. 4. Hyperlipidemia. DISCUSSION: The patient is saturating well on room air. I would recommend holding off on further therapies for COVID-19 pneumonia as he is not hypoxic. Abx per ID I will follow as wood crew supervisor. No new recommendations. Isiah Coffey Omar Syed MD May 12, 2020 10:57
[2020-05-12 11:31] VITALS: BP 128/70
--- NOTE | 2020-05-12 11:43 | General Progress Note ---
Subjective ROS Limited/Unobtainable: Yes - Unable to obtain due to patient's mental mental status, nonverbal, does not follow answering questions Allergies: Coded Allergies: No Known Allergies (Unverified , 05/07/20) Subjective No acute events overnight. T resting comfortably in bed, no acute distress. Contractures noted. WBC elevated today. Objective Last 24 Hour Vital Signs Date Time Temp Pulse Resp B/P (MAP) Pulse Ox O2 Delivery O2 Flow Rate FiO2 05/12/20 11:31 97.9 72 20 128/70 (89) 96 05/12/20 09:00 Room Air 05/12/20 08:00 78 05/12/20 08:00 98.9 70 18 137/78 (97) 97 05/12/20 04:00 97.7 76 20 136/76 (96) 98 05/12/20 04:00 62 05/12/20 00:00 80 05/12/20 00:00 99.0 77 20 132/74 (93) 100 05/11/20 21:00 Room Air 05/11/20 20:00 99.5 75 20 136/77 (96) 97 05/11/20 20:00 78 05/11/20 16:00 96.7 71 20 120/71 (87) 98 05/11/20 16:00 62 05/11/20 12:00 66 05/11/20 11:51 96.7 71 19 119/71 (87) 98 Intake and Output 05/11/20 05/12/20 19:00 07:00 Intake Total 195 ml 990 ml Output Total 1400 ml 800 ml Balance -1205 ml 190 ml Intake Oral 120 ml IV Total 75 ml 990 ml Output Urine Total 1400 ml 800 ml # Voids 3 1 # Bowel Movements 2 Laboratory Tests 05/11/20 12:06: Vancomycin Level Trough 7.2 05/12/20 05:00: White Blood Count 3.4#L, Red Blood Count 3.91L, Hemoglobin 11.1L, Hematocrit 35.1L, Mean Corpuscular Volume 90, Mean Corpuscular Hemoglobin 28.3, Mean Corpu scular Hemoglobin Concent 31.5L, Red Cell Distribution Width 13.2, Platelet Count 214, Mean Platelet Volume 4.8L, Neutrophils (%) (Auto) , Lymphocytes (%) (Auto) , Monocytes (%) (Auto) , Eosinophils (%) (Auto) , Basophils (%) (Auto) , Differential Total Cells Counted 100, Neutrophils % (Manual) 81H, Lymphocytes % (Manual) 14L, Monocytes % (Manual) 4, Eosinophils % (Manual) 1, Basophils % (Manual) 0, Band Neutrophils 0, Platelet Estimate Adequate, Platelet Morphology Normal, Hypochromasia 1+, Sodium Level 130L, Potassium Level 3.6, Chloride Level 98, Carbon Dioxide Level 24, Anion Gap 8, Blood Urea Nitrogen 5L, Creatinine 0.9, Estimat Glomerular Filtration Rate > 60, Glucose Level 95, Calcium Level 7.8L, Magnesium Level 1.7L Height (Feet): 5 Height (Inches): 10.00 Weight (Pounds): 132 General Appearance: no apparent distress, alert, confused EENT: PERRL/EOMI Neck: non-tender, supple Cardiovascular: normal rate, regular rhythm, no JVD Respiratory/Chest: lungs clear, normal breath sounds, respiratory distress Abdomen: non tender, soft Extremities: other - Upper extremity and lower extremity contractures Edema: no edema noted Arm (L), no edema noted Arm (R), no edema noted Leg (L), no edema noted Leg (R), no edema noted Pedal (L), no edema noted Pedal (R), no edema noted Generalized Neurologic: card tender II-XII grossly normal, alert Skin: normal pigmentation, warm/dry Assessment/Plan Assessment/Plan: Mr. Kovacs is a 64-year-old male past medical history of hypertension, CVA nonverbal at baseline, renal insufficiency who was brought in from [facility] for hyponatremia. He recently tested positive for COVID-19. Patient is nonverbal and unable to provide any history. # Hypovolemic hyponatremia 2/2 poor oral intakedowntrending today # COVID-19 infection # UTI 2/2 Enterococcus # Respiratory alkalosis - on ABG # Leukopenia likely secondary to viral infectionworsening # Normocytic anemia likely secondary to ACD # DURGA 2/2 prerenal azotemia # Essential hypertension # ?Chronic encephalopathy # Hyperlipidemia # History of CVA # Nonverbal P: Hemodynamically stable Saturating well on room air, monitor for increased O2 support No indications of dexamethasone, remdesivir Started on Augmentin per ID Urine cultures positive for Enterococcus, defer antibiotics to ID Persistent no fevers Leukopenia to improve today IVF Monitor sodium levels Monitor renal function Monitor electrolytes replace as needed Continue home statin Continue home Wellbutrin - Pulmonary consult Dr. Gann, recs appreciated - ID consult Dr. Hewitt, recs appreciated Consult Dr. Haji, heme-onc recs appreciated - Nephrology consult Dr. Aranda, recs appreciated CM CODE: Full Diet: Cardiac DVT: Heparin 5000 BUD Dispo: Possible DC back to SNF tomorrow Time spent on this encounter was 40 minutes which included 24 minutes of counseling and care coordination. I discussed with the nurse at bedside. Time of note may not reflect time patient was seen. Marcell Varma D.O May 12, 2020 11:43
--- NOTE | 2020-05-12 12:45 | Surgery Progress Note ---
Surgery Progress Note Subjective Symptoms: improved, tolerating diet, passing flatus, BM Objective Last 24 Hour Vital Signs Date Time Temp Pulse Resp B/P (MAP) Pulse Ox O2 Delivery O2 Flow Rate FiO2 05/12/20 11:31 97.9 72 20 128/70 (89) 96 05/12/20 09:00 Room Air 05/12/20 08:00 78 05/12/20 08:00 98.9 70 18 137/78 (97) 97 05/12/20 04:00 97.7 76 20 136/76 (96) 98 05/12/20 04:00 62 05/12/20 00:00 80 05/12/20 00:00 99.0 77 20 132/74 (93) 100 05/11/20 21:00 Room Air 05/11/20 20:00 99.5 75 20 136/77 (96) 97 05/11/20 20:00 78 05/11/20 16:00 96.7 71 20 120/71 (87) 98 05/11/20 16:00 62 I&O Intake and Output 05/11/20 05/12/20 19:00 07:00 Intake Total 195 ml 990 ml Output Total 1400 ml 800 ml Balance -1205 ml 190 ml Intake Oral 120 ml IV Total 75 ml 990 ml Output Urine Total 1400 ml 800 ml # Voids 3 1 # Bowel Movements 2 Dressing: saturated Cardiovascular: RSR Respiratory: decreased breath sounds Abdomen: soft, non-tender, present bowel sounds Extremities: no tenderness, no cyanosis Laboratory Tests Test 05/12/20 05:00 White Blood Count 3.4 K/UL (4.8-10.8) #L Red Blood Count 3.91 M/UL (4.70-6.10) L Hemoglobin 11.1 G/DL (14.2-18.0) L Hematocrit 35.1 % (42.0-52.0) L Mean Corpuscular Volume 90 FL (80-99) Mean Corpuscular Hemoglobin 28.3 PG (27.0-31.0) Mean Corpuscular Hemoglobin Concent 31.5 G/DL (32.0-36.0) L Red Cell Distribution Width 13.2 % (11.6-14.8) Platelet Count 214 K/UL (150-450) Mean Platelet Volume 4.8 FL (6.5-10.1) L Neutrophils (%) (Auto) % (45.0-75.0) Lymphocytes (%) (Auto) % (20.0-45.0) Monocytes (%) (Auto) % (1.0-10.0) Eosinophils (%) (Auto) % (0.0-3.0) Basophils (%) (Auto) % (0.0-2.0) Differential Total Cells Counted 100 Neutrophils % (Manual) 81 % (45-75) H Lymphocytes % (Manual) 14 % (20-45) L Monocytes % (Manual) 4 % (1-10) Eosinophils % (Manual) 1 % (0-3) Basophils % (Manual) 0 % (0-2) Band Neutrophils 0 % (0-8) Platelet Estimate Adequate Platelet Morphology Normal Hypochromasia 1+ Sodium Level 130 MMOL/L (136-145) L Potassium Level 3.6 MMOL/L (3.5-5.1) Chloride Level 98 MMOL/L (98-107) Carbon Dioxide Level 24 MMOL/L (21-32) Anion Gap 8 mmol/L (5-15) Blood Urea Nitrogen 5 mg/dL (7-18) L Creatinine 0.9 MG/DL (0.55-1.30) Estimat Glomerular Filtration Rate > 60 mL/min (>60) Glucose Level 95 MG/DL (74-106) Calcium Level 7.8 MG/DL (8.5-10.1) L Magnesium Level 1.7 MG/DL (1.8-2.4) L Plan Problems: (1) Hyponatremia (2) UTI (urinary tract infection) (3) COVID-19 (4) Abdominal pain Assessment & Plan: KUB noted likely constipated recommend bowel regimen hold on further imaging okay for diet activity as tolerated will follow with exam and recs thank you penile soft tissue pelvic swelling. likely seroma. does not seem to be abscess. will monitor toth causing breakdown of penile meatus chronic contractures Abdomen: Nonobstructive but nonspecific bowel gas pattern. Moderate to large amount of stool. No free air. Bones: Chronic appearing deformity of the proximal right femur. Soft tissues: Normal. IMPRESSION: Nonobstructive but nonspecific bowel gas pattern. Moderate to large amount of stool. Harry Brown May 12, 2020 12:45
--- NOTE | 2020-05-12 13:19 | General Progress Note ---
Subjective ROS Limited/Unobtainable: No Allergies: Coded Allergies: No Known Allergies (Unverified , 05/07/20) Objective Last 24 Hour Vital Signs Date Time Temp Pulse Resp B/P (MAP) Pulse Ox O2 Delivery O2 Flow Rate FiO2 05/12/20 12:00 70 05/12/20 11:31 97.9 72 20 128/70 (89) 96 05/12/20 09:00 Room Air 05/12/20 08:00 78 05/12/20 08:00 98.9 70 18 137/78 (97) 97 05/12/20 04:00 97.7 76 20 136/76 (96) 98 05/12/20 04:00 62 05/12/20 00:00 80 05/12/20 00:00 99.0 77 20 132/74 (93) 100 05/11/20 21:00 Room Air 05/11/20 20:00 99.5 75 20 136/77 (96) 97 05/11/20 20:00 78 05/11/20 16:00 96.7 71 20 120/71 (87) 98 05/11/20 16:00 62 Intake and Output 05/11/20 05/12/20 19:00 07:00 Intake Total 195 ml 990 ml Output Total 1400 ml 800 ml Balance -1205 ml 190 ml Intake Oral 120 ml IV Total 75 ml 990 ml Output Urine Total 1400 ml 800 ml # Voids 3 1 # Bowel Movements 2 Laboratory Tests 05/12/20 05:00: White Blood Count 3.4#L, Red Blood Count 3.91L, Hemoglobin 11.1L, Hematocrit 35.1L, Mean Corpuscular Volume 90, Mean Corpuscular Hemoglobin 28.3, Mean Corpuscular Hemoglobin Concent 31.5L, Red Cell Distribution Width 13.2, Platelet Count 214, Mean Platelet Volume 4.8L, Neutrophils (%) (Auto) , Lymphocytes (%) (Auto) , Monocytes (%) (Auto) , Eosinophils (%) (Auto) , Basophils (%) (Auto) , Differential Total Cells Counted 100, Neutrophils % (Manual) 81H, Lymphocytes % (Manual) 14L, Monocytes % (Manual) 4, Eosinophils % (Manual) 1, Basophils % (Manual) 0, Band Neutrophils 0, Platelet Estimate Adequate, Platelet Morphology Normal, Hypochromasia 1+, Sodium Level 130L, Potassium Level 3.6, Chloride Level 98, Carbon Dioxide Level 24, Anion Gap 8, Blood Urea Nitrogen 5L, Creatinine 0.9, Estimat Glomerular Filtration Rate > 60, Glucose Level 95, Calcium Level 7.8L, Magnesium Level 1.7L Height (Feet): 5 Height (Inches): 10.00 Weight (Pounds): 132 General Appearance: no apparent distress EENT: normal ENT inspection Neck: supple Cardiovascular: normal rate Respiratory/Chest: decreased breath sounds Abdomen: normal bowel sounds, non tender, soft Extremities: non-tender Assessment/Plan Assessment/Plan: 1. Pneumonia. 2. Hyponatremia. 3. UTI. 4. Constipation. 5. Normocytic anemia. 6. History of CVA. 7. History of Covid 8. History of hypercholesteremia. 9. History of BPH. bowel regimen stable H&H stool ob neg passed swallow eval on marinol hematology in put appreciated calorie count iv iron repeat labs will fu Alejandro Jimenez MD May 12, 2020 13:19
[2020-05-12 16:00] VITALS: BP 138/75
[2020-05-12 20:00] VITALS: BP 138/80
--- NOTE | 2020-05-12 20:13 | NUR ---
NURSE NOTES: Report received from Holley ELIZONDO. Patient is noted to be nonverbal but is awake and alert x 1. Patient makes eye contact when name is stated and grunts. Patient is noted to be on contact and droplet isolation due to testing positive for Covid 19. Patient is noted to be on room air, patient does not appear to be in respiratory distress at this time. Patient is noted to be contracted likely related to previous CVA. Patient is noted to have left forearm 20 anna marie IV access with fluids running per MD orders. Bed is locked, alarmed, and in lowest position. Will continue to follow plan of care.
[2020-05-12] MEDS: Atorvastatin 80mg tab ORAL SCH (21:55)
[2020-05-12] MEDS: Iron Sucrose 100 MG in NS 55 ML IVPB SCH (21:55)
[2020-05-12] MEDS: Miralax 17gm pkt ORAL SCH (21:55)
[2020-05-13] VITALS: BP 136/82
[2020-05-13 04:00] VITALS: BP 128/83
[2020-05-13 07:20] LABS: HEMATOCRIT 33.8 % (42.0-52.0); HEMOGLOBIN 10.7 G/DL (14.2-18.0); MEAN CORPUSCULAR VOLUME 90 FL (80-99); PLATELET COUNT 200 K/UL (150-450); RED BLOOD COUNT 3.74 M/UL (4.70-6.10); RED CELL DISTRIBUTION WIDTH 13.8 % (11.6-14.8); WHITE BLOOD COUNT 2.9 K/UL (4.8-10.8)
--- NOTE | 2020-05-13 07:59 | NUR ---
NURSE HAND-OFF REPORT: Important Events on Shift: Patient in stable condition. Patient Status: full code Diet: cardiac puree moist crush meds Pending Orders: none Pending Results/Labs:none Pending MD notification:none Latest Vital Signs: Temperature 98.8 , Pulse 76 , B/P 128 /83 , Respiratory Rate 20 , O2 SAT 96 , Room Air, O2 Flow Rate . Vital Sign Comment: within normal limits. EKG Rhythm: Sinus Rhythm Rhythm change?: N MD Notified?: - MD Response: Latest Hankins Fall Score: 55 Fall Risk: High Risk Safety Measures: Call light Within Reach, Bed Alarm Zone 1, Side Rails Side Rails x3, Bed position Low and Locked. Fall Precautions: Yellow Socks Yellow Gown Door Sign Patient Fall Education Report given to Nehemiah ELIZONDO
[2020-05-13 08:00] VITALS: BP 128/83
[2020-05-13 08:00] LABS: ANION GAP 6 mmol/L (5-15); BLOOD UREA NITROGEN 4 mg/dL (7-18); CALCIUM 7.6 MG/DL (8.5-10.1); CARBON DIOXIDE 25 MMOL/L (21-32); CHLORIDE 99 MMOL/L (98-107); CREATININE 0.9 MG/DL (0.55-1.30); PHOSPHORUS 1.8 MG/DL (2.5-4.9); POTASSIUM 4.1 MMOL/L (3.5-5.1); SODIUM 130 MMOL/L (136-145)
[2020-05-13] MEDS: Heparin 5000 units/ml inj SUBQ SCH ×2 (08:59→22:32)
[2020-05-13] MEDS: Dronabinol 2.5mg Cap ORAL SCH ×2 (09:01→18:59)
[2020-05-13] MEDS: Augmentin 875mg Tab ORAL SCH ×2 (09:01→22:05)
[2020-05-13] MEDS: Pantoprazole Inj IV SCH (09:01)
[2020-05-13] MEDS: BuPROPion SR 150mg tab ORAL SCH (09:01)
[2020-05-13] MEDS: Docusate 100mg cap ORAL SCH ×2 (09:01→18:59)
--- NOTE | 2020-05-13 09:22 | Hematology/Onc Progress Note ---
Assessment/Plan Assessment/Plan Assessment/Plan: # Leukopenia with hx of recent COVID-19 infection, pna --> continue ABX per id --> smear has been noted --> meds reviewed --> wbc 3.9-->2.4-->3.4--.2.9 --> consider neupogen as needed # Anemia due to iron deficiency --> iv iron has been started --> anemia panel reviewed --> also with hematuria --> hgb 11-->10.7-->11->10.7 # Respiratory alkalosis - on ABG --> No indication for dexamethasone or remdesivir at this time per ID --> per ID and pulm # Hyponatremia - Na 126 on admission --> per renal --> ivfs # Renal insufficiency --> Nephrology consult Dr. Aranda - BMP daily # UTI --> CTX per ID ABX augmentin # HTN # Dyslipidemia # Hx of CVA # Dvt ppx heparin sq Appreciate consultation and dw PCP Subjective Constitutional: Denies: no symptoms, chills, fever, malaise, weakness, other Cardiovascular: Denies: no symptoms, chest pain, edema, irregular heart rate, lightheadedness, palpitations, syncope, other Respiratory: Denies: no symptoms, cough, shortness of breath, SOB with excertion, SOB at rest, sputum, wheezing, other Gastrointestinal/Abdominal: Denies: no symptoms, abdomen distended, abdominal pain, black stools, tarry stools, blood in stool, constipated, diarrhea, difficulty swallowing, nausea, poor appetite, poor fluid intake, rectal bleeding, vomiting, other Neurologic/Psychiatric: Denies: no symptoms, anxiety, depressed, emotional problems, headache, numbness, paresthesia, pre-existing deficit, seizure, tingling, tremors, weakness, other Endocrine: Denies: no symptoms, excessive sweating, flushing, intolerance to cold, intolerance to heat, increased hunger, increased thirst, increased urine, unexplained weight gain, unexplained weight loss, other Hematologic/Lymphatic: Denies: no symptoms, anemia, easy bleeding, easy bruising, adenopathy, other Allergies: Coded Allergies: No Known Allergies (Unverified , 05/07/20) Subjective 05/12 no events, on abx, no bleeding, wbc is better, no night sweats 05/13 labs reviewed, meds noted, wbc 2.9, no bleeding, on iso Objective Objective Current Medications Medications (Trade) Dose Ordered Sig/Luis E Route PRN Reason Start Time Stop Time Status Last Admin Dose Admin Acetaminophen (Tylenol) 325 mg Q6H PRN RECTAL Temp >100.5 05/09/20 10:45 06/08/20 10:44 05/09/20 11:03 Acetaminophen (Tylenol) 650 mg Q6H PRN ORAL Temp >100.5 05/10/20 00:15 06/09/20 00:14 Amoxicillin/ Clavulanate Potassium (Augmentin) 875 mg EVERY 12 HOURS ORAL 05/11/20 21:00 05/18/20 20:59 05/13/20 09:01 Atorvastatin Calcium (Lipitor) 80 mg BEDTIME ORAL 05/07/20 21:00 08/05/20 20:59 05/12/20 21:55 Bisacodyl (Dulcolax) 10 mg DAILYPRN PRN RECTAL Constipation 05/07/20 15:45 08/05/20 15:44 Bupropion HCl (Wellbutrin SR) 150 mg DAILY ORAL 05/08/20 11:00 06/07/20 10:59 05/13/20 09:01 Dextrose (Dextrose 50%) 25 ml Q30M PRN IV Hypoglycemia 05/07/20 15:45 08/05/20 15:44 Dextrose (Dextrose 50%) 50 ml Q30M PRN IV Hypoglycemia 05/07/20 15:45 08/05/20 15:44 Docusate Sodium (Colace) 100 mg TWICE A DAY ORAL 05/08/20 09:00 06/07/20 08:59 05/13/20 09:01 Dronabinol (Marinol) 2.5 mg BID ORAL 05/11/20 09:00 08/09/20 08:59 05/13/20 09:01 Heparin Sodium (Porcine) (Heparin 5000 units/ml) 5,000 units EVERY 12 HOURS SUBQ 05/08/20 09:00 06/22/20 08:59 05/13/20 08:59 Iron Sucrose 100 mg/Sodium Chloride 60 ml @ 240 mls/hr BEDTIME IVPB 05/10/20 21:00 05/14/20 21:14 05/12/20 21:55 Pantoprazole (Protonix) 40 mg DAILY IV 05/08/20 09:00 06/07/20 08:59 05/13/20 09:01 Polyethylene Glycol (Miralax) 17 gm BEDTIME ORAL 05/08/20 21:00 06/07/20 20:59 05/12/20 21:55 Potassium Chloride 10 meq/ Dextrose/Sodium Chloride 1,005 ml @ 75 mls/hr [id number] IV 05/12/20 02:00 06/11/20 01:59 05/12/20 21:55 Last 24 Hour Vital Signs Date Time Temp Pulse Resp B/P (MAP) Pulse Ox O2 Delivery O2 Flow Rate FiO2 05/13/20 04:00 98.8 76 20 128/83 (98) 96 05/13/20 04:00 75 05/13/20 00:00 98.6 79 20 136/82 (100) 96 05/13/20 00:00 76 05/12/20 21:00 Room Air 05/12/20 20:00 73 05/12/20 20:00 98.0 76 20 138/80 (99) 96 05/12/20 16:00 72 05/12/20 16:00 99.5 74 18 138/75 (96) 96 05/12/20 12:00 70 05/12/20 11:31 97.9 72 20 128/70 (89) 96 05/12/20 09:00 Room Air 05/12/20 08:00 78 05/12/20 08:00 98.9 70 18 137/78 (97) 97 05/12/20 04:00 97.7 76 20 136/76 (96) 98 05/12/20 04:00 62 05/12/20 00:00 80 05/12/20 00:00 99.0 77 20 132/74 (93) 100 05/11/20 21:00 Room Air 05/11/20 20:00 99.5 75 20 136/77 (96) 97 05/11/20 20:00 78 05/11/20 16:00 96.7 71 20 120/71 (87) 98 05/11/20 16:00 62 05/11/20 12:00 66 05/11/20 11:51 96.7 71 19 119/71 (87) 98 Intake and Output 05/12/20 05/13/20 19:00 07:00 Intake Total 435 ml 810 ml Output Total 700 ml 800 ml Balance -265 ml 10 ml Intake Oral 360 ml IV Total 75 ml 810 ml Output Urine Total 700 ml 800 ml # Voids 1 Labs Test 05/10/20 11:10 05/11/20 07:23 05/11/20 12:06 05/12/20 05:00 White Blood Count 2.4 K/UL (4.8-10.8) 1.8 K/UL (4.8-10.8) 3.4 K/UL (4.8-10.8) Red Blood Count 3.79 M/UL (4.70-6.10) 3.82 M/UL (4.70-6.10) 3.91 M/UL (4.70-6.10) Hemoglobin 10.7 G/DL (14.2-18.0) 10.7 G/DL (14.2-18.0) 11.1 G/DL (14.2-18.0) Hematocrit 34.4 % (42.0-52.0) 34.7 % (42.0-52.0) 35.1 % (42.0-52.0) Mean Corpuscular Volume 91 FL (80-99) 91 FL (80-99) 90 FL (80-99) Mean Corpuscular Hemoglobin 28.3 PG (27.0-31.0) 28.1 PG (27.0-31.0) 28.3 PG (27.0-31.0) Mean Corpuscular Hemoglobin Concent 31.2 G/DL (32.0-36.0) 30.9 G/DL (32.0-36.0) 31.5 G/DL (32.0-36.0) Red Cell Distribution Width 13.5 % (11.6-14.8) 13.5 % (11.6-14.8) 13.2 % (11.6-14.8) Platelet Count 208 K/UL (150-450) 220 K/UL (150-450) 214 K/UL (150-450) Mean Platelet Volume 4.7 FL (6.5-10.1) 5.6 FL (6.5-10.1) 4.8 FL (6.5-10.1) Neutrophils (%) (Auto) % (45.0-75.0) % (45.0-75.0) % (45.0-75.0) Lymphocytes (%) (Auto) % (20.0-45.0) % (20.0-45.0) % (20.0-45.0) Monocytes (%) (Auto) % (1.0-10.0) % (1.0-10.0) % (1.0-10.0) Eosinophils (%) (Auto) % (0.0-3.0) % (0.0-3.0) % (0.0-3.0) Basophils (%) (Auto) % (0.0-2.0) % (0.0-2.0) % (0.0-2.0) Differential Total Cells Counted 100 100 100 Neutrophils % (Manual) 70 % (45-75) 55 % (45-75) 81 % (45-75) Lymphocytes % (Manual) 20 % (20-45) 34 % (20-45) 14 % (20-45) Monocytes % (Manual) 5 % (1-10) 11 % (1-10) 4 % (1-10) Eosinophils % (Manual) 5 % (0-3) 0 % (0-3) 1 % (0-3) Basophils % (Manual) 0 % (0-2) 0 % (0-2) 0 % (0-2) Band Neutrophils 0 % (0-8) 0 % (0-8) 0 % (0-8) Platelet Estimate Decreased Adequate Adequate Platelet Morphology Normal Normal Normal Red Blood Cell Morphology Normal Hypochromasia 1+ 1+ Sodium Level 133 MMOL/L (136-145) 130 MMOL/L (136-145) Potassium Level 3.6 MMOL/L (3.5-5.1) 3.6 MMOL/L (3.5-5.1) Chloride Level 100 MMOL/L (98-107) 98 MMOL/L (98-107) Carbon Dioxide Level 25 MMOL/L (21-32) 24 MMOL/L (21-32) Anion Gap 8 mmol/L (5-15) 8 mmol/L (5-15) Blood Urea Nitrogen 6 mg/dL (7-18) 5 mg/dL (7-18) Creatinine 0.9 MG/DL (0.55-1.30) 0.9 MG/DL (0.55-1.30) Estimat Glomerular Filtration Rate > 60 mL/min (>60) > 60 mL/min (>60) Glucose Level 109 MG/DL (74-106) 95 MG/DL (74-106) Calcium Level 7.7 MG/DL (8.5-10.1) 7.8 MG/DL (8.5-10.1) Magnesium Level 1.7 MG/DL (1.8-2.4) 1.7 MG/DL (1.8-2.4) Vancomycin Level Trough 7.2 ug/mL (5.0-12.0) Test 05/13/20 06:20 White Blood Count 2.9 K/UL (4.8-10.8) Red Blood Count 3.74 M/UL (4.70-6.10) Hemoglobin 10.7 G/DL (14.2-18.0) Hematocrit 33.8 % (42.0-52.0) Mean Corpuscular Volume 90 FL (80-99) Mean Corpuscular Hemoglobin 28.6 PG (27.0-31.0) Mean Corpuscular Hemoglobin Concent 31.7 G/DL (32.0-36.0) Red Cell Distribution Width 13.8 % (11.6-14.8) Platelet Count 200 K/UL (150-450) Mean Platelet Volume 4.7 FL (6.5-10.1) Neutrophils (%) (Auto) % (45.0-75.0) Lymphocytes (%) (Auto) % (20.0-45.0) Monocytes (%) (Auto) % (1.0-10.0) Eosinophils (%) (Auto) % (0.0-3.0) Basophils (%) (Auto) % (0.0-2.0) Sodium Level 130 MMOL/L (136-145) Potassium Level 4.1 MMOL/L (3.5-5.1) Chloride Level 99 MMOL/L (98-107) Carbon Dioxide Level 25 MMOL/L (21-32) Anion Gap 6 mmol/L (5-15) Blood Urea Nitrogen 4 mg/dL (7-18) Creatinine 0.9 MG/DL (0.55-1.30) Estimat Glomerular Filtration Rate > 60 mL/min (>60) Glucose Level 106 MG/DL (74-106) Calcium Level 7.6 MG/DL (8.5-10.1) Phosphorus Level 1.8 MG/DL (2.5-4.9) Magnesium Level 1.8 MG/DL (1.8-2.4) Height (Feet): 5 Height (Inches): 10.00 Weight (Pounds): 132 Objective Physical Exam General Appearance: no apparent distress, thin, nv++ HEENT: normocephalic, atraumatic Neck: non-tender, supple, normal inspection Respiratory/Chest: lungs clear, normal breath sounds Cardiovascular/Chest: normal rate, regular rhythm, no gallop/murmur Abdomen: soft, no organomegaly Extremities: other - severe contractures ++ Skin Exam: normal pigmentation Neurologic: motor weakness Musculoskeletal: atrophy Gu: +Shaji Pittman MD May 13, 2020 09:22
--- NOTE | 2020-05-13 09:41 | General Progress Note ---
Subjective ROS Limited/Unobtainable: Yes - Patient is nonverbal, unable to answer or follow any commands Allergies: Coded Allergies: No Known Allergies (Unverified , 05/07/20) Subjective No acute events overnight. Resting comfortably in bed. Makes eye contact. No acute distress Objective Last 24 Hour Vital Signs Date Time Temp Pulse Resp B/P (MAP) Pulse Ox O2 Delivery O2 Flow Rate FiO2 05/13/20 04:00 98.8 76 20 128/83 (98) 96 05/13/20 04:00 75 05/13/20 00:00 98.6 79 20 136/82 (100) 96 05/13/20 00:00 76 05/12/20 21:00 Room Air 05/12/20 20:00 73 05/12/20 20:00 98.0 76 20 138/80 (99) 96 05/12/20 16:00 72 05/12/20 16:00 99.5 74 18 138/75 (96) 96 05/12/20 12:00 70 05/12/20 11:31 97.9 72 20 128/70 (89) 96 Intake and Output 05/12/20 05/13/20 19:00 07:00 Intake Total 435 ml 810 ml Output Total 700 ml 800 ml Balance -265 ml 10 ml Intake Oral 360 ml IV Total 75 ml 810 ml Output Urine Total 700 ml 800 ml # Voids 1 Laboratory Tests 05/13/20 06:20: White Blood Count 2.9L, Red Blood Count 3.74L, Hemoglobin 10.7L, Hematocrit 33.8L, Mean Corpuscular Volume 90, Mean Corpuscular Hemoglobin 28.6, Mean Corpuscular Hemoglobin Concent 31.7L, Red Cell Distribution Width 13.8, Platelet Count 200, Mean Platelet Volume 4.7L, Neutrophils (%) (Auto) , Lymphocytes (%) (Auto) , Monocytes (%) (Auto) , Eosinophils (%) (Auto) , Basophils (%) (Auto) , Neutrophils % (Manual) [Pending], Lymphocytes % (Manual) [Pending], Platelet Estimate [Pending], Platelet Morphology [Pending], Sodium Level 130L, Potassium Level 4.1, Chloride Level 99, Carbon Dioxide Level 25, Anion Gap 6, Blood Urea Nitrogen 4L, Creatinine 0.9, Estimat Glomerular Filtration Rate > 60, Glucose Level 106, Calcium Level 7.6L, Phosphorus Level 1.8L, Magnesium Level 1.8 Height (Feet): 5 Height (Inches): 10.00 Weight (Pounds): 132 General Appearance: no apparent distress, alert EENT: PERRL/EOMI Neck: non-tender, supple Cardiovascular: normal rate, regular rhythm, no JVD Respiratory/Chest: lungs clear, normal breath sounds, respiratory distress Abdomen: normal bowel sounds, non tender, soft Extremities: other - Upper extremity and lower extremity contractures Edema: no edema noted Arm (L), no edema noted Arm (R), no edema noted Leg (L), no edema noted Leg (R), no edema noted Pedal (L), no edema noted Pedal (R), no edema noted 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 Kovacs is a 64-year-old male past medical history of hypertension, CVA nonverbal at baseline, renal insufficiency who was brought in from SNF for hyponatremia. He recently tested positive for COVID-19. Patient is nonverbal and unable to provide any history. # Hypovolemic hyponatremia 2/2 poor oral intakedowntrending today # COVID-19 infection # UTI 2/2 Enterococcus # Respiratory alkalosis - on ABG # Leukopenia likely secondary to viral infectionworsening # Normocytic anemia likely secondary to ACD # DURGA 2/2 prerenal azotemia # Essential hypertension # ?Chronic encephalopathy # Hyperlipidemia # History of CVA # Nonverbal P: Hemodynamically stable Saturating well on room air, monitor for increased O2 support No indications of dexamethasone, remdesivir Continue Augmentin per ID Urine cultures positive for Enterococcus, defer antibiotics to ID Leukopenia slightly decreased today IVF Sodium levels 130 Monitor renal function Continue home statin Continue home Wellbutrin - Pulmonary consult Dr. Gann, recs appreciated - ID consult Dr. Hewitt, recs appreciated Consult ar Vickers-onc recs appreciated - Nephrology consult Dr. Aranda, recs appreciated CM CODE: Full Diet: Cardiac DVT: Heparin 5000 BUD Dispo: Possible DC back to SNF tomorrow, if cleared by heme-onc Time spent on this encounter was 41 minutes which included 24 minutes of counseling and care coordination. I discussed with the nurse at bedside. Time of note may not reflect time patient was seen. Marcell Varma D.O May 13, 2020 09:41
--- NOTE | 2020-05-13 09:57 | NUR ---
CASE MANAGEMENT:REVIEW 05/13/20 SI: COVID PNA. UTI 98.8 75 20 128/83 96% ON RA NA-130 CA-7.6 PHOS-1.8 IS: IV K PHOS X1 IVF+KCL@75/HR AUGMENTIN PO Q12 MARINOL PO BID IV VENOFER QHS IV PROTONIX QD HEPARIN SQ Q12 : TELEMETRY STATUS DCP: CV PAVILION PLAN: DOWNGRADED TO MED/SURG RE TEST FOR COVID REQUESTED DISCHARGE PLAN FROM Addendum: 05/13/20 at 1001 by MONICA EATONN ADDENDUM WBC-2.9 (UP FROM 1.8)
--- NOTE | 2020-05-13 10:30 | General Progress Note ---
Subjective ROS Limited/Unobtainable: No Allergies: Coded Allergies: No Known Allergies (Unverified , 05/07/20) Objective Last 24 Hour Vital Signs Date Time Temp Pulse Resp B/P (MAP) Pulse Ox O2 Delivery O2 Flow Rate FiO2 05/13/20 04:00 98.8 76 20 128/83 (98) 96 05/13/20 04:00 75 05/13/20 00:00 98.6 79 20 136/82 (100) 96 05/13/20 00:00 76 05/12/20 21:00 Room Air 05/12/20 20:00 73 05/12/20 20:00 98.0 76 20 138/80 (99) 96 05/12/20 16:00 72 05/12/20 16:00 99.5 74 18 138/75 (96) 96 05/12/20 12:00 70 05/12/20 11:31 97.9 72 20 128/70 (89) 96 Intake and Output 05/12/20 05/13/20 19:00 07:00 Intake Total 435 ml 810 ml Output Total 700 ml 800 ml Balance -265 ml 10 ml Intake Oral 360 ml IV Total 75 ml 810 ml Output Urine Total 700 ml 800 ml # Voids 1 Laboratory Tests 05/13/20 06:20: White Blood Count 2.9L, Red Blood Count 3.74L, Hemoglobin 10.7L, Hematocrit 33.8L, Mean Corpuscular Volume 90, Mean Corpuscular Hemoglobin 28.6, Mean Corpuscular Hemoglobin Concent 31.7L, Red Cell Distribution Width 13.8, Platelet Count 200, Mean Platelet Volume 4.7L, Neutrophils (%) (Auto) , Lymphocytes (%) (Auto) , Monocytes (%) (Auto) , Eosinophils (%) (Auto) , Basophils (%) (Auto) , Differential Total Cells Counted 100, Neutrophils % (Manual) 63, Lymphocytes % (Manual) 25, Monocytes % (Manual) 9, Eosinophils % (Manual) 3, Basophils % (Manual) 0, Band Neutrophils 0, Platelet Estimate Adequate, Platelet Morphology Normal, Hypochromasia 1+, Sodium Level 130L, Potassium Level 4.1, Chloride Level 99, Carbon Dioxide Level 25, Anion Gap 6, Blood Urea Nitrogen 4L, Creatinine 0.9, Estimat Glomerular Filtration Rate > 60, Glucose Level 106, Calcium Level 7.6L, Phosphorus Level 1.8L, Magnesium Level 1.8 Height (Feet): 5 Height (Inches): 10.00 Weight (Pounds): 132 General Appearance: no apparent distress EENT: normal ENT inspection Neck: supple Cardiovascular: normal rate Respiratory/Chest: decreased breath sounds Abdomen: normal bowel sounds, non tender, soft Extremities: non-tender Assessment/Plan Assessment/Plan: 1. Pneumonia. 2. Hyponatremia. 3. UTI. 4. Constipation. 5. Normocytic anemia. 6. History of CVA. 7. History of Covid 8. History of hypercholesteremia. 9. History of BPH. bowel regimen stable H&H stool ob neg passed swallow eval on marinol hematology in put appreciated calorie count iv iron repeat labs will fu Alejandro Jimenez MD May 13, 2020 10:30
--- NOTE | 2020-05-13 10:52 | Pulmonology Progress Note ---
Subjective ROS Limited/Unobtainable: No Interval Events: None new Constitutional: Reports: fatigue, other HEENT: Repors: no symptoms Respiratory: Reports: no symptoms Cardiovascular: Reports: no symptoms Gastrointestinal/Abdominal: Denies: nausea, vomiting, diarrhea Psychiatric: Reports: other Skin: Denies: rash Musculoskeletal: Denies: pain Allergies: Coded Allergies: No Known Allergies (Unverified , 05/07/20) Objective Last 24 Hour Vital Signs Date Time Temp Pulse Resp B/P (MAP) Pulse Ox O2 Delivery O2 Flow Rate FiO2 05/13/20 04:00 98.8 76 20 128/83 (98) 96 05/13/20 04:00 75 05/13/20 00:00 98.6 79 20 136/82 (100) 96 05/13/20 00:00 76 05/12/20 21:00 Room Air 05/12/20 20:00 73 05/12/20 20:00 98.0 76 20 138/80 (99) 96 05/12/20 16:00 72 05/12/20 16:00 99.5 74 18 138/75 (96) 96 05/12/20 12:00 70 05/12/20 11:31 97.9 72 20 128/70 (89) 96 Intake and Output 05/12/20 05/13/20 19:00 07:00 Intake Total 435 ml 810 ml Output Total 700 ml 800 ml Balance -265 ml 10 ml Intake Oral 360 ml IV Total 75 ml 810 ml Output Urine Total 700 ml 800 ml # Voids 1 General Appearance: no acute distress HEENT: normocephalic Respiratory: chest wall non-tender, lungs clear Cardiovascular: normal peripheral pulses Abdomen: normal bowel sounds Laboratory Tests 05/13/20 06:20: White Blood Count 2.9L, Red Blood Count 3.74L, Hemoglobin 10.7L, Hematocrit 33.8L, Mean Corpuscular Volume 90, Mean Corpuscular Hemoglobin 28.6, Mean Corpuscular Hemoglobin Concent 31.7L, Red Cell Distribution Width 13.8, Platelet Count 200, Mean Platelet Volume 4.7L, Neutrophils (%) (Auto) , Lymphocytes (%) (Auto) , Monocytes (%) (Auto) , Eosinophils (%) (Auto) , Basophils (%) (Auto) , Differential Total Cells Counted 100, Neutrophils % (Manual) 63, Lymphocytes % (Manual) 25, Monocytes % (Manual) 9, Eosinophils % (Manual) 3, Basophils % (Manual) 0, Band Neutrophils 0, Platelet Estimate Adequate, Platelet Morphology Normal, Hypochromasia 1+, Sodium Level 130L, Potassium Level 4.1, Chloride Level 99, Carbon Dioxide Level 25, Anion Gap 6, Blood Urea Nitrogen 4L, Creatinine 0.9, Estimat Glomerular Filtration Rate > 60, Glucose Level 106, Calcium Level 7.6L, Phosphorus Level 1.8L, Magnesium Level 1.8 Current Medications Medications (Trade) Dose Ordered Sig/Luis E Route PRN Reason Start Time Stop Time Status Last Admin Dose Admin Acetaminophen (Tylenol) 325 mg Q6H PRN RECTAL Temp >100.5 05/09/20 10:45 06/08/20 10:44 05/09/20 11:03 Acetaminophen (Tylenol) 650 mg Q6H PRN ORAL Temp >100.5 05/10/20 00:15 06/09/20 00:14 Amoxicillin/ Clavulanate Potassium (Augmentin) 875 mg EVERY 12 HOURS ORAL 05/11/20 21:00 05/18/20 20:59 05/13/20 09:01 Atorvastatin Calcium (Lipitor) 80 mg BEDTIME ORAL 05/07/20 21:00 08/05/20 20:59 05/12/20 21:55 Bisacodyl (Dulcolax) 10 mg DAILYPRN PRN RECTAL Constipation 05/07/20 15:45 08/05/20 15:44 Bupropion HCl (Wellbutrin SR) 150 mg DAILY ORAL 05/08/20 11:00 06/07/20 10:59 05/13/20 09:01 Dextrose (Dextrose 50%) 25 ml Q30M PRN IV Hypoglycemia 05/07/20 15:45 08/05/20 15:44 Dextrose (Dextrose 50%) 50 ml Q30M PRN IV Hypoglycemia 05/07/20 15:45 08/05/20 15:44 Docusate Sodium (Colace) 100 mg TWICE A DAY ORAL 05/08/20 09:00 06/07/20 08:59 05/13/20 09:01 Dronabinol (Marinol) 2.5 mg BID ORAL 05/11/20 09:00 08/09/20 08:59 05/13/20 09:01 Heparin Sodium (Porcine) (Heparin 5000 units/ml) 5,000 units EVERY 12 HOURS SUBQ 05/08/20 09:00 06/22/20 08:59 05/13/20 08:59 Iron Sucrose 100 mg/Sodium Chloride 60 ml @ 240 mls/hr BEDTIME IVPB 05/10/20 21:00 05/14/20 21:14 05/12/20 21:55 Pantoprazole (Protonix) 40 mg ACBREAKFAST ORAL 05/14/20 06:30 06/13/20 06:29 Polyethylene Glycol (Miralax) 17 gm BEDTIME ORAL 05/08/20 21:00 06/07/20 20:59 05/12/20 21:55 Potassium Chloride 10 meq/ Dextrose/Sodium Chloride 1,005 ml @ 75 mls/hr [id number] IV 05/12/20 02:00 06/11/20 01:59 05/12/20 21:55 Sodium Phosphate 30 mm/Sodium Chloride 285 ml @ 47.5 mls/hr ONCE ONCE IVPB 05/13/20 11:00 05/13/20 16:59 Assessment/Plan Assessment/Plan IMPRESSION: 1. COVID-19 pneumonia. 2. Hyponatremia. 3. CVA. 4. Hyperlipidemia. DISCUSSION: The patient is saturating well on room air. I will follow as emotional support teacher. No new recommendations. Isiah Coffey Omar Syed MD May 13, 2020 10:52
[2020-05-13] MEDS ORDERED: Sodium Phosphate 30 MM in NS 275 ML IVPB ONE (11:00)
[2020-05-13 12:00] VITALS: BP 135/73
[2020-05-13] MEDS ORDERED: Pantoprazole Inj IV SCH (12:00)
--- NOTE | 2020-05-13 12:00 | NUR ---
NURSE NOTES: Patient received from TELE, report from Barrett ELIZONDO. Patient transferred to [facility] via bed on RA, in stable condition. Patient alert, non-verbal. Contracted. Will reposition every 2 hours. Optifoam to right shoulder, right hip, right heel, left upper back (skin intact), right upper arm abrasion noted, TELLER. FC in place (y/cl urine, reminded DIE STORAGE WORKER to document her FC output prior to transfer). IVF D5 NS +10 KCL at 75 ml/hr to LFA, site asymptomatic, will connect sodium phosphate IVPB as ordered. Contact/droplet precautions, bed in lowest position, will continue to monitor.
--- NOTE | 2020-05-13 12:09 | NUR ---
NURSE HAND-OFF REPORT: Important Events on Shift: Sodium phosphate running at 47.5mL/h and D51/2 NS 10mEq at 75; endorsed iron level 12. Patient Status: stable condition, full code Diet: cardiac, puree moist nectar thick, crush meds Pending Orders: [] Pending Results/Labs:[] Pending MD notification:[] Latest Vital Signs: Temperature 98.6 , Pulse 74 , B/P 128 /83 , Respiratory Rate 20 , O2 SAT 96 , Room Air, O2 Flow Rate . Vital Sign Comment: [] EKG Rhythm: Sinus Rhythm Rhythm change?: N MD Notified?: - MD Response: Latest Hankins Fall Score: 55 Fall Risk: High Risk Safety Measures: Call light Within Reach, Bed Alarm Zone 1, Side Rails Side Rails x3, Bed position Low and Locked. Fall Precautions: Yellow Socks Yellow Gown Door Sign Patient Fall Education Report given to Urvashi, 4th floor RN, moved to room [facility], no patient belongings, patient belongings list signed, IV site intact, no infiltration, no edema, no s/s infection, no redness noted. Addendum: 05/13/20 at 1215 by Barrett Parra RN monitor worker removed and given to [place] [employer].
--- NOTE | 2020-05-13 15:45 | NUR ---
NURSE NOTES: O2 saturation on RA 88%, no SOB, skin normal tone/warm, applied O2 2LNC, 95%,will continue to monitor.
[2020-05-13 16:00] VITALS: BP 130/70
--- NOTE | 2020-05-13 16:09 | Infectious Diseases Prog Note ---
Assessment/Plan Assessment/Plan ASSESSMENT AND PLAN: 1. gram + uti, sepsis, covid-19 infection, fevers, weakness, chest x-ray negative for pna sever leukopenia likely secondary to covid - augmentin po x 3 days - monitor labs - monitor temperatures - clinically improved - fevers improved 2. Hyponatremia. Continue IV fluids per Renal and Medicine. 3. The patient is anemic. 4. Possible hyperlipidemia or dyslipidemia. 5. CVA. 6. Weakness. 7. Nonverbal. 8. Hypertension. Blood pressure treatment per primary care team. 9. Renal insufficiency. 10. Skin care per protocol. 11. The patient has no known drug allergies. 12. Social history is negative. 13. Family history is noncontributory. 14. MAR is noted. 15. Case discussed with RN. 16. Continue treatment per primary consultants. Subjective Constitutional: Denies: fever HEENT: Denies: congestion Respiratory: Denies: shortness of breath Cardiovascular: Denies: chest pain Gastrointestinal/Abdominal: Denies: nausea, vomiting, diarrhea Genitourinary: Reports: other - no toth Neurologic: Denies: headache Psychiatric: Reports: other - NA Skin: Denies: rash Hematologic: Denies: bleeding Musculoskeletal: Denies: pain Allergies: Coded Allergies: No Known Allergies (Unverified , 05/07/20) Objective Last 24 Hour Vital Signs Date Time Temp Pulse Resp B/P (MAP) Pulse Ox O2 Delivery O2 Flow Rate FiO2 05/13/20 12:00 97.5 79 18 135/73 (93) 97 05/13/20 09:00 Room Air 05/13/20 08:00 74 05/13/20 08:00 98.6 74 20 128/83 (98) 96 05/13/20 04:00 98.8 76 20 128/83 (98) 96 05/13/20 04:00 75 05/13/20 00:00 98.6 79 20 136/82 (100) 96 05/13/20 00:00 76 05/12/20 21:00 Room Air 05/12/20 20:00 73 05/12/20 20:00 98.0 76 20 138/80 (99) 96 Height (Feet): 5 Height (Inches): 10.00 Weight (Pounds): 132 General Appearance: no acute distress HEENT: normocephalic, atraumatic, anicteric Respiratory/Chest: lungs clear, normal breath sounds, no respiratory distress, no accessory muscle use Cardiovascular: normal rate, regular rhythm, no gallop/murmur, no JVD Abdomen: normal bowel sounds, soft, non tender, no organomegaly, non distended Genitourinary: other - no toth Extremities: no cyanosis Skin: no rash Neurologic/Psychiatric: piercer 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 Comparison: Chest radiograph dated 05/07/2020 and 05/08/2020 Findings: Examination is limited due to overlying right arm shadow. The cardiomediastinal silhouette is unchanged in appearance. No new airspace consolidation. No new pleural effusion or pneumothorax. Redemonstration of right rib deformities. IMPRESSION: Limited examination due to overlying arm shadows. Within these limitations, no definite new airspace consolidation. Microbiology Date/Time Source Procedure Growth Status 05/09/20 12:00 Blood Blood Culture - Preliminary NO GROWTH AFTER 72 HOURS Resulted 05/07/20 18:40 Indwelling Cath Urine Culture - Final Enterococcus Faecalis Complete 05/07/20 13:20 Rectum VRE Culture - Final NO VANCOMYCIN RESISTANT ENTEROCOCCUS ... Complete 05/07/20 13:20 Nasal Nares MRSA Culture - Final NO METHICILLIN RESISTANT STAPH AUREUS... Complete Laboratory Tests Test 05/13/20 06:20 White Blood Count 2.9 K/UL (4.8-10.8) L Red Blood Count 3.74 M/UL (4.70-6.10) L Hemoglobin 10.7 G/DL (14.2-18.0) L Hematocrit 33.8 % (42.0-52.0) L Mean Corpuscular Volume 90 FL (80-99) Mean Corpuscular Hemoglobin 28.6 PG (27.0-31.0) Mean Corpuscular Hemoglobin Concent 31.7 G/DL (32.0-36.0) L Red Cell Distribution Width 13.8 % (11.6-14.8) Platelet Count 200 K/UL (150-450) Mean Platelet Volume 4.7 FL (6.5-10.1) L Neutrophils (%) (Auto) % (45.0-75.0) Lymphocytes (%) (Auto) % (20.0-45.0) Monocytes (%) (Auto) % (1.0-10.0) Eosinophils (%) (Auto) % (0.0-3.0) Basophils (%) (Auto) % (0.0-2.0) Differential Total Cells Counted 100 Neutrophils % (Manual) 63 % (45-75) Lymphocytes % (Manual) 25 % (20-45) Monocytes % (Manual) 9 % (1-10) Eosinophils % (Manual) 3 % (0-3) Basophils % (Manual) 0 % (0-2) Band Neutrophils 0 % (0-8) Platelet Estimate Adequate Platelet Morphology Normal Hypochromasia 1+ Sodium Level 130 MMOL/L (136-145) L Potassium Level 4.1 MMOL/L (3.5-5.1) Chloride Level 99 MMOL/L (98-107) Carbon Dioxide Level 25 MMOL/L (21-32) Anion Gap 6 mmol/L (5-15) Blood Urea Nitrogen 4 mg/dL (7-18) L Creatinine 0.9 MG/DL (0.55-1.30) Estimat Glomerular Filtration Rate > 60 mL/min (>60) Glucose Level 106 MG/DL (74-106) Calcium Level 7.6 MG/DL (8.5-10.1) L Phosphorus Level 1.8 MG/DL (2.5-4.9) L Magnesium Level 1.8 MG/DL (1.8-2.4) Current Medications Medications (Trade) Dose Ordered Sig/Luis E Route PRN Reason Start Time Stop Time Status Last Admin Dose Admin Acetaminophen (Tylenol) 325 mg Q6H PRN RECTAL Temp >100.5 05/09/20 10:45 06/08/20 10:44 05/09/20 11:03 Acetaminophen (Tylenol) 650 mg Q6H PRN ORAL Temp >100.5 05/10/20 00:15 06/09/20 00:14 Amoxicillin/ Clavulanate Potassium (Augmentin) 875 mg EVERY 12 HOURS ORAL 05/11/20 21:00 05/18/20 20:59 05/13/20 09:01 Atorvastatin Calcium (Lipitor) 80 mg BEDTIME ORAL 05/07/20 21:00 08/05/20 20:59 05/12/20 21:55 Bisacodyl (Dulcolax) 10 mg DAILYPRN PRN RECTAL Constipation 05/07/20 15:45 08/05/20 15:44 Bupropion HCl (Wellbutrin SR) 150 mg DAILY ORAL 05/08/20 11:00 06/07/20 10:59 05/13/20 09:01 Dextrose (Dextrose 50%) 25 ml Q30M PRN IV Hypoglycemia 05/07/20 15:45 08/05/20 15:44 Dextrose (Dextrose 50%) 50 ml Q30M PRN IV Hypoglycemia 05/07/20 15:45 08/05/20 15:44 Docusate Sodium (Colace) 100 mg TWICE A DAY ORAL 05/08/20 09:00 06/07/20 08:59 05/13/20 09:01 Dronabinol (Marinol) 2.5 mg BID ORAL 05/11/20 09:00 08/09/20 08:59 05/13/20 09:01 Heparin Sodium (Porcine) (Heparin 5000 units/ml) 5,000 units EVERY 12 HOURS SUBQ 05/08/20 09:00 06/22/20 08:59 05/13/20 08:59 Iron Sucrose 100 mg/Sodium Chloride 60 ml @ 240 mls/hr BEDTIME IVPB 05/10/20 21:00 05/14/20 21:14 05/12/20 21:55 Pantoprazole (Protonix) 40 mg ACBREAKFAST ORAL 05/14/20 06:30 06/13/20 06:29 Polyethylene Glycol (Miralax) 17 gm BEDTIME ORAL 05/08/20 21:00 06/07/20 20:59 05/12/20 21:55 Potassium Chloride 10 meq/ Dextrose/Sodium Chloride 1,005 ml @ 75 mls/hr [id number] IV 05/12/20 02:00 06/11/20 01:59 05/12/20 21:55 Sodium Phosphate 30 mm/Sodium Chloride 285 ml @ 47.5 mls/hr ONCE ONCE IVPB 05/13/20 11:00 05/13/20 16:59 05/13/20 11:56 Nickolas Goldstein MD May 13, 2020 16:09
--- NOTE | 2020-05-13 16:13 | Infectious Diseases Prog Note ---
Assessment/Plan Assessment/Plan ASSESSMENT AND PLAN: 1. enterococcus uti, sepsis, covid-19 infection, fevers, weakness, chest x-ray negative for pna severe leukopenia likely secondary to covid - augmentin po x 3 days - monitor labs - monitor temperatures - clinically improved - fevers improved 2. Hyponatremia. Continue IV fluids per Renal and Medicine. 3. The patient is anemic. 4. Possible hyperlipidemia or dyslipidemia. 5. CVA. 6. Weakness. 7. Nonverbal. 8. Hypertension. Blood pressure treatment per primary care team. 9. Renal insufficiency. 10. Skin care per protocol. 11. The patient has no known drug allergies. 12. Social history is negative. 13. Family history is noncontributory. 14. MAR is noted. 15. Case discussed with RN. 16. Continue treatment per primary consultants. Subjective Constitutional: Denies: fever HEENT: Denies: congestion Respiratory: Denies: shortness of breath Cardiovascular: Denies: chest pain Gastrointestinal/Abdominal: Denies: nausea, vomiting, diarrhea Genitourinary: Reports: other - no toth Neurologic: Reports: weakness, other - alert; Denies: headache Psychiatric: Reports: other - NA Skin: Denies: rash Hematologic: Denies: bleeding Musculoskeletal: Denies: pain Allergies: Coded Allergies: No Known Allergies (Unverified , 05/07/20) Objective Last 24 Hour Vital Signs Date Time Temp Pulse Resp B/P (MAP) Pulse Ox O2 Delivery O2 Flow Rate FiO2 05/13/20 12:00 97.5 79 18 135/73 (93) 97 05/13/20 09:00 Room Air 05/13/20 08:00 74 05/13/20 08:00 98.6 74 20 128/83 (98) 96 05/13/20 04:00 98.8 76 20 128/83 (98) 96 05/13/20 04:00 75 05/13/20 00:00 98.6 79 20 136/82 (100) 96 05/13/20 00:00 76 05/12/20 21:00 Room Air 05/12/20 20:00 73 05/12/20 20:00 98.0 76 20 138/80 (99) 96 Height (Feet): 5 Height (Inches): 10.00 Weight (Pounds): 132 General Appearance: no acute distress HEENT: normocephalic, atraumatic, anicteric Respiratory/Chest: lungs clear, normal breath sounds, no respiratory distress, no accessory muscle use Cardiovascular: normal rate, regular rhythm, no gallop/murmur, no JVD Abdomen: normal bowel sounds, soft, non tender, no organomegaly, non distended Genitourinary: other - no toth Extremities: no cyanosis Skin: no rash 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 Comparison: Chest radiograph dated 05/07/2020 and 05/08/2020 Findings: Examination is limited due to overlying right arm shadow. The cardiomediastinal silhouette is unchanged in appearance. No new airspace consolidation. No new pleural effusion or pneumothorax. Redemonstration of right rib deformities. IMPRESSION: Limited examination due to overlying arm shadows. Within these limitations, no definite new airspace consolidation. Microbiology Date/Time Source Procedure Growth Status 05/09/20 12:00 Blood Blood Culture - Preliminary NO GROWTH AFTER 72 HOURS Resulted 05/07/20 18:40 Indwelling Cath Urine Culture - Final Enterococcus Faecalis Complete 05/07/20 13:20 Rectum VRE Culture - Final NO VANCOMYCIN RESISTANT ENTEROCOCCUS ... Complete 05/07/20 13:20 Nasal Nares MRSA Culture - Final NO METHICILLIN RESISTANT STAPH AUREUS... Complete Laboratory Tests Test 05/13/20 06:20 White Blood Count 2.9 K/UL (4.8-10.8) L Red Blood Count 3.74 M/UL (4.70-6.10) L Hemoglobin 10.7 G/DL (14.2-18.0) L Hematocrit 33.8 % (42.0-52.0) L Mean Corpuscular Volume 90 FL (80-99) Mean Corpuscular Hemoglobin 28.6 PG (27.0-31.0) Mean Corpuscular Hemoglobin Concent 31.7 G/DL (32.0-36.0) L Red Cell Distribution Width 13.8 % (11.6-14.8) Platelet Count 200 K/UL (150-450) Mean Platelet Volume 4.7 FL (6.5-10.1) L Neutrophils (%) (Auto) % (45.0-75.0) Lymphocytes (%) (Auto) % (20.0-45.0) Monocytes (%) (Auto) % (1.0-10.0) Eosinophils (%) (Auto) % (0.0-3.0) Basophils (%) (Auto) % (0.0-2.0) Differential Total Cells Counted 100 Neutrophils % (Manual) 63 % (45-75) Lymphocytes % (Manual) 25 % (20-45) Monocytes % (Manual) 9 % (1-10) Eosinophils % (Manual) 3 % (0-3) Basophils % (Manual) 0 % (0-2) Band Neutrophils 0 % (0-8) Platelet Estimate Adequate Platelet Morphology Normal Hypochromasia 1+ Sodium Level 130 MMOL/L (136-145) L Potassium Level 4.1 MMOL/L (3.5-5.1) Chloride Level 99 MMOL/L (98-107) Carbon Dioxide Level 25 MMOL/L (21-32) Anion Gap 6 mmol/L (5-15) Blood Urea Nitrogen 4 mg/dL (7-18) L Creatinine 0.9 MG/DL (0.55-1.30) Estimat Glomerular Filtration Rate > 60 mL/min (>60) Glucose Level 106 MG/DL (74-106) Calcium Level 7.6 MG/DL (8.5-10.1) L Phosphorus Level 1.8 MG/DL (2.5-4.9) L Magnesium Level 1.8 MG/DL (1.8-2.4) Current Medications Medications (Trade) Dose Ordered Sig/Luis E Route PRN Reason Start Time Stop Time Status Last Admin Dose Admin Acetaminophen (Tylenol) 325 mg Q6H PRN RECTAL Temp >100.5 05/09/20 10:45 06/08/20 10:44 05/09/20 11:03 Acetaminophen (Tylenol) 650 mg Q6H PRN ORAL Temp >100.5 05/10/20 00:15 06/09/20 00:14 Amoxicillin/ Clavulanate Potassium (Augmentin) 875 mg EVERY 12 HOURS ORAL 05/11/20 21:00 05/18/20 20:59 05/13/20 09:01 Atorvastatin Calcium (Lipitor) 80 mg BEDTIME ORAL 05/07/20 21:00 08/05/20 20:59 05/12/20 21:55 Bisacodyl (Dulcolax) 10 mg DAILYPRN PRN RECTAL Constipation 05/07/20 15:45 08/05/20 15:44 Bupropion HCl (Wellbutrin SR) 150 mg DAILY ORAL 05/08/20 11:00 06/07/20 10:59 05/13/20 09:01 Dextrose (Dextrose 50%) 25 ml Q30M PRN IV Hypoglycemia 05/07/20 15:45 08/05/20 15:44 Dextrose (Dextrose 50%) 50 ml Q30M PRN IV Hypoglycemia 05/07/20 15:45 08/05/20 15:44 Docusate Sodium (Colace) 100 mg TWICE A DAY ORAL 05/08/20 09:00 06/07/20 08:59 05/13/20 09:01 Dronabinol (Marinol) 2.5 mg BID ORAL 05/11/20 09:00 08/09/20 08:59 05/13/20 09:01 Heparin Sodium (Porcine) (Heparin 5000 units/ml) 5,000 units EVERY 12 HOURS SUBQ 05/08/20 09:00 06/22/20 08:59 05/13/20 08:59 Iron Sucrose 100 mg/Sodium Chloride 60 ml @ 240 mls/hr BEDTIME IVPB 05/10/20 21:00 05/14/20 21:14 05/12/20 21:55 Pantoprazole (Protonix) 40 mg ACBREAKFAST ORAL 05/14/20 06:30 06/13/20 06:29 Polyethylene Glycol (Miralax) 17 gm BEDTIME ORAL 05/08/20 21:00 06/07/20 20:59 05/12/20 21:55 Potassium Chloride 10 meq/ Dextrose/Sodium Chloride 1,005 ml @ 75 mls/hr [id number] IV 05/12/20 02:00 06/11/20 01:59 05/12/20 21:55 Sodium Phosphate 30 mm/Sodium Chloride 285 ml @ 47.5 mls/hr ONCE ONCE IVPB 05/13/20 11:00 05/13/20 16:59 05/13/20 11:56 Nickolas Goldstein MD May 13, 2020 16:13
--- NOTE | 2020-05-13 16:43 | Surgery Progress Note ---
Surgery Progress Note Subjective Symptoms: improved, tolerating diet, passing flatus, BM Objective Last 24 Hour Vital Signs Date Time Temp Pulse Resp B/P (MAP) Pulse Ox O2 Delivery O2 Flow Rate FiO2 05/13/20 12:00 97.5 79 18 135/73 (93) 97 05/13/20 09:00 Room Air 05/13/20 08:00 74 05/13/20 08:00 98.6 74 20 128/83 (98) 96 05/13/20 04:00 98.8 76 20 128/83 (98) 96 05/13/20 04:00 75 05/13/20 00:00 98.6 79 20 136/82 (100) 96 05/13/20 00:00 76 05/12/20 21:00 Room Air 05/12/20 20:00 73 05/12/20 20:00 98.0 76 20 138/80 (99) 96 I&O Intake and Output 05/12/20 05/13/20 19:00 07:00 Intake Total 435 ml 810 ml Output Total 700 ml 800 ml Balance -265 ml 10 ml Intake Oral 360 ml IV Total 75 ml 810 ml Output Urine Total 700 ml 800 ml # Voids 1 Dressing: saturated Cardiovascular: RSR Respiratory: clear, decreased breath sounds Abdomen: non-tender, present bowel sounds, non-distended Extremities: no tenderness, no cyanosis Laboratory Tests Test 05/13/20 06:20 White Blood Count 2.9 K/UL (4.8-10.8) L Red Blood Count 3.74 M/UL (4.70-6.10) L Hemoglobin 10.7 G/DL (14.2-18.0) L Hematocrit 33.8 % (42.0-52.0) L Mean Corpuscular Volume 90 FL (80-99) Mean Corpuscular Hemoglobin 28.6 PG (27.0-31.0) Mean Corpuscular Hemoglobin Concent 31.7 G/DL (32.0-36.0) L Red Cell Distribution Width 13.8 % (11.6-14.8) Platelet Count 200 K/UL (150-450) Mean Platelet Volume 4.7 FL (6.5-10.1) L Neutrophils (%) (Auto) % (45.0-75.0) Lymphocytes (%) (Auto) % (20.0-45.0) Monocytes (%) (Auto) % (1.0-10.0) Eosinophils (%) (Auto) % (0.0-3.0) Basophils (%) (Auto) % (0.0-2.0) Differential Total Cells Counted 100 Neutrophils % (Manual) 63 % (45-75) Lymphocytes % (Manual) 25 % (20-45) Monocytes % (Manual) 9 % (1-10) Eosinophils % (Manual) 3 % (0-3) Basophils % (Manual) 0 % (0-2) Band Neutrophils 0 % (0-8) Platelet Estimate Adequate Platelet Morphology Normal Hypochromasia 1+ Sodium Level 130 MMOL/L (136-145) L Potassium Level 4.1 MMOL/L (3.5-5.1) Chloride Level 99 MMOL/L (98-107) Carbon Dioxide Level 25 MMOL/L (21-32) Anion Gap 6 mmol/L (5-15) Blood Urea Nitrogen 4 mg/dL (7-18) L Creatinine 0.9 MG/DL (0.55-1.30) Estimat Glomerular Filtration Rate > 60 mL/min (>60) Glucose Level 106 MG/DL (74-106) Calcium Level 7.6 MG/DL (8.5-10.1) L Phosphorus Level 1.8 MG/DL (2.5-4.9) L Magnesium Level 1.8 MG/DL (1.8-2.4) Plan Problems: (1) Hyponatremia (2) UTI (urinary tract infection) (3) COVID-19 (4) Abdominal pain Assessment & Plan: KUB noted likely constipated recommend bowel regimen hold on further imaging okay for diet activity as tolerated will follow with exam and recs thank you penile soft tissue pelvic swelling. likely seroma. does not seem to be abscess. will monitor toth causing breakdown of penile meatus chronic contractures Abdomen: Nonobstructive but nonspecific bowel gas pattern. Moderate to large amount of stool. No free air. Bones: Chronic appearing deformity of the proximal right femur. Soft tissues: Normal. IMPRESSION: Nonobstructive but nonspecific bowel gas pattern. Moderate to large amount of stool. Harry Brown May 13, 2020 16:43
--- NOTE | 2020-05-13 19:30 | NUR ---
NURSE NOTES: Patient in bed, non-verbal, on O2 at 2LPM via nasal cannula. With IV access on the left forearm g.20 connected to D5 NS +KCL 10 @ 75ml/hr. Call light in reach. Bed in lowest, lock engaged and alarm on. Will continue plan of care.
--- NOTE | 2020-05-13 19:42 | NUR ---
NURSE HAND-OFF: Important Events on Shift:Transfer from [facility] at 1200, Applied O2 2LNC (sats 88% RA) Patient Status: stable Diet: Cardiac Pureed Moist [place] Thick, FEED 1:1 Pending Orders: none Pending Results/Labs:none Pending MD notification:none Latest Vital Signs: Temperature 97.7 , Pulse 77 , B/P 130 /70 , Respiratory Rate 18 , O2 SAT 95 , Room Air, O2 Flow Rate . Vital Sign Comment: O2 saturations improved on O2 2LNC Latest Hankins Fall Score: 55 Fall Risk: High Risk Safety Measures: Call light Within Reach, Bed Alarm Zone 1, Side Rails Side Rails x3, Bed position Low and Locked. Fall Precautions: Yellow Socks Yellow Gown Door Sign Patient Fall Education Report given to Hiro ELIZONDO
[2020-05-13 20:00] VITALS: BP 125/75
--- NOTE | 2020-05-13 20:22 | Diagnostic Imaging Report ---
EXAM: US Abdomen Limited, Right Upper Quadrant CLINICAL HISTORY: ABD PAIN TECHNIQUE: Real-time ultrasound of the right upper quadrant with image documentation. COMPARISON: No relevant prior studies available. FINDINGS: Limitations: Limited study with patient positioning. Liver: Liver length 12.1 cm. No intrahepatic bile duct dilation. Flow in the portal vein is towards the liver. Gallbladder: Unremarkable. No gallstones. Common bile duct: Common bile duct measures 7 mm. No stones. Visualized right kidney is unremarkable. No hydronephrosis. Pancreas not well-visualized. IMPRESSION: Mild dilated common bile duct measuring 7 mm. Liver and gallbladder are within normal limits.
[2020-05-13] MEDS: Miralax 17gm pkt ORAL SCH (21:00)
[2020-05-13] MEDS: Atorvastatin 80mg tab ORAL SCH (22:05)
[2020-05-13] MEDS: Iron Sucrose 100 MG in NS 55 ML IVPB SCH (22:12)
[2020-05-14] VITALS: BP 140/71
[2020-05-14 04:00] VITALS: BP 139/70
--- NOTE | 2020-05-14 07:25 | NUR ---
nurse notes received patient in bed , awake, NV, no sign of distress , O2 at 2LPM via NC, IVF patent and infusing well, Gergory cath patent and draining well, on isolation, aspiration , fall and pressure precaution observed, HOB elevated at 45 degree, turn q2 h for comfort and good circulation, 4 P's in progress, both side rails for safety , bed in lowest position, call light w/n reach, will continue to monitor patient condition anh forte
--- NOTE | 2020-05-14 07:36 | NUR ---
NURSE HAND-OFF: Important Events on Shift: IV insertion Patient Status: Diet:Cardiac pureed moist Pending Orders: Pending Results/Labs: Pending MD notification: Latest Vital Signs: Temperature 97.9 , Pulse 69 , B/P 139 /70 , Respiratory Rate 17 , O2 SAT 100 , Room Air, O2 Flow Rate . Vital Sign Comment: Latest Hankins Fall Score: 55 Fall Risk: High Risk Safety Measures: Call light Within Reach, Bed Alarm Zone 1, Side Rails Side Rails x3, Bed position Low and Locked. Fall Precautions: Yellow Socks Yellow Gown Door Sign Patient Fall Education Report given to CARO Douglas.
[2020-05-14 08:03] VITALS: BP 119/84
[2020-05-14] MEDS: Augmentin 875mg Tab ORAL SCH ×2 (08:44→20:37)
[2020-05-14] MEDS: Docusate 100mg cap ORAL SCH ×2 (08:44→17:08)
[2020-05-14] MEDS: BuPROPion SR 150mg tab ORAL SCH (08:44)
[2020-05-14] MEDS: Dronabinol 2.5mg Cap ORAL SCH ×2 (08:44→17:08)
[2020-05-14] MEDS: Heparin 5000 units/ml inj SUBQ SCH ×2 (08:45→20:39)
[2020-05-14 09:35] LABS: HEMATOCRIT 32.2 % (42.0-52.0); HEMOGLOBIN 10.3 G/DL (14.2-18.0); MEAN CORPUSCULAR VOLUME 89 FL (80-99); PLATELET COUNT 180 K/UL (150-450); RED BLOOD COUNT 3.63 M/UL (4.70-6.10); RED CELL DISTRIBUTION WIDTH 13.4 % (11.6-14.8); WHITE BLOOD COUNT 2.8 K/UL (4.8-10.8)
--- NOTE | 2020-05-14 10:14 | General Progress Note ---
Subjective ROS Limited/Unobtainable: Yes - Nonverbal, unable to answer any questions Allergies: Coded Allergies: No Known Allergies (Unverified , 05/07/20) Subjective No acute events overnight. Resting comfortably in bed. Was eating with the nurse his applesauce. Still waiting on labs this morning. Objective Last 24 Hour Vital Signs Date Time Temp Pulse Resp B/P (MAP) Pulse Ox O2 Delivery O2 Flow Rate FiO2 05/14/20 08:45 Room Air 05/14/20 08:03 97.8 77 18 119/84 (96) 100 05/14/20 04:00 97.9 69 17 139/70 (93) 100 05/14/20 00:00 97.3 76 17 140/71 (94) 100 05/13/20 21:00 Room Air 05/13/20 20:00 99.3 83 17 125/75 (92) 100 05/13/20 16:00 97.7 77 18 130/70 (90) 95 05/13/20 12:00 97.5 79 18 135/73 (93) 97 Intake and Output 05/13/20 05/14/20 19:00 07:00 Intake Total 100 ml Output Total 175 ml 200 ml Balance -75 ml -200 ml Intake Oral 100 ml Output Urine Total 175 ml 200 ml Laboratory Tests 05/13/20 16:43: POC Whole Blood Glucose 185H 05/14/20 04:00: White Blood Count 2.8L, Red Blood Count 3.63L, Hemoglobin 10.3L, Hematocrit 32.2L, Mean Corpuscular Volume 89, Mean Corpuscular Hemoglobin 28.4, Mean Corpuscular Hemoglobin Concent 32.0, Red Cell Distribution Width 13.4, Platelet Count 180, Mean Platelet Volume 4.4L, Neutrophils (%) (Auto) , Lymphocytes (%) (Auto) , Monocytes (%) (Auto) , Eosinophils (%) (Auto) , Basophils (%) (Auto) , Neutrophils % (Manual) [Pending], Lymphocytes % (Manual) [Pending], Platelet Estimate [Pending], Platelet Morphology [Pending], Sodium Level [Pending], Potassium Level [Pending], Chloride Level [Pending], Carbon Dioxide Level [Pending], Blood Urea Nitrogen [Pending], Creatinine [Pending], Estimat Glomerular Filtration Rate [Pending], Glucose Level [Pending], Calcium Level [Pending], Phosphorus Level [Pending], Magnesium Level [Pending] Height (Feet): 5 Height (Inches): 10.00 Weight (Pounds): 132 General Appearance: no apparent distress, alert, confused EENT: PERRL/EOMI Neck: non-tender, normal alignment Cardiovascular: normal rate, regular rhythm, no JVD Respiratory/Chest: lungs clear, normal breath sounds Abdomen: normal bowel sounds, non tender, soft Extremities: other - Bilateral upper extremity and lower extremity contractures Edema: no edema noted Arm (L), no edema noted Arm (R), no edema noted Leg (L), no edema noted Leg (R), no edema noted Pedal (L), no edema noted Pedal (R), no edema noted 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 Kovacs is a 64-year-old male past medical history of hypertension, CVA nonverbal at baseline, renal insufficiency who was brought in from SNF for hyponatremia. He recently tested positive for COVID-19. Patient is nonverbal and unable to provide any history. # Hypovolemic hyponatremia 2/2 poor oral intake #Failure to thrive # COVID-19 infection # UTI 2/2 Enterococcus # Respiratory alkalosis - on ABG # Normocytic anemia likely secondary to ACD # DURGA 2/2 prerenal azotemia # Essential hypertension # ?Chronic encephalopathy # Hyperlipidemia # History of CVA # Nonverbal P: Had discussion with patient's granddaughter Guillermina Kovacs, about possible PEG placement given patient's failure to thrive and decreased oral intake she will discussed with family call back with decision. Still waiting on labs this morning No indications of dexamethasone, remdesivir Continue Augmentin per ID Urine cultures positive for Enterococcus, defer antibiotics to ID Leukopenia slightly decreased today: Okay from heme-onc standpoint so long as ANC greater than 500 IVF Monitor renal function Continue home statin Continue home Wellbutrin - Pulmonary consult Dr. Gann, recs appreciated - ID consult Dr. Hewitt, recs appreciated Consult Dr. Haji, heme-onc recs appreciated - Nephrology consult Dr. Aranda, recs appreciated GI consulted Dr. Vosoghi, recs appreciated CM CODE: Full Diet: Cardiac DVT: Heparin 5000 BUD Dispo: Discharge back to SNF, once decision on feeding Time spent on this encounter was 48 minutes which included 29 minutes of counseling and care coordination. I discussed with the nurse at bedside. Time of note may not reflect time patient was seen. Marcell Varma D.O May 14, 2020 10:13
[2020-05-14 10:29] LABS: ANION GAP 8 mmol/L (5-15); BLOOD UREA NITROGEN 7 mg/dL (7-18); CALCIUM 7.8 MG/DL (8.5-10.1); CARBON DIOXIDE 24 MMOL/L (21-32); CHLORIDE 99 MMOL/L (98-107); CREATININE 0.8 MG/DL (0.55-1.30); PHOSPHORUS 2.7 MG/DL (2.5-4.9); POTASSIUM 4.2 MMOL/L (3.5-5.1); SODIUM 131 MMOL/L (136-145)
[2020-05-14] MEDS ORDERED: Magnesium Oxide 400mg tab ORAL SCH (11:30)
--- NOTE | 2020-05-14 11:33 | Surgery Progress Note ---
Surgery Progress Note Subjective Additional Comments wbc 2.8 taking some oral intake no n/v us noted exam stable Objective Last 24 Hour Vital Signs Date Time Temp Pulse Resp B/P (MAP) Pulse Ox O2 Delivery O2 Flow Rate FiO2 05/14/20 08:45 Room Air 05/14/20 08:03 97.8 77 18 119/84 (96) 100 05/14/20 04:00 97.9 69 17 139/70 (93) 100 05/14/20 00:00 97.3 76 17 140/71 (94) 100 05/13/20 21:00 Room Air 05/13/20 20:00 99.3 83 17 125/75 (92) 100 05/13/20 16:00 97.7 77 18 130/70 (90) 95 05/13/20 12:00 97.5 79 18 135/73 (93) 97 I&O Intake and Output 05/13/20 05/14/20 18:59 06:59 Intake Total 100 ml Output Total 175 ml 200 ml Balance -75 ml -200 ml Intake Oral 100 ml Output Urine Total 175 ml 200 ml Dressing: saturated Cardiovascular: RSR Respiratory: decreased breath sounds Abdomen: soft, non-tender, present bowel sounds, non-distended Extremities: no tenderness, no cyanosis Laboratory Tests Test 05/13/20 16:43 05/14/20 04:00 POC Whole Blood Glucose 185 MG/DL (74-106) H White Blood Count 2.8 K/UL (4.8-10.8) L Red Blood Count 3.63 M/UL (4.70-6.10) L Hemoglobin 10.3 G/DL (14.2-18.0) L Hematocrit 32.2 % (42.0-52.0) L Mean Corpuscular Volume 89 FL (80-99) Mean Corpuscular Hemoglobin 28.4 PG (27.0-31.0) Mean Corpuscular Hemoglobin Concent 32.0 G/DL (32.0-36.0) Red Cell Distribution Width 13.4 % (11.6-14.8) Platelet Count 180 K/UL (150-450) Mean Platelet Volume 4.4 FL (6.5-10.1) L Neutrophils (%) (Auto) % (45.0-75.0) Lymphocytes (%) (Auto) % (20.0-45.0) Monocytes (%) (Auto) % (1.0-10.0) Eosinophils (%) (Auto) % (0.0-3.0) Basophils (%) (Auto) % (0.0-2.0) Differential Total Cells Counted 100 Neutrophils % (Manual) 67 % (45-75) Lymphocytes % (Manual) 28 % (20-45) Monocytes % (Manual) 4 % (1-10) Eosinophils % (Manual) 1 % (0-3) Basophils % (Manual) 0 % (0-2) Band Neutrophils 0 % (0-8) Platelet Estimate Adequate Platelet Morphology Normal Hypochromasia 1+ Sodium Level 131 MMOL/L (136-145) L Potassium Level 4.2 MMOL/L (3.5-5.1) Chloride Level 99 MMOL/L (98-107) Carbon Dioxide Level 24 MMOL/L (21-32) Anion Gap 8 mmol/L (5-15) Blood Urea Nitrogen 7 mg/dL (7-18) Creatinine 0.8 MG/DL (0.55-1.30) Estimat Glomerular Filtration Rate > 60 mL/min (>60) Glucose Level 77 MG/DL (74-106) Calcium Level 7.8 MG/DL (8.5-10.1) L Phosphorus Level 2.7 MG/DL (2.5-4.9) Magnesium Level 1.7 MG/DL (1.8-2.4) L Plan Problems: (1) Hyponatremia (2) UTI (urinary tract infection) (3) COVID-19 (4) Abdominal pain Assessment & Plan: KUB noted likely constipated recommend bowel regimen hold on further imaging okay for diet needs more oral intake having bowel function improved activity as tolerated will follow with exam and recs thank you penile soft tissue pelvic swelling. likely seroma. does not seem to be absces s. will monitor toth causing breakdown of penile meatus chronic contractures Abdomen: Nonobstructive but nonspecific bowel gas pattern. Moderate to large amount of stool. No free air. Bones: Chronic appearing deformity of the proximal right femur. Soft tissues: Normal. IMPRESSION: Nonobstructive but nonspecific bowel gas pattern. Moderate to large amount of stool. Liver: Liver length 12.1 cm. No intrahepatic bile duct dilation. Flow in the portal vein is towards the liver. Gallbladder: Unremarkable. No gallstones. Common bile duct: Common bile duct measures 7 mm. No stones. Visualized right kidney is unremarkable. No hydronephrosis. Pancreas not well-visualized. IMPRESSION: Mild dilated common bile duct measuring 7 mm. Liver and gallbladder are within normal limits. Harry Brown May 14, 2020 11:33
[2020-05-14 12:00] VITALS: BP 138/49
--- NOTE | 2020-05-14 12:12 | Pulmonology Progress Note ---
Subjective ROS Limited/Unobtainable: Yes - Nonverbal, unable to answer any questions Interval Events: None new Constitutional: Denies: fever HEENT: Repors: no symptoms Respiratory: Reports: no symptoms Cardiovascular: Reports: no symptoms Gastrointestinal/Abdominal: Denies: nausea, vomiting, diarrhea Psychiatric: Reports: other - NA Skin: Denies: rash Musculoskeletal: Denies: pain Allergies: Coded Allergies: No Known Allergies (Unverified , 05/07/20) Objective Last 24 Hour Vital Signs Date Time Temp Pulse Resp B/P (MAP) Pulse Ox O2 Delivery O2 Flow Rate FiO2 05/14/20 08:45 Room Air 05/14/20 08:03 97.8 77 18 119/84 (96) 100 05/14/20 04:00 97.9 69 17 139/70 (93) 100 05/14/20 00:00 97.3 76 17 140/71 (94) 100 05/13/20 21:00 Room Air 05/13/20 20:00 99.3 83 17 125/75 (92) 100 05/13/20 16:00 97.7 77 18 130/70 (90) 95 Intake and Output 05/13/20 05/14/20 19:00 07:00 Intake Total 100 ml Output Total 175 ml 200 ml Balance -75 ml -200 ml Intake Oral 100 ml Output Urine Total 175 ml 200 ml General Appearance: no acute distress HEENT: normocephalic Respiratory: chest wall non-tender, lungs clear Cardiovascular: normal peripheral pulses Abdomen: normal bowel sounds Laboratory Tests 05/13/20 16:43: POC Whole Blood Glucose 185H 05/14/20 04:00: White Blood Count 2.8L, Red Blood Count 3.63L, Hemoglobin 10.3L, Hematocrit 32.2L, Mean Corpuscular Volume 89, Mean Corpuscular Hemoglobin 28.4, Mean Corpuscular Hemoglobin Concent 32.0, Red Cell Distribution Width 13.4, Platelet Count 180, Mean Platelet Volume 4.4L, Neutrophils (%) (Auto) , Lymphocytes (%) (Auto) , Monocytes (%) (Auto) , Eosinophils (%) (Auto) , Basophils (%) (Auto) , Differential Total Cells Counted 100, Neutrophils % (Manual) 67, Lymphocytes % (Manual) 28, Monocytes % (Manual) 4, Eosinophils % (Manual) 1, Basophils % (Manual) 0, Band Neutrophils 0, Platelet Estimate Adequate, Platelet Morphology Normal, Hypochromasia 1+, Sodium Level 131L, Potassium Level 4.2, Chloride Level 99, Carbon Dioxide Level 24, Anion Gap 8, Blood Urea Nitrogen 7, Creatinine 0.8, Estimat Glomerular Filtration Rate > 60, Glucose Level 77, Calcium Level 7.8L, Phosphorus Level 2.7, Magnesium Level 1.7L Current Medications Medications (Trade) Dose Ordered Sig/Luis E Route PRN Reason Start Time Stop Time Status Last Admin Dose Admin Acetaminophen (Tylenol) 325 mg Q6H PRN RECTAL Temp >100.5 05/09/20 10:45 06/08/20 10:44 05/09/20 11:03 Acetaminophen (Tylenol) 650 mg Q6H PRN ORAL Temp >100.5 05/10/20 00:15 06/09/20 00:14 Amoxicillin/ Clavulanate Potassium (Augmentin) 875 mg EVERY 12 HOURS ORAL 05/11/20 21:00 05/18/20 20:59 05/14/20 08:44 Atorvastatin Calcium (Lipitor) 80 mg BEDTIME ORAL 05/07/20 21:00 08/05/20 20:59 05/13/20 22:05 Bisacodyl (Dulcolax) 10 mg DAILYPRN PRN RECTAL Constipation 05/07/20 15:45 08/05/20 15:44 Bupropion HCl (Wellbutrin SR) 150 mg DAILY ORAL 05/08/20 11:00 06/07/20 10:59 05/14/20 08:44 Dextrose (Dextrose 50%) 25 ml Q30M PRN IV Hypoglycemia 05/07/20 15:45 08/05/20 15:44 Dextrose (Dextrose 50%) 50 ml Q30M PRN IV Hypoglycemia 05/07/20 15:45 08/05/20 15:44 Docusate Sodium (Colace) 100 mg TWICE A DAY ORAL 05/08/20 09:00 06/07/20 08:59 05/14/20 08:44 Dronabinol (Marinol) 2.5 mg BID ORAL 05/11/20 09:00 08/09/20 08:59 05/14/20 08:44 Heparin Sodium (Porcine) (Heparin 5000 units/ml) 5,000 units EVERY 12 HOURS SUBQ 05/08/20 09:00 06/22/20 08:59 05/14/20 08:45 Iron Sucrose 100 mg/Sodium Chloride 60 ml @ 240 mls/hr BEDTIME IVPB 05/10/20 21:00 05/14/20 21:14 05/13/20 22:12 Magnesium Oxide (Mag-Ox 400mg) 600 mg ONCE ORAL 05/14/20 11:30 05/14/20 13:30 Pantoprazole (Protonix) 40 mg ACBREAKFAST ORAL 05/14/20 06:30 06/13/20 06:29 05/14/20 06:02 Polyethylene Glycol (Miralax) 17 gm BEDTIME ORAL 05/08/20 21:00 06/07/20 20:59 05/12/20 21:55 Potassium Chloride 10 meq/ Dextrose/Sodium Chloride 1,005 ml @ 75 mls/hr [id number] IV 05/12/20 02:00 06/11/20 01:59 05/14/20 03:14 Assessment/Plan Assessment/Plan IMPRESSION: 1. COVID-19 pneumonia. 2. Hyponatremia. 3. CVA. 4. Hyperlipidemia. DISCUSSION: The patient is saturating well on room air. I will follow as char dust cleaner and salvager. No new recommendations. Isiah Coffey Omar Syed MD May 14, 2020 12:12
[2020-05-14 16:00] VITALS: BP 134/78
--- NOTE | 2020-05-14 18:25 | Nephrology Progress Note ---
Assessment/Plan Plan #Hyponatremia- hypovolumic #COVID infection #UTI #HLD #HTN #h/o CVA #nonverbal #failure to thrive -GI eval for consideration of PEG PLACEMENT - IVF on D5NS for now - calorie count - consider PEG - ID eval - antibiotics per ID - follow cx - monitor sodium - GI eval - swallow eval - pulmonary eval - monitor UOP - replete lytes prn Subjective ROS Limited/Unobtainable: Yes Subjective GI eval for consideration of PEG PLACEMENT sodium 130 today mag low repleted afebrile vitals stable Objective Objective Last 24 Hour Vital Signs Date Time Temp Pulse Resp B/P (MAP) Pulse Ox O2 Delivery O2 Flow Rate FiO2 05/14/20 16:00 97.8 85 18 134/78 (96) 95 05/14/20 12:00 97.6 78 18 138/49 (78) 95 05/14/20 08:45 Room Air 05/14/20 08:03 97.8 77 18 119/84 (96) 100 05/14/20 04:00 97.9 69 17 139/70 (93) 100 05/14/20 00:00 97.3 76 17 140/71 (94) 100 05/13/20 21:00 Room Air 05/13/20 20:00 99.3 83 17 125/75 (92) 100 Intake and Output 05/13/20 05/14/20 19:00 07:00 Intake Total 100 ml 75 ml Output Total 175 ml 200 ml Balance -75 ml -125 ml Intake Oral 100 ml IV Total 75 ml Output Urine Total 175 ml 200 ml Laboratory Tests 05/14/20 04:00: White Blood Count 2.8L, Red Blood Count 3.63L, Hemoglobin 10.3L, Hematocrit 32.2L, Mean Corpuscular Volume 89, Mean Corpuscular Hemoglobin 28.4, Mean Corpuscular Hemoglobin Concent 32.0, Red Cell Distribution Width 13.4, Platelet Count 180, Mean Platelet Volume 4.4L, Neutrophils (%) (Auto) , Lymphocytes (%) (Auto) , Monocytes (%) (Auto) , Eosinophils (%) (Auto) , Basophils (%) (Auto) , Differential Total Cells Counted 100, Neutrophils % (Manual) 67, Lymphocytes % (Manual) 28, Monocytes % (Manual) 4, Eosinophils % (Manual) 1, Basophils % (Manual) 0, Band Neutrophils 0, Platelet Estimate Adequate, Platelet Morphology Normal, Hypochromasia 1+, Sodium Level 131L, Potassium Level 4.2, Chloride Level 99, Carbon Dioxide Level 24, Anion Gap 8, Blood Urea Nitrogen 7, Creatinine 0.8, Estimat Glomerular Filtration Rate > 60, Glucose Level 77, Calcium Level 7.8L, Phosphorus Level 2.7, Magnesium Level 1.7L Height (Feet): 5 Height (Inches): 10.00 Weight (Pounds): 132 Objective General Appearance: no apparent distress Lines, tubes and drains: peripheral HEENT: normocephalic, atraumatic Neck: non-tender Respiratory/Chest: chest wall non-tender, normal breath sounds Extremities: normal range of motion Skin Exam: normal pigmentation Barak Aranda M.D. May 14, 2020 18:25
--- NOTE | 2020-05-14 19:30 | NUR ---
NURSE NOTES: received report from anh montgomery. patient is on bed, awake. non verbal. on nc 2 lpm. no sob. with iv line on the left hand running d5ns + 10 meq @ 75 ml/hr. per ulises" patient had an order for mg sulfate 2 bags for mg level of 1.7.; new order of venous duplex".bedbound. reiterated to call and ask for assistance to prevent fall or injury. bed locked and in lowest position. call light and light button within easy reach. will strictly observe isolation precaution.will continue plan of care.
--- NOTE | 2020-05-14 19:33 | NUR ---
NURSE HAND-OFF: Important Events on Shift:[NO CHANGES] Patient Status: [STABLE] Diet: [] Pending Orders: [LABS IN AM] Pending Results/Labs:[NONE] Pending MD notification:[NONE] Latest Vital Signs: Temperature 97.8 , Pulse 85 , B/P 134 /78 , Respiratory Rate 18 , O2 SAT 95 , Room Air, O2 Flow Rate . Vital Sign Comment: [STABLE] Latest Hankins Fall Score: 55 Fall Risk: High Risk Safety Measures: Call light Within Reach, Bed Alarm Zone 1, Side Rails Side Rails x3, Bed position Low and Locked. Fall Precautions: Yellow Socks Yellow Gown Door Sign Patient Fall Education Report given to [CARO WICK].
[2020-05-14 20:00] VITALS: BP 120/65
[2020-05-14] MEDS: Iron Sucrose 100 MG in NS 55 ML IVPB SCH (20:37)
[2020-05-14] MEDS: Atorvastatin 80mg tab ORAL SCH (20:37)
[2020-05-14] MEDS: Miralax 17gm pkt ORAL SCH (20:40)
[2020-05-15] VITALS: BP 124/62
[2020-05-15 04:00] VITALS: BP 129/76
--- NOTE | 2020-05-15 06:41 | NUR ---
NURSE HAND-OFF: Important Events on Shift: [facility]; today Patient Status: stable Diet cardiac pureed moist Pending Orders: venous duplex r/o dvt Pending Results/Labs: Pending MD notification: Latest Vital Signs: Temperature 97.6 , Pulse 63 , B/P 129 /76 , Respiratory Rate 20 , O2 SAT 96 , Room Air, O2 Flow Rate . Vital Sign Comment: Latest Hankins Fall Score: 55 Fall Risk: High Risk Safety Measures: Call light Within Reach, Bed Alarm Zone 1, Side Rails Side Rails x3, Bed position Low and Locked. Fall Precautions: Yellow Socks Yellow Gown Door Sign Patient Fall Education Addendum: 05/15/20 at 0731 by Carmel Jauregui RN HAND-OFF: Report given to anh kuo.
[2020-05-15 07:00] LABS: HEMATOCRIT 32.2 % (42.0-52.0); HEMOGLOBIN 10.1 G/DL (14.2-18.0); MEAN CORPUSCULAR VOLUME 90 FL (80-99); PLATELET COUNT 188 K/UL (150-450); RED BLOOD COUNT 3.56 M/UL (4.70-6.10); RED CELL DISTRIBUTION WIDTH 14.1 % (11.6-14.8); WHITE BLOOD COUNT 2.6 K/UL (4.8-10.8)
[2020-05-15 07:26] LABS: ANION GAP 7 mmol/L (5-15); BLOOD UREA NITROGEN 3 mg/dL (7-18); CARBON DIOXIDE 25 MMOL/L (21-32); CHLORIDE 101 MMOL/L (98-107); CREATININE 0.7 MG/DL (0.55-1.30); POTASSIUM 4.1 MMOL/L (3.5-5.1); SODIUM 133 MMOL/L (136-145)
--- NOTE | 2020-05-15 07:40 | NUR ---
NURSE NOTES: Received patient in bed,awake, non verbal, patient is contracted. [employer] feed the patient.Lung sound is clear, no s/s of pain or discomfort per FLACC pain scale.Bed is in lowest position and locked. Will continue plan of care.
[2020-05-15 08:00] VITALS: BP 134/78
[2020-05-15] MEDS: Docusate 100mg cap ORAL SCH ×2 (09:00→17:37)
[2020-05-15] MEDS: BuPROPion SR 150mg tab ORAL SCH (09:14)
[2020-05-15] MEDS: Augmentin 875mg Tab ORAL SCH ×2 (09:14→22:09)
[2020-05-15] MEDS: Dronabinol 2.5mg Cap ORAL SCH ×2 (09:14→17:37)
[2020-05-15] MEDS: Heparin 5000 units/ml inj SUBQ SCH ×2 (09:15→22:41)
[2020-05-15] MEDS ORDERED: AMOX TR-K CLV1 EAC2 ORAL (09:58)
--- NOTE | 2020-05-15 09:58 | Discharge Instructions ---
Discharge Instructions Discharge Instructions Diet: regular Activity: bedrest For Congestive Heart Failure Reminder Report to your physician any weight gain of 5 pounds or more in one week. Marcell Varma D.O May 15, 2020 09:58
--- NOTE | 2020-05-15 10:02 | Pulmonology Progress Note ---
Subjective ROS Limited/Unobtainable: Yes Interval Events: None new Constitutional: Denies: fever HEENT: Repors: no symptoms Respiratory: Reports: no symptoms Cardiovascular: Reports: no symptoms Gastrointestinal/Abdominal: Denies: nausea, vomiting, diarrhea Psychiatric: Reports: other - NA Skin: Denies: rash Musculoskeletal: Denies: pain Allergies: Coded Allergies: No Known Allergies (Unverified , 05/07/20) Objective Last 24 Hour Vital Signs Date Time Temp Pulse Resp B/P (MAP) Pulse Ox O2 Delivery O2 Flow Rate FiO2 05/15/20 08:00 97.8 69 18 134/78 (96) 96 05/15/20 04:00 97.6 63 20 129/76 (93) 96 05/15/20 00:00 98.2 66 20 124/62 (82) 95 05/14/20 21:00 Room Air 05/14/20 20:00 98.1 72 18 120/65 (83) 97 05/14/20 16:00 97.8 85 18 134/78 (96) 95 05/14/20 12:00 97.6 78 18 138/49 (78) 95 Intake and Output 05/14/20 05/15/20 19:00 07:00 Intake Total 1185 ml 200 ml Output Total 800 ml 700 ml Balance 385 ml -500 ml Intake Oral 360 ml 200 ml IV Total 825 ml Output Urine Total 800 ml 700 ml # Bowel Movements 1 General Appearance: no acute distress HEENT: normocephalic Respiratory: chest wall non-tender, lungs clear Cardiovascular: normal peripheral pulses Abdomen: normal bowel sounds Laboratory Tests 05/15/20 05:00: White Blood Count 2.6L, Red Blood Count 3.56L, Hemoglobin 10.1L, Hematocrit 32. 2L, Mean Corpuscular Volume 90, Mean Corpuscular Hemoglobin 28.5, Mean Corpuscular Hemoglobin Concent 31.5L, Red Cell Distribution Width 14.1, Platelet Count 188, Mean Platelet Volume 4.6L, Neutrophils (%) (Auto) , Lymphocytes (%) (Auto) , Monocytes (%) (Auto) , Eosinophils (%) (Auto) , Basophils (%) (Auto) , Differential Total Cells Counted 100, Neutrophils % (Manual) 63, Lymphocytes % (Manual) 23, Monocytes % (Manual) 12H, Eosinophils % (Manual) 2, Basophils % (Manual) 0, Band Neutrophils 0, Platelet Estimate Adequate, Platelet Morphology Normal, Hypochromasia 1+, Anisocytosis 1+, Schistocytes Rare, Sodium Level 133L, Potassium Level 4.1, Chloride Level 101, Carbon Dioxide Level 25, Anion Gap 7, Blood Urea Nitrogen 3L, Creatinine 0.7, Estimat Glomerular Filtration Rate > 60, Glucose Level 121H, Calcium Level 8.0L, Magnesium Level 2.0 Current Medications Medications (Trade) Dose Ordered Sig/Luis E Route PRN Reason Start Time Stop Time Status Last Admin Dose Admin Acetaminophen (Tylenol) 325 mg Q6H PRN RECTAL Temp >100.5 05/09/20 10:45 06/08/20 10:44 05/09/20 11:03 Acetaminophen (Tylenol) 650 mg Q6H PRN ORAL Temp >100.5 05/10/20 00:15 06/09/20 00:14 Amoxicillin/ Clavulanate Potassium (Augmentin) 875 mg EVERY 12 HOURS ORAL 05/11/20 21:00 05/18/20 20:59 05/15/20 09:14 Atorvastatin Calcium (Lipitor) 80 mg BEDTIME ORAL 05/07/20 21:00 08/05/20 20:59 05/14/20 20:37 Bisacodyl (Dulcolax) 10 mg DAILYPRN PRN RECTAL Constipation 05/07/20 15:45 08/05/20 15:44 Bupropion HCl (Wellbutrin SR) 150 mg DAILY ORAL 05/08/20 11:00 06/07/20 10:59 05/15/20 09:14 Dextrose (Dextrose 50%) 25 ml Q30M PRN IV Hypoglycemia 05/07/20 15:45 08/05/20 15:44 Dextrose (Dextrose 50%) 50 ml Q30M PRN IV Hypoglycemia 05/07/20 15:45 08/05/20 15:44 Docusate Sodium (Colace) 100 mg TWICE A DAY ORAL 05/08/20 09:00 06/07/20 08:59 05/14/20 17:08 Dronabinol (Marinol) 2.5 mg BID ORAL 05/11/20 09:00 08/09/20 08:59 05/15/20 09:14 Heparin Sodium (Porcine) (Heparin 5000 units/ml) 5,000 units EVERY 12 HOURS SUBQ 05/08/20 09:00 06/22/20 08:59 05/15/20 09:15 Pantoprazole (Protonix) 40 mg ACBREAKFAST ORAL 05/14/20 06:30 06/13/20 06:29 05/15/20 06:01 Polyethylene Glycol (Miralax) 17 gm BEDTIME ORAL 05/08/20 21:00 06/07/20 20:59 05/12/20 21:55 Potassium Chloride 10 meq/ Dextrose/Sodium Chloride 1,005 ml @ 75 mls/hr [id number] IV 05/12/20 02:00 06/11/20 01:59 05/14/20 20:40 Assessment/Plan Assessment/Plan IMPRESSION: 1. COVID-19 pneumonia. 2. Hyponatremia. 3. CVA. 4. Hyperlipidemia. DISCUSSION: The patient is saturating well on room air. I will follow as transition coach. No new recommendations. Isiah Coffey Omar Syed MD May 15, 2020 10:02
--- NOTE | 2020-05-15 10:06 | Discharge Summary ---
Discharge Summary Hospital Course Date of Admission May 07, 2020 at 13:49 Date of Discharge Admitting Diagnosis Hyponatremia HPI Nico Kovacs is a 64 year old male who was admitted on May 07, 2020 at 13:49 for Hyponatremia General Appearance: no apparent distress, alert, confused EENT: PERRL/EOMI Neck: non-tender, normal alignment Cardiovascular: normal rate, regular rhythm, no JVD Respiratory/Chest: lungs clear, normal breath sounds Abdomen: normal bowel sounds, non tender, soft Extremities: other - Bilateral upper extremity and lower extremity contractures Edema: no edema noted Arm (L), no edema noted Arm (R), no edema noted Leg (L), no edema noted Leg (R), no edema noted Pedal (L), no edema noted Pedal (R), no edema noted Generalized Neurologic: manager medical affairs II-XII grossly normal, alert Skin: normal pigmentation, warm/dry Hospital Course Mr. Kovacs is a 64-year-old male past medical history of hypertension, CVA nonverbal at baseline, renal insufficiency who was brought in from SNF for hyponatremia. He recently tested positive for COVID-19. Patient is nonverbal at baseline and unable to provide much history. During his hospital admission patient was found to be hyponatremic in the 120s with mild DURGA prerenal azotemia that responded to fluids along with diet support. Patient also found to have Enterococcus UTI started on Augmentin per ID. He was also noted to have leukopenia, in which hematology and oncology Dr. Carrillo evaluated patient. Medically stable from heme-onc standpoint as long as ANC greater than 500 which has been throughout his admission. Throughout his admission patient remained hemodynamically stable with no respiratory compromise. Concerns about his oral intake and failure to thrive were evaluated and patient seen by GI along with nutritional consult. Patient found to eat 50 to 75% of all his meals with nursing assist. Patient's electrolytes abnormalities and DURGA have resolved. Patient otherwise remained medically stable for safe discharge back to SNF. # Hypovolemic hyponatremia 2/2 poor oral intake #Failure to thriveimproved # COVID-19 infection # UTI 2/2 Enterococcus #Leukopenia # Respiratory alkalosis - on ABG # Normocytic anemia likely secondary to ACD # DURGA 2/2 prerenal azotemia # Essential hypertension # ?Chronic encephalopathy # Hyperlipidemia # History of CVA # Nonverbal P: He was found to be Covid positive prior to admission, however remained hemodynamically stable without any acute respiratory compromise, therefore no indication for dexamethasone or remdesivir treatment. Was found to have a UTI Enterococcus will continue 3 more days of Augmentin 875 twice daily to complete a 7-day course Patient able to eat 50 to 75% of his meals when assisted by nurse, so please have nursing program coordinator assist with patient feeds at all times. Follow-up serial BMPs to monitor electrolytes and renal function Follow-up serial CBCs, ensure ANC is greater than 500 per heme-onc recs, monitor for signs of infectious processes I personally had a discussion with family, daughter Guillermina Kovacs for discussion about possible PEG in the future, she says she will talk to her family but never returned call Discharge to SNF Time spent on this encounter was 41 minutes which included 23 minutes of counseling and care coordination. I discussed with the nurse at bedside. Time of note may not reflect time patient was seen. Discharge Discharge Vital Signs Last Vital Signs Date Time Temp Pulse Resp B/P (MAP) Pulse Ox O2 Delivery O2 Flow Rate FiO2 05/15/20 08:00 97.8 69 18 134/78 (96) 96 05/14/20 21:00 Room Air 05/07/20 16:02 21 Discharge Disposition Patient was discharged to Discharge Instructions Discharge Instructions Activity: Marcell Werner D.O May 15, 2020 10:06
--- NOTE | 2020-05-15 10:44 | Hematology/Onc Progress Note ---
Assessment/Plan Assessment/Plan Assessment/Plan: # Leukopenia with hx of recent COVID-19 infection, pna --> continue ABX per id --> smear has been noted --> meds reviewed --> wbc 3.9-->2.4-->3.4--.2.9 --> consider neupogen as needed # Anemia due to iron deficiency --> iv iron has been started --> anemia panel reviewed --> also with hematuria --> hgb 11-->10.7-->11->10.7 # Respiratory alkalosis - on ABG --> No indication for dexamethasone or remdesivir at this time per ID --> per ID and pulm # Hyponatremia - Na 126 on admission --> per renal --> ivfs # Renal insufficiency --> Nephrology consult Dr. Aranda - BMP daily # UTI --> CTX per ID ABX augmentin # HTN # Dyslipidemia # Hx of CVA # Dvt ppx heparin sq Appreciate consultation and dw PCP Subjective Constitutional: Denies: no symptoms, chills, fever, malaise, weakness, other HEENT: Denies: no symptoms, eye pain, blurred vision, tearing, double vision, ear pain, ear discharge, nose pain, nose congestion, throat pain, throat swelling, mouth pain, mouth swelling, other Respiratory: Denies: no symptoms, cough, shortness of breath, SOB with excertion, SOB at rest, sputum, wheezing, other Gastrointestinal/Abdominal: Denies: no symptoms, abdomen distended, abdominal pain, black stools, tarry stools, blood in stool, constipated, diarrhea, difficulty swallowing, nausea, poor appetite, poor fluid intake, rectal bleedin g, vomiting, other Genitourinary: Denies: no symptoms, burning, discharge, frequency, flank pain, hematuria, incontinence, pain, urgency, other Neurologic/Psychiatric: Denies: no symptoms, anxiety, depressed, emotional problems, headache, numbness, paresthesia, pre-existing deficit, seizure, tingling, tremors, weakness, other Endocrine: Denies: no symptoms, excessive sweating, flushing, intolerance to cold, intolerance to heat, increased hunger, increased thirst, increased urine, unexplained weight gain, unexplained weight loss, other Allergies: Coded Allergies: No Known Allergies (Unverified , 05/07/20) Subjective 05/12 no events, on abx, no bleeding, wbc is better, no night sweats 05/13 labs reviewed, meds noted, wbc 2.9, no bleeding, on iso 05/15 meds noted, no bleeding, dw rn, no major events wbc 2.6 Objective Objective Current Medications Medications (Trade) Dose Ordered Sig/Luis E Route PRN Reason Start Time Stop Time Status Last Admin Dose Admin Acetaminophen (Tylenol) 325 mg Q6H PRN RECTAL Temp >100.5 05/09/20 10:45 06/08/20 10:44 05/09/20 11:03 Acetaminophen (Tylenol) 650 mg Q6H PRN ORAL Temp >100.5 05/10/20 00:15 06/09/20 00:14 Amoxicillin/ Clavulanate Potassium (Augmentin) 875 mg EVERY 12 HOURS ORAL 05/11/20 21:00 05/18/20 20:59 05/15/20 09:14 Atorvastatin Calcium (Lipitor) 80 mg BEDTIME ORAL 05/07/20 21:00 08/05/20 20:59 05/14/20 20:37 Bisacodyl (Dulcolax) 10 mg DAILYPRN PRN RECTAL Constipation 05/07/20 15:45 08/05/20 15:44 Bupropion HCl (Wellbutrin SR) 150 mg DAILY ORAL 05/08/20 11:00 06/07/20 10:59 05/15/20 09:14 Dextrose (Dextrose 50%) 25 ml Q30M PRN IV Hypoglycemia 05/07/20 15:45 08/05/20 15:44 Dextrose (Dextrose 50%) 50 ml Q30M PRN IV Hypoglycemia 05/07/20 15:45 08/05/20 15:44 Docusate Sodium (Colace) 100 mg TWICE A DAY ORAL 05/08/20 09:00 06/07/20 08:59 05/14/20 17:08 Dronabinol (Marinol) 2.5 mg BID ORAL 05/11/20 09:00 08/09/20 08:59 05/15/20 09:14 Heparin Sodium (Porcine) (Heparin 5000 units/ml) 5,000 units EVERY 12 HOURS SUBQ 05/08/20 09:00 06/22/20 08:59 05/15/20 09:15 Pantoprazole (Protonix) 40 mg ACBREAKFAST ORAL 05/14/20 06:30 06/13/20 06:29 05/15/20 06:01 Polyethylene Glycol (Miralax) 17 gm BEDTIME ORAL 05/08/20 21:00 06/07/20 20:59 05/12/20 21:55 Potassium Chloride 10 meq/ Dextrose/Sodium Chloride 1,005 ml @ 75 mls/hr [id number] IV 05/12/20 02:00 06/11/20 01:59 05/14/20 20:40 Last 24 Hour Vital Signs Date Time Temp Pulse Resp B/P (MAP) Pulse Ox O2 Delivery O2 Flow Rate FiO2 05/15/20 08:00 97.8 69 18 134/78 (96) 96 05/15/20 04:00 97.6 63 20 129/76 (93) 96 05/15/20 00:00 98.2 66 20 124/62 (82) 95 05/14/20 21:00 Room Air 05/14/20 20:00 98.1 72 18 120/65 (83) 97 05/14/20 16:00 97.8 85 18 134/78 (96) 95 05/14/20 12:00 97.6 78 18 138/49 (78) 95 05/14/20 08:45 Room Air 05/14/20 08:03 97.8 77 18 119/84 (96) 100 05/14/20 04:00 97.9 69 17 139/70 (93) 100 05/14/20 00:00 97.3 76 17 140/71 (94) 100 05/13/20 21:00 Room Air 05/13/20 20:00 99.3 83 17 125/75 (92) 100 05/13/20 16:00 97.7 77 18 130/70 (90) 95 05/13/20 12:00 97.5 79 18 135/73 (93) 97 Intake and Output 05/14/20 05/15/20 19:00 07:00 Intake Total 1185 ml 200 ml Output Total 800 ml 700 ml Balance 385 ml -500 ml Intake Oral 360 ml 200 ml IV Total 825 ml Output Urine Total 800 ml 700 ml # Bowel Movements 1 Labs Test 05/13/20 06:20 05/13/20 16:43 05/14/20 04:00 05/15/20 05:00 White Blood Count 2.9 K/UL (4.8-10.8) 2.8 K/UL (4.8-10.8) 2.6 K/UL (4.8-10.8) Red Blood Count 3.74 M/UL (4.70-6.10) 3.63 M/UL (4.70-6.10) 3.56 M/UL (4.70-6.10) Hemoglobin 10.7 G/DL (14.2-18.0) 10.3 G/DL (14.2-18.0) 10.1 G/DL (14.2-18.0) Hematocrit 33.8 % (42.0-52.0) 32.2 % (42.0-52.0) 32.2 % (42.0-52.0) Mean Corpuscular Volume 90 FL (80-99) 89 FL (80-99) 90 FL (80-99) Mean Corpuscular Hemoglobin 28.6 PG (27.0-31.0) 28.4 PG (27.0-31.0) 28.5 PG (27.0-31.0) Mean Corpuscular Hemoglobin Concent 31.7 G/DL (32.0-36.0) 32.0 G/DL (32.0-36.0) 31.5 G/DL (32.0-36.0) Red Cell Distribution Width 13.8 % (11.6-14.8) 13.4 % (11.6-14.8) 14.1 % (11.6-14.8) Platelet Count 200 K/UL (150-450) 180 K/UL (150-450) 188 K/UL (150-450) Mean Platelet Volume 4.7 FL (6.5-10.1) 4.4 FL (6.5-10.1) 4.6 FL (6.5-10.1) Neutrophils (%) (Auto) % (45.0-75.0) % (45.0-75.0) % (45.0-75.0) Lymphocytes (%) (Auto) % (20.0-45.0) % (20.0-45.0) % (20.0-45.0) Monocytes (%) (Auto) % (1.0-10.0) % (1.0-10.0) % (1.0-10.0) Eosinophils (%) (Auto) % (0.0-3.0) % (0.0-3.0) % (0.0-3.0) Basophils (%) (Auto) % (0.0-2.0) % (0.0-2.0) % (0.0-2.0) Differential Total Cells Counted 100 100 100 Neutrophils % (Manual) 63 % (45-75) 67 % (45-75) 63 % (45-75) Lymphocytes % (Manual) 25 % (20-45) 28 % (20-45) 23 % (20-45) Monocytes % (Manual) 9 % (1-10) 4 % (1-10) 12 % (1-10) Eosinophils % (Manual) 3 % (0-3) 1 % (0-3) 2 % (0-3) Basophils % (Manual) 0 % (0-2) 0 % (0-2) 0 % (0-2) Band Neutrophils 0 % (0-8) 0 % (0-8) 0 % (0-8) Platelet Estimate Adequate Adequate Adequate Platelet Morphology Normal Normal Normal Hypochromasia 1+ 1+ 1+ Sodium Level 130 MMOL/L (136-145) 131 MMOL/L (136-145) 133 MMOL/L (136-145) Potassium Level 4.1 MMOL/L (3.5-5.1) 4.2 MMOL/L (3.5-5.1) 4.1 MMOL/L (3.5-5.1) Chloride Level 99 MMOL/L (98-107) 99 MMOL/L (98-107) 101 MMOL/L (98-107) Carbon Dioxide Level 25 MMOL/L (21-32) 24 MMOL/L (21-32) 25 MMOL/L (21-32) Anion Gap 6 mmol/L (5-15) 8 mmol/L (5-15) 7 mmol/L (5-15) Blood Urea Nitrogen 4 mg/dL (7-18) 7 mg/dL (7-18) 3 mg/dL (7-18) Creatinine 0.9 MG/DL (0.55-1.30) 0.8 MG/DL (0.55-1.30) 0.7 MG/DL (0.55-1.30) Estimat Glomerular Filtration Rate > 60 mL/min (>60) > 60 mL/min (>60) > 60 mL/min (>60) Glucose Level 106 MG/DL (74-106) 77 MG/DL (74-106) 121 MG/DL (74-106) Calcium Level 7.6 MG/DL (8.5-10.1) 7.8 MG/DL (8.5-10.1) 8.0 MG/DL (8.5-10.1) Phosphorus Level 1.8 MG/DL (2.5-4.9) 2.7 MG/DL (2.5-4.9) Magnesium Level 1.8 MG/DL (1.8-2.4) 1.7 MG/DL (1.8-2.4) 2.0 MG/DL (1.8-2.4) POC Whole Blood Glucose 185 MG/DL (74-106) Anisocytosis 1+ Schistocytes Rare Height (Feet): 5 Height (Inches): 10.00 Weight (Pounds): 132 Objective Physical Exam General Appearance: no apparent distress, thin, nv++ HEENT: normocephalic, atraumatic Neck: non-tender, supple, normal inspection Respiratory/Chest: lungs clear, normal breath sounds Cardiovascular/Chest: normal rate, regular rhythm, no gallop/murmur Abdomen: soft, no organomegaly Extremities: other - severe contractures ++ Skin Exam: normal pigmentation Neurologic: motor weakness Musculoskeletal: atrophy Gu: +Shaji Pittman MD May 15, 2020 10:44
--- NOTE | 2020-05-15 10:45 | NUR ---
DISCHARGE PLANNING CLINICALS FAXED TO [facility]/ WAITING FOR COVID RESULTS FX [phone]
--- NOTE | 2020-05-15 10:48 | NUR ---
NURSE NOTES: covid swab done properly and sent the specimen to lab.
[2020-05-15 12:00] VITALS: BP 146/78
--- NOTE | 2020-05-15 13:00 | NUR ---
NURSE NOTES: Dr. Varma is aware of covid test result.
--- NOTE | 2020-05-15 14:54 | Nephrology Progress Note ---
Assessment/Plan Plan #Hyponatremia- hypovolumic #COVID infection #UTI #HLD #HTN #h/o CVA #nonverbal #failure to thrive -GI eval for consideration of PEG PLACEMENT - IVF on D5NS for now - calorie count - consider PEG - ID eval - antibiotics per ID - follow cx - monitor sodium - GI eval - swallow eval - pulmonary eval - monitor UOP - replete lytes prn Subjective ROS Limited/Unobtainable: Yes Subjective GI eval for consideration of PEG PLACEMENT sodium 130 today mag low repleted afebrile vitals stable Objective Objective Last 24 Hour Vital Signs Date Time Temp Pulse Resp B/P (MAP) Pulse Ox O2 Delivery O2 Flow Rate FiO2 05/15/20 12:00 97.8 68 19 146/78 (100) 96 05/15/20 09:00 Room Air 05/15/20 08:00 97.8 69 18 134/78 (96) 96 05/15/20 04:00 97.6 63 20 129/76 (93) 96 05/15/20 00:00 98.2 66 20 124/62 (82) 95 05/14/20 21:00 Room Air 05/14/20 20:00 98.1 72 18 120/65 (83) 97 05/14/20 16:00 97.8 85 18 134/78 (96) 95 Intake and Output 05/14/20 05/15/20 19:00 07:00 Intake Total 1185 ml 200 ml Output Total 800 ml 700 ml Balance 385 ml -500 ml Intake Oral 360 ml 200 ml IV Total 825 ml Output Urine Total 800 ml 700 ml # Bowel Movements 1 Laboratory Tests 05/15/20 05:00: White Blood Count 2.6L, Red Blood Count 3.56L, Hemoglobin 10.1L, Hematocrit 32.2L, Mean Corpuscular Volume 90, Mean Corpuscular Hemoglobin 28.5, Mean Corpuscular Hemoglobin Concent 31.5L, Red Cell Distribution Width 14.1, Platelet Count 188, Mean Platelet Volume 4.6L, Neutrophils (%) (Auto) , Lymphocytes (%) (Auto) , Monocytes (%) (Auto) , Eosinophils (%) (Auto) , Basophils (%) (Auto) , Differential Total Cells Counted 100, Neutrophils % (Manual) 63, Lymphocytes % (Manual) 23, Monocytes % (Manual) 12H, Eosinophils % (Manual) 2, Basophils % (Manual) 0, Band Neutrophils 0, Platelet Estimate Adequate, Platelet Morphology Normal, Hypochromasia 1+, Anisocytosis 1+, Schistocytes Rare, Sodium Level 133L, Potassium Level 4.1, Chloride Level 101, Carbon Dioxide Level 25, Anion Gap 7, Blood Urea Nitrogen 3L, Creatinine 0.7, Estimat Glomerular Filtration Rate > 60, Glucose Level 121H, Calcium Level 8.0L, Magnesium Level 2.0 Height (Feet): 5 Height (Inches): 10.00 Weight (Pounds): 132 Objective General Appearance: no apparent distress Lines, tubes and drains: peripheral HEENT: normocephalic, atraumatic Neck: non-tender Respiratory/Chest: chest wall non-tender, normal breath sounds Extremities: normal range of motion Skin Exam: normal pigmentation Barak Aranda M.D. May 15, 2020 14:54
--- NOTE | 2020-05-15 15:15 | NUR ---
DISCHARGE PLANNING REFERRED BACK TO [facility] SPOKE WITH [facility] WHO STATED UNABLE TO GIVE BED UNTIL TOMORROW (05/16/20) REMAINS COVID POSITIVE
--- NOTE | 2020-05-15 15:19 | NUR ---
NURSE NOTES: Per [facility] won't accept patients on weekend, CM will follow up tomorrow, Dr. Varma is aware.
[2020-05-15 16:00] VITALS: BP 148/76
--- NOTE | 2020-05-15 16:22 | General Progress Note ---
Subjective ROS Limited/Unobtainable: Yes - patient does not verbalized, not able to answer questions Allergies: Coded Allergies: No Known Allergies (Unverified , 05/07/20) Subjective No acute events overnight. Resting comfortably in bed. able to eat 50-75% of meals. VSS Objective Last 24 Hour Vital Signs Date Time Temp Pulse Resp B/P (MAP) Pulse Ox O2 Delivery O2 Flow Rate FiO2 05/15/20 12:00 97.8 68 19 146/78 (100) 96 05/15/20 09:00 Room Air 05/15/20 08:00 97.8 69 18 134/78 (96) 96 05/15/20 04:00 97.6 63 20 129/76 (93) 96 05/15/20 00:00 98.2 66 20 124/62 (82) 95 05/14/20 21:00 Room Air 05/14/20 20:00 98.1 72 18 120/65 (83) 97 Intake and Output 05/14/20 05/15/20 19:00 07:00 Intake Total 1185 ml 275 ml Output Total 800 ml 700 ml Balance 385 ml -425 ml Intake Oral 360 ml 200 ml IV Total 825 ml 75 ml Output Urine Total 800 ml 700 ml # Bowel Movements 1 Laboratory Tests 05/15/20 05:00: White Blood Count 2.6L, Red Blood Count 3.56L, Hemoglobin 10.1L, Hematocrit 32.2L, Mean Corpuscular Volume 90, Mean Corpuscular Hemoglobin 28.5, Mean Corpuscular Hemoglobin Concent 31.5L, Red Cell Distribution Width 14.1, Platelet Count 188, Mean Platelet Volume 4.6L, Neutrophils (%) (Auto) , Lymphocytes (%) (Auto) , Monocytes (%) (Auto) , Eosinophils (%) (Auto) , Basophils (%) (Auto) , Differential Total Cells Counted 100, Neutrophils % (Manual) 63, Lymphocytes % (Manual) 23, Monocytes % (Manual) 12H, Eosinophils % (Manual) 2, Basophils % (Manual) 0, Band Neutrophils 0, Platelet Estimate Adequate, Platelet Morphology Normal, Hypochromasia 1+, Anisocytosis 1+, Schistocytes Rare, Sodium Level 133L, Potassium Level 4.1, Chloride Level 101, Carbon Dioxide Level 25, Anion Gap 7, Blood Urea Nitrogen 3L, Creatinine 0.7, Estimat Glomerular Filtration Rate > 60, Glucose Level 121H, Calcium Level 8.0L, Magnesium Level 2.0 Height (Feet): 5 Height (Inches): 10.00 Weight (Pounds): 132 General Appearance: no apparent distress, alert, confused EENT: PERRL/EOMI Neck: non-tender, normal alignment Cardiovascular: normal rate, regular rhythm, no JVD Respiratory/Chest: lungs clear, normal breath sounds, no respiratory distress Abdomen: non tender, soft Extremities: other - UE and LE contractures Edema: no edema noted Arm (L), no edema noted Arm (R), no edema noted Leg (L), no edema noted Leg (R), no edema noted Pedal (L), no edema noted Pedal (R), no edema noted 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 Kovacs is a 64-year-old male past medical history of hypertension, CVA nonverbal at baseline, renal insufficiency who was brought in from SNF for hyponatremia. He recently tested positive for COVID-19. Patient is nonverbal at baseline and unable to provide much history. During his hospital admission patient was found to be hyponatremic in the 120s with mild DURGA prerenal azotemia that responded to fluids along with diet support. Patient also found to have Enterococcus UTI started on Augmentin per ID. He was also noted to have leukopenia, in which hematology and oncology Dr. Carrillo evaluated patient. Medically stable from heme-onc standpoint as long as ANC greater than 500 which has been throughout his admission. Throughout his admission patient remained hemodynamically stable with no respiratory compromise. Concerns about his oral intake and failure to thrive were evaluated and patient seen by GI along with nutritional consult. Patient found to eat 50 to 75% of all his meals with nursing assist. Patient's electrolytes abnormalities and DURGA have resolved. Patient otherwise remained medically stable for safe discharge back to SNF. # Hypovolemic hyponatremia 2/2 poor oral intake #Failure to thriveimproved # COVID-19 infection # UTI 2/2 Enterococcus #Leukopenia # Respiratory alkalosis - on ABG # Normocytic anemia likely secondary to ACD # DURGA 2/2 prerenal azotemia # Essential hypertension # ?Chronic encephalopathy # Hyperlipidemia # History of CVA # Nonverbal P: continue UTI Enterococcus will continue 2 more days of Augmentin 875 twice da patricia to complete a 7-day course Patient able to eat 50 to 75% of his meals when assisted by nurse, so please have administrative nursing supervisor assist with patient feeds at all times. Follow-up serial BMPs to monitor electrolytes and renal function Follow-up serial CBCs, ensure ANC is greater than 500 per heme-onc recs, monitor for signs of infectious processes I personally had a discussion with family, daughter Guillermina Kovacs for discussion about possible PEG in the future, she says she will talk to her family but never returned call Discharge to SNF Time spent on this encounter was 41 minutes which included 23 minutes of counseling and care coordination. I discussed with the nurse at bedside. Time of note may not reflect time patient was seen. Marcell Varma D.O May 15, 2020 16:22
--- NOTE | 2020-05-15 17:47 | Surgery Progress Note ---
Surgery Progress Note Subjective Symptoms: improved, tolerating diet, passing flatus, BM Objective Last 24 Hour Vital Signs Date Time Temp Pulse Resp B/P (MAP) Pulse Ox O2 Delivery O2 Flow Rate FiO2 05/15/20 12:00 97.8 68 19 146/78 (100) 96 05/15/20 09:00 Room Air 05/15/20 08:00 97.8 69 18 134/78 (96) 96 05/15/20 04:00 97.6 63 20 129/76 (93) 96 05/15/20 00:00 98.2 66 20 124/62 (82) 95 05/14/20 21:00 Room Air 05/14/20 20:00 98.1 72 18 120/65 (83) 97 I&O Intake and Output 05/14/20 05/15/20 19:00 07:00 Intake Total 1185 ml 275 ml Output Total 800 ml 700 ml Balance 385 ml -425 ml Intake Oral 360 ml 200 ml IV Total 825 ml 75 ml Output Urine Total 800 ml 700 ml # Bowel Movements 1 Dressing: saturated Cardiovascular: RSR Respiratory: decreased breath sounds Abdomen: non-tender, present bowel sounds, non-distended Extremities: no tenderness, no cyanosis Laboratory Tests Test 05/15/20 05:00 White Blood Count 2.6 K/UL (4.8-10.8) L Red Blood Count 3.56 M/UL (4.70-6.10) L Hemoglobin 10.1 G/DL (14.2-18.0) L Hematocrit 32.2 % (42.0-52.0) L Mean Corpuscular Volume 90 FL (80-99) Mean Corpuscular Hemoglobin 28.5 PG (27.0-31.0) Mean Corpuscular Hemoglobin Concent 31.5 G/DL (32.0-36.0) L Red Cell Distribution Width 14.1 % (11.6-14.8) Platelet Count 188 K/UL (150-450) Mean Platelet Volume 4.6 FL (6.5-10.1) L Neutrophils (%) (Auto) % (45.0-75.0) Lymphocytes (%) (Auto) % (20.0-45.0) Monocytes (%) (Auto) % (1.0-10.0) Eosinophils (%) (Auto) % (0.0-3.0) Basophils (%) (Auto) % (0.0-2.0) Differential Total Cells Counted 100 Neutrophils % (Manual) 63 % (45-75) Lymphocytes % (Manual) 23 % (20-45) Monocytes % (Manual) 12 % (1-10) H Eosinophils % (Manual) 2 % (0-3) Basophils % (Manual) 0 % (0-2) Band Neutrophils 0 % (0-8) Platelet Estimate Adequate Platelet Morphology Normal Hypochromasia 1+ Anisocytosis 1+ Schistocytes Rare Sodium Level 133 MMOL/L (136-145) L Potassium Level 4.1 MMOL/L (3.5-5.1) Chloride Level 101 MMOL/L (98-107) Carbon Dioxide Level 25 MMOL/L (21-32) Anion Gap 7 mmol/L (5-15) Blood Urea Nitrogen 3 mg/dL (7-18) L Creatinine 0.7 MG/DL (0.55-1.30) Estimat Glomerular Filtration Rate > 60 mL/min (>60) Glucose Level 121 MG/DL (74-106) H Calcium Level 8.0 MG/DL (8.5-10.1) L Magnesium Level 2.0 MG/DL (1.8-2.4) Plan Problems: (1) Hyponatremia (2) UTI (urinary tract infection) (3) COVID-19 (4) Abdominal pain Assessment & Plan: KUB noted likely constipated recommend bowel regimen hold on further imaging okay for diet needs more oral intake having bowel function improved activity as tolerated will follow with exam and recs thank you penile soft tissue pelvic swelling. likely seroma. does not seem to be abscess. will monitor toth causing breakdown of penile meatus chronic contractures d/c planning Abdomen: Nonobstructive but nonspecific bowel gas pattern. Moderate to large amount of stool. No free air. Bones: Chronic appearing deformity of the proximal right femur. Soft tissues: Normal. IMPRESSION: Nonobstructive but nonspecific bowel gas pattern. Moderate to large amount of stool. Liver: Liver length 12.1 cm. No intrahepatic bile duct dilation. Flow in the portal vein is towards the liver. Gallbladder: Unremarkable. No gallstones. Common bile duct: Common bile duct measures 7 mm. No stones. Visualized right kidney is unremarkable. No hydronephrosis. Pancreas not well-visualized. IMPRESSION: Mild dilated common bile duct measuring 7 mm. Liver and gallbladder are within normal limits. Harry Brown May 15, 2020 17:47
--- NOTE | 2020-05-15 18:00 | NUR ---
NURSE NOTES: Patient had loose BM earlier and held docusate. Patient is clean and dry, not in respiratory/cardiac distress. No skin issues.
--- NOTE | 2020-05-15 19:50 | Infectious Diseases Prog Note ---
Assessment/Plan Assessment/Plan ASSESSMENT AND PLAN: 1. enterococcus uti, sepsis, covid-19 infection, fevers, weakness, chest x-ray negative for pna severe leukopenia likely secondary to covid - augmentin po x 1 day - monitor labs - monitor temperatures - clinically improved - fevers improved 2. Hyponatremia. Continue IV fluids per Renal and Medicine. 3. The patient is anemic. 4. Possible hyperlipidemia or dyslipidemia. 5. CVA. 6. Weakness. 7. Nonverbal. 8. Hypertension. Blood pressure treatment per primary care team. 9. Renal insufficiency. 10. Skin care per protocol. 11. The patient has no known drug allergies. 12. Social history is negative. 13. Family history is noncontributory. 14. MAR is noted. 15. Case discussed with RN. 16. Continue treatment per primary consultants. Subjective Constitutional: Reports: fatigue; Denies: fever Respiratory: Denies: shortness of breath Cardiovascular: Denies: chest pain Gastrointestinal/Abdominal: Denies: nausea, vomiting, diarrhea Genitourinary: Reports: other - + toth Neurologic: Reports: weakness, other - more alert Psychiatric: Reports: other - NA Skin: Denies: rash Hematologic: Denies: bleeding Musculoskeletal: Denies: pain Allergies: Coded Allergies: No Known Allergies (Unverified , 05/07/20) Objective Last 24 Hour Vital Signs Date Time Temp Pulse Resp B/P (MAP) Pulse Ox O2 Delivery O2 Flow Rate FiO2 05/15/20 16:00 98.2 75 18 148/76 (100) 96 05/15/20 12:00 97.8 68 19 146/78 (100) 96 05/15/20 09:00 Room Air 05/15/20 08:00 97.8 69 18 134/78 (96) 96 05/15/20 04:00 97.6 63 20 129/76 (93) 96 05/15/20 00:00 98.2 66 20 124/62 (82) 95 05/14/20 21:00 Room Air 05/14/20 20:00 98.1 72 18 120/65 (83) 97 Height (Feet): 5 Height (Inches): 10.00 Weight (Pounds): 132 General Appearance: no acute distress HEENT: normocephalic, atraumatic, anicteric, mucous membranes moist Respiratory/Chest: lungs clear, normal breath sounds, no respiratory distress, no accessory muscle use Cardiovascular: normal rate, regular rhythm, no gallop/murmur, no JVD Abdomen: normal bowel sounds, soft, non tender, no organomegaly, non distended Genitourinary: other - + toth - urine slt cloudy Extremities: no cyanosis Skin: no rash 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 Comparison: Chest radiograph dated 05/07/2020 and 05/08/2020 Findings: Examination is limited due to overlying right arm shadow. The cardiomediastinal silhouette is unchanged in appearance. No new airspace consolidation. No new pleural effusion or pneumothorax. Redemonstration of right rib deformities. IMPRESSION: Limited examination due to overlying arm shadows. Within these limitations, no definite new airspace consolidation. Microbiology Date/Time Source Procedure Growth Status 05/15/20 10:35 Nasopharynx SARS-CoV-2 RdRp Gene Assay - Final Complete 05/09/20 12:00 Blood Blood Culture - Final NO GROWTH AFTER 5 DAYS Complete 05/07/20 18:40 Indwelling Cath Urine Culture - Final Enterococcus Faecalis Complete 05/07/20 13:20 Rectum VRE Culture - Final NO VANCOMYCIN RESISTANT ENTEROCOCCUS ... Complete Microbiology Date/Time Source Procedure Growth Status 05/15/20 10:35 Nasopharynx SARS-CoV-2 RdRp Gene Assay - Final Complete Laboratory Tests Test 05/15/20 05:00 White Blood Count 2.6 K/UL (4.8-10.8) L Red Blood Count 3.56 M/UL (4.70-6.10) L Hemoglobin 10.1 G/DL (14.2-18.0) L Hematocrit 32.2 % (42.0-52.0) L Mean Corpuscular Volume 90 FL (80-99) Mean Corpuscular Hemoglobin 28.5 PG (27.0-31.0) Mean Corpuscular Hemoglobin Concent 31.5 G/DL (32.0-36.0) L Red Cell Distribution Width 14.1 % (11.6-14.8) Platelet Count 188 K/UL (150-450) Mean Platelet Volume 4.6 FL (6.5-10.1) L Neutrophils (%) (Auto) % (45.0-75.0) Lymphocytes (%) (Auto) % (20.0-45.0) Monocytes (%) (Auto) % (1.0-10.0) Eosinophils (%) (Auto) % (0.0-3.0) Basophils (%) (Auto) % (0.0-2.0) Differential Total Cells Counted 100 Neutrophils % (Manual) 63 % (45-75) Lymphocytes % (Manual) 23 % (20-45) Monocytes % (Manual) 12 % (1-10) H Eosinophils % (Manual) 2 % (0-3) Basophils % (Manual) 0 % (0-2) Band Neutrophils 0 % (0-8) Platelet Estimate Adequate Platelet Morphology Normal Hypochromasia 1+ Anisocytosis 1+ Schistocytes Rare Sodium Level 133 MMOL/L (136-145) L Potassium Level 4.1 MMOL/L (3.5-5.1) Chloride Level 101 MMOL/L (98-107) Carbon Dioxide Level 25 MMOL/L (21-32) Anion Gap 7 mmol/L (5-15) Blood Urea Nitrogen 3 mg/dL (7-18) L Creatinine 0.7 MG/DL (0.55-1.30) Estimat Glomerular Filtration Rate > 60 mL/min (>60) Glucose Level 121 MG/DL (74-106) H Calcium Level 8.0 MG/DL (8.5-10.1) L Magnesium Level 2.0 MG/DL (1.8-2.4) Current Medications Medications (Trade) Dose Ordered Sig/Luis E Route PRN Reason Start Time Stop Time Status Last Admin Dose Admin Acetaminophen (Tylenol) 325 mg Q6H PRN RECTAL Temp >100.5 05/09/20 10:45 06/08/20 10:44 05/09/20 11:03 Acetaminophen (Tylenol) 650 mg Q6H PRN ORAL Temp >100.5 05/10/20 00:15 06/09/20 00:14 Amoxicillin/ Clavulanate Potassium (Augmentin) 875 mg EVERY 12 HOURS ORAL 05/11/20 21:00 05/18/20 20:59 05/15/20 09:14 Atorvastatin Calcium (Lipitor) 80 mg BEDTIME ORAL 05/07/20 21:00 08/05/20 20:59 05/14/20 20:37 Bisacodyl (Dulcolax) 10 mg DAILYPRN PRN RECTAL Constipation 05/07/20 15:45 08/05/20 15:44 Bupropion HCl (Wellbutrin SR) 150 mg DAILY ORAL 05/08/20 11:00 06/07/20 10:59 05/15/20 09:14 Dextrose (Dextrose 50%) 25 ml Q30M PRN IV Hypoglycemia 05/07/20 15:45 08/05/20 15:44 Dextrose (Dextrose 50%) 50 ml Q30M PRN IV Hypoglycemia 05/07/20 15:45 08/05/20 15:44 Docusate Sodium (Colace) 100 mg TWICE A DAY ORAL 05/08/20 09:00 06/07/20 08:59 05/14/20 17:08 Dronabinol (Marinol) 2.5 mg BID ORAL 05/11/20 09:00 08/09/20 08:59 05/15/20 17:37 Heparin Sodium (Porcine) (Heparin 5000 units/ml) 5,000 units EVERY 12 HOURS SUBQ 05/08/20 09:00 06/22/20 08:59 05/15/20 09:15 Pantoprazole (Protonix) 40 mg ACBREAKFAST ORAL 05/14/20 06:30 06/13/20 06:29 05/15/20 06:01 Polyethylene Glycol (Miralax) 17 gm BEDTIME ORAL 05/08/20 21:00 06/07/20 20:59 05/12/20 21:55 Potassium Chloride 10 meq/ Dextrose/Sodium Chloride 1,005 ml @ 75 mls/hr [id number] IV 05/12/20 02:00 06/11/20 01:59 05/15/20 12:29 Nickolas Goldstein MD May 15, 2020 19:50
[2020-05-15 20:00] VITALS: BP 158/85
[2020-05-15] MEDS: Miralax 17gm pkt ORAL SCH (22:10)
[2020-05-15] MEDS: Atorvastatin 80mg tab ORAL SCH (22:10)
[2020-05-16] VITALS: BP 136/83
[2020-05-16 04:00] VITALS: BP 130/76
--- NOTE | 2020-05-16 06:55 | Hematology/Onc Progress Note ---
Assessment/Plan Assessment/Plan Assessment/Plan: # Leukopenia with hx of recent COVID-19 infection, pna --> continue ABX per id --> smear has been noted --> meds reviewed --> wbc 3.9-->2.4-->3.4-->2.9-->2.6 --> consider neupogen as needed # Anemia due to iron deficiency --> iv iron has been started --> anemia panel reviewed --> also with hematuria --> hgb 11-->10.7-->11->10.7-->10.1 # Respiratory alkalosis - on ABG --> No indication for dexamethasone or remdesivir at this time per ID --> per ID and pulm # Hyponatremia - Na 126 on admission --> per renal --> ivfs # Renal insufficiency --> Nephrology consult Dr. Aranda - BMP daily # UTI --> CTX per ID ABX augmentin # HTN # Dyslipidemia # Hx of CVA # Dvt ppx heparin sq Appreciate consultation and dw PCP Subjective HEENT: Denies: no symptoms, eye pain, blurred vision, tearing, double vision, ear pain, ear discharge, nose pain, nose congestion, throat pain, throat swelling, mouth pain, mouth swelling, other Cardiovascular: Denies: no symptoms, chest pain, edema, irregular heart rate, lightheadedness, palpitations, syncope, other Respiratory: Denies: no symptoms, cough, shortness of breath, SOB with excertion, SOB at rest, sputum, wheezing, other Gastrointestinal/Abdominal: Denies: no symptoms, abdomen distended, abdominal pain, black stools, tarry stools, blood in stool, constipated, diarrhea, difficulty swallowing, nausea, poor appetite, poor fluid intake, rectal bleeding, vomiting, other Genitourinary: Denies: no symptoms, burning, discharge, frequency, flank pain, hematuria, incontinence, pain, urgency, other Neurologic/Psychiatric: Denies: no symptoms, anxiety, depressed, emotional problems, headache, numbness, paresthesia, pre-existing deficit, seizure, tingling, tremors, weakness, other Endocrine: Denies: no symptoms, excessive sweating, flushing, intolerance to cold, intolerance to heat, increased hunger, increased thirst, increased urine, unexplained weight gain, unexplained weight loss, other Allergies: Coded Allergies: No Known Allergies (Unverified , 05/07/20) Subjective 05/12 no events, on abx, no bleeding, wbc is better, no night sweats 05/13 labs reviewed, meds noted, wbc 2.9, no bleeding, on iso 05/15 meds noted, no bleeding, dw rn, no major events wbc 2.6 05/16 labs reviewed, meds noted, on augmentin, labs remains noted Objective Objective Current Medications Medications (Trade) Dose Ordered Sig/Luis E Route PRN Reason Start Time Stop Time Status Last Admin Dose Admin Acetaminophen (Tylenol) 325 mg Q6H PRN RECTAL Temp >100.5 05/09/20 10:45 06/08/20 10:44 05/09/20 11:03 Acetaminophen (Tylenol) 650 mg Q6H PRN ORAL Temp >100.5 05/10/20 00:15 06/09/20 00:14 Amoxicillin/ Clavulanate Potassium (Augmentin) 875 mg EVERY 12 HOURS ORAL 05/11/20 21:00 05/18/20 20:59 05/15/20 22:09 Atorvastatin Calcium (Lipitor) 80 mg BEDTIME ORAL 05/07/20 21:00 08/05/20 20:59 05/15/20 22:10 Bisacodyl (Dulcolax) 10 mg DAILYPRN PRN RECTAL Constipation 05/07/20 15:45 08/05/20 15:44 Bupropion HCl (Wellbutrin SR) 150 mg DAILY ORAL 05/08/20 11:00 06/07/20 10:59 05/15/20 09:14 Dextrose (Dextrose 50%) 25 ml Q30M PRN IV Hypoglycemia 05/07/20 15:45 08/05/20 15:44 Dextrose (Dextrose 50%) 50 ml Q30M PRN IV Hypoglycemia 05/07/20 15:45 08/05/20 15:44 Docusate Sodium (Colace) 100 mg TWICE A DAY ORAL 05/08/20 09:00 06/07/20 08:59 05/14/20 17:08 Dronabinol (Marinol) 2.5 mg BID ORAL 05/11/20 09:00 08/09/20 08:59 05/15/20 17:37 Heparin Sodium (Porcine) (Heparin 5000 units/ml) 5,000 units EVERY 12 HOURS SUBQ 05/08/20 09:00 06/22/20 08:59 05/15/20 22:41 Pantoprazole (Protonix) 40 mg ACBREAKFAST ORAL 05/14/20 06:30 06/13/20 06:29 05/15/20 06:01 Polyethylene Glycol (Miralax) 17 gm BEDTIME ORAL 05/08/20 21:00 06/07/20 20:59 05/15/20 22:10 Potassium Chloride 10 meq/ Dextrose/Sodium Chloride 1,005 ml @ 75 mls/hr [id number] IV 05/12/20 02:00 06/11/20 01:59 05/15/20 23:48 Last 24 Hour Vital Signs Date Time Temp Pulse Resp B/P (MAP) Pulse Ox O2 Delivery O2 Flow Rate FiO2 05/16/20 04:00 98.2 69 16 130/76 (94) 95 05/16/20 00:00 97.9 70 18 136/83 (100) 99 05/15/20 21:00 Room Air 05/15/20 20:00 97.9 68 17 158/85 (109) 98 05/15/20 16:00 98.2 75 18 148/76 (100) 96 05/15/20 12:00 97.8 68 19 146/78 (100) 96 05/15/20 09:00 Room Air 05/15/20 08:00 97.8 69 18 134/78 (96) 96 05/15/20 04:00 97.6 63 20 129/76 (93) 96 05/15/20 00:00 98.2 66 20 124/62 (82) 95 05/14/20 21:00 Room Air 05/14/20 20:00 98.1 72 18 120/65 (83) 97 05/14/20 16:00 97.8 85 18 134/78 (96) 95 05/14/20 12:00 97.6 78 18 138/49 (78) 95 05/14/20 08:45 Room Air 05/14/20 08:03 97.8 77 18 119/84 (96) 100 Intake and Output 05/15/20 05/16/20 19:00 07:00 Intake Total 1220 ml Output Total 800 ml Balance 420 ml Intake Oral 360 ml IV Total 860 ml Output Urine Total 800 ml # Bowel Movements 1 Labs Test 05/13/20 16:43 05/14/20 04:00 05/15/20 05:00 POC Whole Blood Glucose 185 MG/DL (74-106) White Blood Count 2.8 K/UL (4.8-10.8) 2.6 K/UL (4.8-10.8) Red Blood Count 3.63 M/UL (4.70-6.10) 3.56 M/UL (4.70-6.10) Hemoglobin 10.3 G/DL (14.2-18.0) 10.1 G/DL (14.2-18.0) Hematocrit 32.2 % (42.0-52.0) 32.2 % (42.0-52.0) Mean Corpuscular Volume 89 FL (80-99) 90 FL (80-99) Mean Corpuscular Hemoglobin 28.4 PG (27.0-31.0) 28.5 PG (27.0-31.0) Mean Corpuscular Hemoglobin Concent 32.0 G/DL (32.0-36.0) 31.5 G/DL (32.0-36.0) Red Cell Distribution Width 13.4 % (11.6-14.8) 14.1 % (11.6-14.8) Platelet Count 180 K/UL (150-450) 188 K/UL (150-450) Mean Platelet Volume 4.4 FL (6.5-10.1) 4.6 FL (6.5-10.1) Neutrophils (%) (Auto) % (45.0-75.0) % (45.0-75.0) Lymphocytes (%) (Auto) % (20.0-45.0) % (20.0-45.0) Monocytes (%) (Auto) % (1.0-10.0) % (1.0-10.0) Eosinophils (%) (Auto) % (0.0-3.0) % (0.0-3.0) Basophils (%) (Auto) % (0.0-2.0) % (0.0-2.0) Differential Total Cells Counted 100 100 Neutrophils % (Manual) 67 % (45-75) 63 % (45-75) Lymphocytes % (Manual) 28 % (20-45) 23 % (20-45) Monocytes % (Manual) 4 % (1-10) 12 % (1-10) Eosinophils % (Manual) 1 % (0-3) 2 % (0-3) Basophils % (Manual) 0 % (0-2) 0 % (0-2) Band Neutrophils 0 % (0-8) 0 % (0-8) Platelet Estimate Adequate Adequate Platelet Morphology Normal Normal Hypochromasia 1+ 1+ Sodium Level 131 MMOL/L (136-145) 133 MMOL/L (136-145) Potassium Level 4.2 MMOL/L (3.5-5.1) 4.1 MMOL/L (3.5-5.1) Chloride Level 99 MMOL/L (98-107) 101 MMOL/L (98-107) Carbon Dioxide Level 24 MMOL/L (21-32) 25 MMOL/L (21-32) Anion Gap 8 mmol/L (5-15) 7 mmol/L (5-15) Blood Urea Nitrogen 7 mg/dL (7-18) 3 mg/dL (7-18) Creatinine 0.8 MG/DL (0.55-1.30) 0.7 MG/DL (0.55-1.30) Estimat Glomerular Filtration Rate > 60 mL/min (>60) > 60 mL/min (>60) Glucose Level 77 MG/DL (74-106) 121 MG/DL (74-106) Calcium Level 7.8 MG/DL (8.5-10.1) 8.0 MG/DL (8.5-10.1) Phosphorus Level 2.7 MG/DL (2.5-4.9) Magnesium Level 1.7 MG/DL (1.8-2.4) 2.0 MG/DL (1.8-2.4) Anisocytosis 1+ Schistocytes Rare Micro Microbiology Date/Time Source Procedure Growth Status 05/15/20 10:35 Nasopharynx SARS-CoV-2 RdRp Gene Assay - Final Complete Height (Feet): 5 Height (Inches): 10.00 Weight (Pounds): 132 Objective Physical Exam General Appearance: no apparent distress, thin, nv++ HEENT: normocephalic, atraumatic Neck: non-tender, supple, normal inspection Respiratory/Chest: lungs clear, normal breath sounds Cardiovascular/Chest: normal rate, regular rhythm, no gallop/murmur Abdomen: soft, no organomegaly Extremities: other - severe contractures ++ Skin Exam: normal pigmentation Neurologic: motor weakness Musculoskeletal: atrophy Gu: +Shaji Pittman MD May 16, 2020 06:55
--- NOTE | 2020-05-16 07:36 | NUR ---
HAND-OFF: Report given to CARO Silva.
--- NOTE | 2020-05-16 07:46 | NUR ---
NURSE NOTES: Received report from Alice, RN. Received patient in bed,awake, non verbal, patient is contracted x4 . patient is 1:1 feeder, lung sounds are clear. Patient on NC 2L/m breathing is even and unlabored. No s/s of pain or discomfort per FLACC pain scale.Bed is in lowest position and locked. Will continue plan of care.
--- NOTE | 2020-05-16 07:52 | General Progress Note ---
Subjective ROS Limited/Unobtainable: No Allergies: Coded Allergies: No Known Allergies (Unverified , 05/07/20) Objective Last 24 Hour Vital Signs Date Time Temp Pulse Resp B/P (MAP) Pulse Ox O2 Delivery O2 Flow Rate FiO2 05/16/20 04:00 98.2 69 16 130/76 (94) 95 05/16/20 00:00 97.9 70 18 136/83 (100) 99 05/15/20 21:00 Room Air 05/15/20 20:00 97.9 68 17 158/85 (109) 98 05/15/20 16:00 98.2 75 18 148/76 (100) 96 05/15/20 12:00 97.8 68 19 146/78 (100) 96 05/15/20 09:00 Room Air 05/15/20 08:00 97.8 69 18 134/78 (96) 96 Intake and Output 05/15/20 05/16/20 19:00 07:00 Intake Total 1220 ml Output Total 800 ml 350 ml Balance 420 ml -350 ml Intake Oral 360 ml IV Total 860 ml Output Urine Total 800 ml 350 ml # Bowel Movements 1 1 Height (Feet): 5 Height (Inches): 10.00 Weight (Pounds): 132 General Appearance: no apparent distress EENT: normal ENT inspection Neck: supple Cardiovascular: normal rate Respiratory/Chest: decreased breath sounds Abdomen: normal bowel sounds, non tender, soft Extremities: non-tender Assessment/Plan Assessment/Plan: 1. Pneumonia. 2. Hyponatremia. 3. UTI. 4. Constipation. 5. Normocytic anemia. 6. History of CVA. 7. History of Covid 8. History of hypercholesteremia. 9. History of BPH. bowel regimen stable H&H stool ob neg passed swallow eval on marinol hematology in put appreciated iv iron repeat labs will fu Alejandro Jimenez MD May 16, 2020 07:52
[2020-05-16 08:00] VITALS: BP 126/66
[2020-05-16] MEDS: Heparin 5000 units/ml inj SUBQ SCH (08:46)
[2020-05-16] MEDS: Docusate 100mg cap ORAL SCH (08:49)
[2020-05-16] MEDS: Dronabinol 2.5mg Cap ORAL SCH (08:49)
[2020-05-16] MEDS: Augmentin 875mg Tab ORAL SCH (08:49)
[2020-05-16] MEDS: BuPROPion SR 150mg tab ORAL SCH (08:49)
--- NOTE | 2020-05-16 10:16 | Nephrology Progress Note ---
Assessment/Plan Plan #Hyponatremia- hypovolumic #COVID infection #UTI #HLD #HTN #h/o CVA #nonverbal #failure to thrive -GI eval for consideration of PEG PLACEMENT - IVF on D5NS for now - calorie count - consider PEG - ID eval - antibiotics per ID - follow cx - monitor sodium - GI eval - swallow eval - pulmonary eval - monitor UOP - replete lytes prn Subjective ROS Limited/Unobtainable: Yes Subjective GI eval for consideration of PEG PLACEMENT sodium 130 today mag low repleted afebrile vitals stable Objective Objective Last 24 Hour Vital Signs Date Time Temp Pulse Resp B/P (MAP) Pulse Ox O2 Delivery O2 Flow Rate FiO2 05/16/20 09:00 Room Air 05/16/20 08:00 98.4 76 18 126/66 (86) 98 05/16/20 04:00 98.2 69 16 130/76 (94) 95 05/16/20 00:00 97.9 70 18 136/83 (100) 99 05/15/20 21:00 Room Air 05/15/20 20:00 97.9 68 17 158/85 (109) 98 05/15/20 16:00 98.2 75 18 148/76 (100) 96 05/15/20 12:00 97.8 68 19 146/78 (100) 96 Intake and Output 05/15/20 05/16/20 19:00 07:00 Intake Total 1220 ml Output Total 800 ml 350 ml Balance 420 ml -350 ml Intake Oral 360 ml IV Total 860 ml Output Urine Total 800 ml 350 ml # Bowel Movements 1 1 Height (Feet): 5 Height (Inches): 10.00 Weight (Pounds): 132 Objective General Appearance: no apparent distress Lines, tubes and drains: peripheral HEENT: normocephalic, atraumatic Neck: non-tender Respiratory/Chest: chest wall non-tender, normal breath sounds Extremities: normal range of motion Skin Exam: normal pigmentation Barak Aranda M.D. May 16, 2020 10:16
--- NOTE | 2020-05-16 10:18 | Pulmonology Progress Note ---
Subjective ROS Limited/Unobtainable: Yes Interval Events: None new Constitutional: Reports: fatigue; Denies: fever HEENT: Repors: no symptoms Respiratory: Reports: no symptoms Cardiovascular: Reports: no symptoms Gastrointestinal/Abdominal: Denies: nausea, vomiting, diarrhea Psychiatric: Reports: other - NA Skin: Denies: rash Musculoskeletal: Denies: pain Allergies: Coded Allergies: No Known Allergies (Unverified , 05/07/20) Objective Last 24 Hour Vital Signs Date Time Temp Pulse Resp B/P (MAP) Pulse Ox O2 Delivery O2 Flow Rate FiO2 05/16/20 09:00 Room Air 05/16/20 08:00 98.4 76 18 126/66 (86) 98 05/16/20 04:00 98.2 69 16 130/76 (94) 95 05/16/20 00:00 97.9 70 18 136/83 (100) 99 05/15/20 21:00 Room Air 05/15/20 20:00 97.9 68 17 158/85 (109) 98 05/15/20 16:00 98.2 75 18 148/76 (100) 96 05/15/20 12:00 97.8 68 19 146/78 (100) 96 Intake and Output 05/15/20 05/16/20 19:00 07:00 Intake Total 1220 ml Output Total 800 ml 350 ml Balance 420 ml -350 ml Intake Oral 360 ml IV Total 860 ml Output Urine Total 800 ml 350 ml # Bowel Movements 1 1 General Appearance: no acute distress HEENT: normocephalic Respiratory: chest wall non-tender, lungs clear Cardiovascular: normal peripheral pulses Abdomen: normal bowel sounds Microbiology Date/Time Source Procedure Growth Status 05/15/20 10:35 Nasopharynx SARS-CoV-2 RdRp Gene Assay - Final Complete Current Medications Medications (Trade) Dose Ordered Sig/Luis E Route PRN Reason Start Time Stop Time Status Last Admin Dose Admin Acetaminophen (Tylenol) 325 mg Q6H PRN RECTAL Temp >100.5 05/09/20 10:45 06/08/20 10:44 05/09/20 11:03 Acetaminophen (Tylenol) 650 mg Q6H PRN ORAL Temp >100.5 05/10/20 00:15 06/09/20 00:14 Amoxicillin/ Clavulanate Potassium (Augmentin) 875 mg EVERY 12 HOURS ORAL 05/11/20:00 05/18/20 20:59 05/16/20 08:49 Atorvastatin Calcium (Lipitor) 80 mg BEDTIME ORAL 05/07/20 21:00 08/05/20 20:59 05/15/20 22:10 Bisacodyl (Dulcolax) 10 mg DAILYPRN PRN RECTAL Constipation 05/07/20 15:45 08/05/20 15:44 Bupropion HCl (Wellbutrin SR) 150 mg DAILY ORAL 05/08/20 11:00 06/07/20 10:59 05/16/20 08:49 Dextrose (Dextrose 50%) 25 ml Q30M PRN IV Hypoglycemia 05/07/20 15:45 08/05/20 15:44 Dextrose (Dextrose 50%) 50 ml Q30M PRN IV Hypoglycemia 05/07/20 15:45 08/05/20 15:44 Docusate Sodium (Colace) 100 mg TWICE A DAY ORAL 05/08/20 09:00 06/07/20 08:59 05/16/20 08:49 Dronabinol (Marinol) 2.5 mg BID ORAL 05/11/20 09:00 08/09/20 08:59 05/16/20 08:49 Heparin Sodium (Porcine) (Heparin 5000 units/ml) 5,000 units EVERY 12 HOURS SUBQ 05/08/20 09:00 06/22/20 08:59 05/16/20 08:46 Pantoprazole (Protonix) 40 mg ACBREAKFAST ORAL 05/14/20 06:30 06/13/20 06:29 05/15/20 06:01 Polyethylene Glycol (Miralax) 17 gm BEDTIME ORAL 05/08/20 21:00 06/07/20 20:59 05/15/20 22:10 Potassium Chloride 10 meq/ Dextrose/Sodium Chloride 1,005 ml @ 75 mls/hr [id number] IV 05/12/20 02:00 06/11/20 01:59 05/15/20 23:48 Assessment/Plan Assessment/Plan IMPRESSION: 1. COVID-19 pneumonia. 2. Hyponatremia. 3. CVA. 4. Hyperlipidemia. DISCUSSION: The patient is saturating well on room air. I will follow as city weighmaster. No new recommendations. Isiah Coffey Omar Syed MD May 16, 2020 10:18
--- NOTE | 2020-05-16 10:27 | General Progress Note ---
Subjective ROS Limited/Unobtainable: Yes - Patient nonverbal at baseline unable to answer any questions or follow commands Allergies: Coded Allergies: No Known Allergies (Unverified , 05/07/20) Subjective No acute events overnight. Resting comfortably in bed. Appetite improving, eating about 50 to 75% of meals now per nurse. Objective Last 24 Hour Vital Signs Date Time Temp Pulse Resp B/P (MAP) Pulse Ox O2 Delivery O2 Flow Rate FiO2 05/16/20 09:00 Room Air 05/16/20 08:00 98.4 76 18 126/66 (86) 98 05/16/20 04:00 98.2 69 16 130/76 (94) 95 05/16/20 00:00 97.9 70 18 136/83 (100) 99 05/15/20 21:00 Room Air 05/15/20 20:00 97.9 68 17 158/85 (109) 98 05/15/20 16:00 98.2 75 18 148/76 (100) 96 05/15/20 12:00 97.8 68 19 146/78 (100) 96 Intake and Output 05/15/20 05/16/20 19:00 07:00 Intake Total 1220 ml Output Total 800 ml 350 ml Balance 420 ml -350 ml Intake Oral 360 ml IV Total 860 ml Output Urine Total 800 ml 350 ml # Bowel Movements 1 1 Height (Feet): 5 Height (Inches): 10.00 Weight (Pounds): 132 General Appearance: no apparent distress, alert, confused EENT: PERRL/EOMI, normal ENT inspection Neck: normal alignment, supple Cardiovascular: normal rate, regular rhythm, no JVD Respiratory/Chest: lungs clear, normal breath sounds Abdomen: normal bowel sounds, non tender, soft Extremities: other - Bilateral upper and lower extremity contractures Edema: no edema noted Arm (L), no edema noted Arm (R), no edema noted Leg (L), no edema noted Leg (R), no edema noted Pedal (L), no edema noted Pedal (R), no edema noted Generalized 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 Kovacs is a 64-year-old male past medical history of hypertension, CVA nonverbal at baseline, renal insufficiency who was brought in from SNF for hyponatremia. He recently tested positive for COVID-19. Patient is nonverbal at baseline and unable to provide much history. During his hospital admission patient was found to be hyponatremic in the 120s with mild DURGA prerenal azotemia that responded to fluids along with diet support. Patient also found to have Enterococcus UTI started on Augmentin per ID. He was also noted to have leukopenia, in which hematology and oncology Dr. Carrillo evaluated patient. Medically stable from heme-onc standpoint as long as ANC greater than 500 which has been throughout his admission. Throughout his admission patient remained hemodynamically stable with no respiratory compromise. Concerns about his oral intake and failure to thrive were evaluated and patient seen by GI along with nutritional consult. Patient found to eat 50 to 75% of all his meals with nursing assist. Patient's electrolytes abnormalities and DURGA have resolved. Patient otherwise remained medically stable for safe discharge back to SNF. # Hypovolemic hyponatremia 2/2 poor oral intake #Failure to thriveimproved # COVID-19 infection # UTI 2/2 Enterococcus #Leukopenia # Respiratory alkalosis - on ABG # Normocytic anemia likely secondary to ACD # DURGA 2/2 prerenal azotemia # Essential hypertension # ?Chronic encephalopathy # Hyperlipidemia # History of CVA # Nonverbal P: continue UTI Enterococcus will continue 1 more days of Augmentin 875 twice daily to complete a 7-day course Patient able to eat 50 to 75% of his meals when assisted by nurse, so please have nursing staff development coordinator assist with patient feeds at all times. ANC greater than 1500 Continue Marinol, Wellbutrin I personally had a discussion with family, daughter Guillermina Kovacs for discussion about possible PEG in the future, she says she will talk to her family but never returned call Discharge to SNF once bed ready Time spent on this encounter was 40 minutes which included 23 minutes of counseling and care coordination. I discussed with the nurse at bedside. Time of note may not reflect time patient was seen. Marcell Varma D.O May 16, 2020 10:27
[2020-05-16 12:00] VITALS: BP 145/73
--- NOTE | 2020-05-16 12:20 | NUR ---
RD ASSESSMENT & RECOMMENDATIONS SEE CARE ACTIVITY FOR COMPLETE ASSESSMENT DAILY ESTIMATED NEEDS: Needs based on Pulmonary 60kg 25-35 kcals/kg 3434-3268 total kcals 1-1.5 g protein/kg 60-90 g total protein 25-30 mL/kg 8895-4609 total fluid mLs NUTRITION DIAGNOSIS: Swallowing difficulty r/t h/o CVA, as evidenced by pt is non verbal, seen by [employer] w/ rec for pureed moist w/ NTL. CURRENT DIET:cardiac/ pureed w/ NTL PO DIET RECOMMENDATIONS: Liberalized Regular diet/ texture per [employer] ADDITIONAL RECOMMENDATIONS: 1) Ensure Enlive w/ meals added 2) Nikolas Count x 48 hrs completed- incomplete data fair/variable intake at this time rec liberalized regular diet, continue Ensure Enlive TID w/ meals MVI x 1 as supplement, continue Marinol as per MD 3) Monitor lytes, replete as needed .
--- NOTE | 2020-05-16 12:44 | NUR ---
*-*DISCHARGE PLANNED*-* PATIENT HAS BEEN ACCEPTED AND WILL BE DISCHARGED BACK TO: [facility] P: [phone] FOR NURSE TO NURSE REPORT. ROOM# 7.[facility] SET FOR 1:l45/1345 S/W SUMAYA [id number] S/W PATIENTS DAUGHTER, CALEB DUMAS, WHO IS IN AGREEMENT WITH DISCHARGE PLAN.
--- NOTE | 2020-05-16 13:35 | Discharge Summary ---
Discharge Summary Hospital Course Date of Admission May 07, 2020 at 13:49 Date of Discharge Admitting Diagnosis Hyponatremia HPI Nico Kovacs is a 64 year old male who was admitted on May 07, 2020 at 13:49 for Hyponatremia Hospital Course Mr. Kovacs is a 64-year-old male past medical history of hypertension, CVA nonverbal at baseline, renal insufficiency who was brought in from SNF for hyponatremia. He recently tested positive for COVID-19. Patient is nonverbal at baseline and unable to provide much history. During his hospital admission patient was found to be hyponatremic in the 120s with mild DURGA prerenal azotemia that responded to fluids along with diet support. Patient also found to have Enterococcus UTI started on Augmentin per ID. He was also noted to have leukopenia, in which hematology and oncology Dr. Carrillo evaluated patient. Medically stable from heme-onc standpoint as long as ANC greater than 500 which has been throughout his admission. Throughout his admission patient remained hemodynamically stable with no respiratory compromise. Concerns about his oral intake and failure to thrive were evaluated and patient seen by GI along with nutritional consult. Patient found to eat 50 to 75% of all his meals with nursing assist. Patient's electrolytes abnormalities and DURGA have resolved. Patient otherwise remained medically stable for safe discharge back to [facility]. # Hypovolemic hyponatremia 2/2 poor oral intake #Failure to thriveimproved # COVID-19 infection # UTI 2/2 Enterococcus #Leukopenia # Respiratory alkalosis - on ABG # Normocytic anemia likely secondary to ACD # DURGA 2/2 prerenal azotemia # Essential hypertension # ?Chronic encephalopathy # Hyperlipidemia # History of CVA # Nonverbal P: He was found to be Covid positive prior to admission, however remained hemodynamically stable without any acute respiratory compromise, therefore no indication for dexamethasone or remdesivir treatment. Was found to have a UTI Enterococcus will continue 3 more days of Augmentin 875 twice daily to complete a 7-day course Patient able to eat 50 to 75% of his meals when assisted by nurse, so please have nursing director assist with patient feeds at all times. Follow-up serial BMPs to monitor electrolytes and renal function Follow-up serial CBCs, ensure ANC is greater than 500 per heme-onc recs, monitor for signs of infectious processes I personally had a discussion with family, daughter Guillermina Kovacs for discussion about possible PEG in the future, she says she will talk to her family but never returned call Discharge to [facility] Time spent on this encounter was 40 minutes which included 23 minutes of career and guidance counselor ing and care coordination. I discussed with the nurse at bedside. Time of note may not reflect time patient was seen. Discharge Discharge Vital Signs Last Vital Signs Date Time Temp Pulse Resp B/P (MAP) Pulse Ox O2 Delivery O2 Flow Rate FiO2 05/16/20 12:00 98.0 71 18 145/73 (97) 98 05/16/20 09:00 Room Air 05/07/20 16:02 21 Discharge Disposition Patient was discharged to Discharge Instructions Discharge Instructions Activity: Marcell Werner D.O May 16, 2020 13:35
[2020-05-16] MEDS ORDERED: Dronabinol ORAL (13:39)
--- NOTE | 2020-05-16 13:57 | NUR ---
NURSE NOTES: RN gave report to CARO Chavez from [facility]. RN endorsed that patient is AAOx1, contracted x4, bed bound and aspiration precaution. Patient is on NC 2L/m. patients packet has been printed and is ready to be picked up. patient has no skin issues. Family member notified for discharge. RN left call back number for nurse to call for any further question
--- NOTE | 2020-05-16 14:02 | Surgery Progress Note ---
Surgery Progress Note Subjective Symptoms: improved, tolerating diet, passing flatus, BM Objective Last 24 Hour Vital Signs Date Time Temp Pulse Resp B/P (MAP) Pulse Ox O2 Delivery O2 Flow Rate FiO2 05/16/20 12:00 98.0 71 18 145/73 (97) 98 05/16/20 09:00 Room Air 05/16/20 08:00 98.4 76 18 126/66 (86) 98 05/16/20 04:00 98.2 69 16 130/76 (94) 95 05/16/20 00:00 97.9 70 18 136/83 (100) 99 05/15/20 21:00 Room Air 05/15/20 20:00 97.9 68 17 158/85 (109) 98 05/15/20 16:00 98.2 75 18 148/76 (100) 96 I&O Intake and Output 05/15/20 05/16/20 19:00 07:00 Intake Total 1220 ml Output Total 800 ml 350 ml Balance 420 ml -350 ml Intake Oral 360 ml IV Total 860 ml Output Urine Total 800 ml 350 ml # Bowel Movements 1 1 Dressing: saturated Cardiovascular: RSR Respiratory: decreased breath sounds Abdomen: flat, non-tender, present bowel sounds, non-distended Extremities: no tenderness, no cyanosis Plan Problems: (1) Hyponatremia (2) UTI (urinary tract infection) (3) COVID-19 (4) Abdominal pain Assessment & Plan: KUB noted likely constipated recommend bowel regimen hold on further imaging okay for diet needs more oral intake having bowel function improved activity as tolerated will follow with exam and recs thank you penile soft tissue pelvic swelling. likely seroma. does not seem to be abscess. will monitor toth causing breakdown of penile meatus chronic contractures d/c planning Abdomen: Nonobstructive but nonspecific bowel gas pattern. Moderate to large amount of stool. No free air. Bones: Chronic appearing deformity of the proximal right femur. Soft tissues: Normal. IMPRESSION: Nonobstructive but nonspecific bowel gas pattern. Moderate to large amount of stool. Liver: Liver length 12.1 cm. No intrahepatic bile duct dilation. Flow in the portal vein is towards the liver. Gallbladder: Unremarkable. No gallstones. Common bile duct: Common bile duct measures 7 mm. No stones. Visualized right kidney is unremarkable. No hydronephrosis. Pancreas not well-visualized. IMPRESSION: Mild dilated common bile duct measuring 7 mm. Liver and gallbladder are within normal limits. Harry Brown May 16, 2020 14:02
[2020-05-16] MEDS ORDERED: Tubing IV Secondary IV ONE (14:19)
--- NOTE | 2020-05-16 14:20 | NUR ---
NURSE NOTES: patient was picked up and discharged in stable condition. Patient arm band and IV site was removed. Packets given to ambulance personnel. patient had no belongings and was unable to sign. Patient was then transferred to [facility] and escorted to the ambulance safely
== END 2020-05-16 14:20 | DRG 177 ==
LOC: EDBD 11:44 → EDBEDREQ 12:01 → EMR 13:39 → 2E 13:49 → EDBEDREQ 15:10 → 2E 15:35 → 4E 05-13 12:33
DX: U07.1 COVID-19 (principal); J12.89 Other viral pneumonia; E87.1 Hypo-osmolality and hyponatremia; N39.0 Urinary tract infection, site not specified; N17.9 Acute kidney failure, unspecified; G93.40 Encephalopathy, unspecified; E87.3 Alkalosis; I10 Essential (primary) hypertension; D63.8 Anemia in other chronic diseases classified elsewhere; E78.5 Hyperlipidemia, unspecified; B95.2 Enterococcus as the cause of diseases classified elsewhere; D64.9 Anemia, unspecified; R62.7 Adult failure to thrive; Z86.73 Personal history of transient ischemic attack (TIA), and cerebral infarction without residual deficits; K59.00 Constipation, unspecified; N40.0 Benign prostatic hyperplasia without lower urinary tract symptoms
CPT/HCPCS: 36415; 71045; 74018; 76705; 80048; 80053; 80202; 81001; 81003; 82164; 82270; 82607; 82728; 82746; 82803; 82962; 83540; 83550; 83605; 83615; 83735; 83880; 84100; 84484; 85007; 85025; 85379; 85610; 85730; 86140; 86703; 86705; 86709; 86710; 86803; 87040; 87081; 87086; 87181; 87340; 93005; 94640; 96361; 96365; 96367; 96375; 99285; J7030; U0002